=== PATIENT | male | born 1965 | race Caucasian/White ===

== ENCOUNTER → 2023-04-30 | Outpatient (CLI) | payer BC ==
--- NOTE | 2023-04-30 13:59 | US ---
EXAMINATION TYPE: US venous doppler duplex UE RT DATE OF EXAM: 04/30/2023 COMPARISON: NONE CLINICAL INDICATION: Male, 58 years old with history of R22.31 SWELLING, MASS AND LUMP; Redness and s welling right upper extrem SIDE PERFORMED: Right Right Arm: Negative for DVT IMPRESSION: Grayscale, color doppler, spectral doppler imaging performed of the deep veins of the upper extremiti es. There is normal flow, compressibility and vascular waveforms.
== END | disposition home or self-care (01) ==
LOC: RADUSWWP 13:10
PROVIDERS: ATTEND Family Medicine
DX: R22.31 Localized swelling, mass and lump, right upper limb (principal)

== ENCOUNTER 2024-05-26 10:31 | Inpatient (IN) | payer BC, OTHER ==
[2024-05-26] MEDS ORDERED: ALPRAZolam 0.5 MG TAB PO PRN (10:51)
[2024-05-26] MEDS ORDERED: NITROGLYCERIN SL TABS 0.4 MG TAB SUBLINGUAL PRN (10:51)
[2024-05-26] MEDS ORDERED: ALPRAZolam 0.25 MG TAB PO PRN (10:51)
[2024-05-26 11:24] LABS: Basophils % (A) 1 %; Eosinophils # (A) 0.2 k/uL (0-0.7); Eosinophils % (A) 2 %; HCT 47.2 % (39.0-53.0); HGB 16.2 gm/dL (13.0-17.5); Lymphocytes # (A) 1.8 k/uL (1.0-4.8); Lymphocytes % (A) 22 %; MCH 29.5 pg (25.0-35.0); MCHC 34.3 g/dL (31.0-37.0); MCV 86.1 fL (80.0-100.0); Mean Platelet Volume 9.4; Monocytes # (A) 0.5 k/uL (0-1.0); Monocytes % (A) 6 %; Neutrophils # (A) 5.4 k/uL (1.3-7.7); Neutrophils % (A) 69 %; Platelet Count 156 k/uL (150-450); RBC 5.49 m/uL (4.30-5.90); WBC 7.9 k/uL (3.8-10.6)
[2024-05-26] MEDS ORDERED: NALOXONE 0.4 MG/ML 1 ML VIAL IV PRN (11:25)
[2024-05-26 11:31] LABS: African American GFR (CKD) 73 (>60 ml/min/1.73 sqM); Anion Gap 12 mmol/L; Blood Urea Nitrogen 13 mg/dL (9-20); Calcium 9.5 mg/dL (8.4-10.2); Carbon Dioxide 22 mmol/L (22-30); Chloride 108 mmol/L (98-107); Glucose 108 mg/dL (74-99); Non-African American GFR(CKD) 63 (>60 ml/min/1.73 sqM); Potassium 4.3 mmol/L (3.5-5.1); Sodium 142 mmol/L (137-145)
--- NOTE | 2024-05-26 12:08 | ED ---
General Adult HPI - General Chief complaint: Recheck/Abnormal Lab/Rx Stated complaint: abnormal stress test Time Seen by Provider: 05/26/24 10:39 Source: patient, RN notes reviewed, old records reviewed Mode of arrival: ambulatory Limitations: no limitations - History of Present Illness Initial comments: 59 yo male presenting from outpatient stress testing with abnormal stress test. Patient sent in by cardiology with plan for heart catheterization tomorrow. Patient denies current symptoms no chest pain no dyspnea. He states he did have dyspnea approximately 1 month ago which is what prompted his stress test. No nausea. No vomiting. No fever. No cough. - Related Data Allergies Allergy/AdvReac Type Severity Reaction Status Date / Time No Known Allergies Allergy Verified 05/26/24 10:44 Review of Systems ROS Statement: Those systems with pertinent positive or pertinent negative responses have been documented in the HPI. ROS Other: All systems not noted in ROS Statement are negative. Past Medical History Past Medical History: Diabetes Mellitus, Hypertension Additional Past Surgical History / Comment(s): bilateral knee surgery, Past Psychological History: No Psychological Hx Reported Smoking Status: Never smoker Past Alcohol Use History: Occasional Past Drug Use History: None Reported General Exam Limitations: no limitations General appearance: alert, in no apparent distress Head exam: Present: atraumatic, normocephalic Eye exam: Present: normal appearance, PERRL ENT exam: Present: normal exam Neck exam: Present: normal inspection. Absent: tenderness, meningismus Respiratory exam: Present: normal lung sounds bilaterally. Absent: respiratory distress, wheezes Cardiovascular Exam: Present: regular rate, normal rhythm GI/Abdominal exam: Present: soft. Absent: distended, tenderness Extremities exam: Present: normal inspection Course Vital Signs 05/26/24 05/26/24 10:40 11:49 Temperature 98.0 F Pulse Rate 74 62 Respiratory 18 18 Rate Blood Pressure 125/83 135/91 O2 Sat by Pulse 95 96 Oximetry Medical Decision Making - Medical Decision Making Was pt. sent in by a medical professional or institution (, PA, LENS MOUNTER, urgent care, hospital, or shelter...) When possible be specific @ -Sent in by cardiology after abnormal stress test. Did you speak to anyone other than the patient for history (EMS, parent, family, police, friend...)? What history was obtained from this source @ -No Did you review nursing and triage notes (agree or disagree)? Why? @ -I reviewed and agree with nursing and triage notes Were old charts reviewed (outside hosp., previous admission, EMS record, old EKG, old radiological studies, urgent care reports/EKG's, shelter records)? Report findings @ -No old charts were reviewed Differential Chest Pain: Stable Angina, Unstable Angina, STEMI, NSTEMI Aortic Dissection, Pneumothorax, Musculoskeletal, Esophageal Spasm GERD, Cholecystitis, Pancreatitis, Zoster, this is not meant to be an all-inclusive list. EKG interpreted by me (3pts min.). @EKG: Sinus rhythm rate of 65, OH interval 197, QRS duration 102, QTc [address] segment elevation. X-rays interpreted by me (1pt min.). @ -None done CT interpreted by me (1pt min.). @ -None done U/S interpreted by me (1pt. min.). @ -None done What testing was considered but not performed or refused? (CT, X-rays, U/S, labs)? Why? @ -None What meds were considered but not given or refused? Why? @ -None Did you discuss the management of the patient with other professionals (professionals i.e. , PA, LENS MOUNTER, lab, RT, psych nurse, director of social services, client solutions director, teacher, humane officer, protective services case worker)? Give summary @ -No Was smoking cessation discussed for >3mins.? @ -No Was critical care preformed (if so, how long)? @ -No Were there social determinants of health that impacted care today? How? (Homelessness, low income, unemployed, alcoholism, drug addiction, transportation, low edu. Level, literacy, decrease access to med. care, alf, rehab)? @ -No Was there de-escalation of care discussed even if they declined (Discuss DNR or withdrawal of care, Hospice)? DNR status @ -No What co-morbidities impacted this encounter? (DM, HTN, Smoking, COPD, CAD, Cancer, CVA, ARF, Chemo, Hep., AIDS, mental health diagnosis, sleep apnea, morbid obesity)? @ -None Was patient admitted / discharged? Hospital course, mention meds given and route, prescriptions, significant lab abnormalities, going to OR and other pertinent info. @ -59-year-old male presenting for evaluation after abnormal stress test. Patient chest pain-free in the emergency department. Planned to be admitted for heart catheterization tomorrow. Case discussed with the admitting physician Dr. Nice. Undiagnosed new problem with uncertain prognosis? @ -No Drug Therapy requiring intensive monitoring for toxicity (Heparin, Nitro, Insulin, Cardizem)? @ -No Were any procedures done? @ -No Diagnosis/symptom? @Abnormal stress test Acute, or Chronic, or Acute on Chronic? @ -[Acute Uncomplicated (without systemic symptoms) or Complicated (systemic symptoms)? @ -Default Side effects of treatment? @ -No Exacerbation, Progression, or Severe Exacerbation? @ -No Poses a threat to life or bodily function? How? (Chest pain, [place], CO, pneumonia, PE, COPD, DKA, ARF, appy, cholecystitis, CVA, Diverticulitis, Homicidal, Suicidal, threat to staff... and all critical care pts) @ -ACS - Lab Data Result diagrams: 05/26/24 11:09 05/26/24 11:09 Lab Results 05/26/24 05/26/24 Range/Units 11: 11:09 WBC 7.9 (3.8-10.6) k/uL RBC 5.49 (4.30-5.90) m/uL Hgb 16.2 (13.0-17.5) gm/dL Hct 47.2 (39.0-53.0) % MCV 86.1 (80.0-100.0) fL MCH 29.5 (25.0-35.0) pg MCHC 34.3 (31.0-37.0) g/dL RDW 13.0 (11.5-15.5) % Plt Count 156 (150-450) k/uL MPV 9.4 Neutrophils % 69 % Lymphocytes % 22 % Monocytes % 6 % Eosinophils % 2 % Basophils % 1 % Neutrophils # 5.4 (1.3-7.7) k/uL Lymphocytes # 1.8 (1.0-4.8) k/uL Monocytes # 0.5 (0-1.0) k/uL Eosinophils # 0.2 (0-0.7) k/uL Basophils # 0.0 (0-0.2) k/uL Sodium 142 (137-145) mmol/L Potassium 4.3 (3.5-5.1) mmol/L Chloride 108 H (98-107) mmol/L Carbon Dioxide 22 (22-30) mmol/L Anion Gap 12 mmol/L BUN 13 (9-20) mg/dL Creatinine 1.24 (0.66-1.25) mg/dL Est GFR (CKD-EPI)AfAm 73 (>60 ml/min/1.73 sqM) Est GFR (CKD-EPI)NonAf 63 (>60 ml/min/1.73 sqM) Glucose 108 H (74-99) mg/dL Calcium 9.5 (8.4-10.2) mg/dL Disposition Clinical Impression: Abnormal stress test Disposition: ADMITTED IP TO THIS [facility] Condition: Stable Is patient prescribed a controlled substance at d/c from ED?: No Referrals: Bhavesh Plummer DO [Primary Care Provider] - 1-2 days Time of Disposition: 12:08
[2024-05-26 12:11] LABS: Glucose,Whole Blood 96 mg/dL (70-110)
--- NOTE | 2024-05-26 12:47 | P.CRDCN ---
History of Present Illness History of present illness: HISTORY OF PRESENT ILLNESS: This is a 59-year-old male with a past medical history significant for hypertension, hyperlipidemia, and diabetes. Patient does not follow with a news librarian. Patient initially presented to the hospital this morning for an outpatient stress test. Patient states he has been having shortness of breath with exertion for approximately 2 months. Patient exercised for approximately 7 minutes on the treadmill. He was unable to reach his target heart rate due to significant shortness of breath. Patient did appear slightly ashen in color at that time. He denied having any chest pain. He did report having maybe some vague chest tightness. EKG at that time revealed ST elevation in aVR and ST depressions in inferior lateral leads. Patient's EKG changes did resolve with rest. Recommendation was made for hospital admission with cardiac catheterization to be performed tomorrow. The patient is agreeable. He is a non-smoker. He reports a family history of heart disease. He states his dad had issues with his heart valves but does not think he had any problems with heart blockages. DIAGNOSTICS: - EKG reveals this mechanism with no signs of acute ischemia. - Laboratory data: WBC 7.9. Hemoglobin 16.2. Platelet count 156. Sodium 142. Potassium 4.3. BUN 13. Creatinine 1.24. - Current home cardiac medications include metoprolol tartrate 100 mg twice a day and amlodipine 10 mg daily REVIEW OF SYSTEMS: At the time of my exam: CONSTITUTIONAL: Denies fever or chills. HEENT: Denies blurred vision, vision changes, or eye pain. Denies hemoptysis CARDIOVASCULAR: Denies chest pain. Denies orthopnea. Denies PND. Denies palpitations RESPIRATORY: Denies shortness of breath. GASTROINTESTINAL: Denies abdominal pain. Denies nausea or vomiting. HEMATOLOGIC: Denies bleeding disorders. GENITOURINARY: Denies any blood in urine. SKIN: Denies pruitis. Denies rash. PHYSICAL EXAM: VITAL SIGNS: Reviewed. GENERAL: Well-developed in no acute distress. HEENT: Head is normocephalic. Pupils are equal, round. Sclerae anicteric. Mucous membranes of the mouth are moist. Neck supple. No JVD or thyromegaly LUNGS: Respirations even and unlabored. Lungs essentially clear to auscultation bilaterally. HEART: Regular rate and rhythm. S1 and S2 heard. ABDOMEN: Soft. Nondistended. Nontender. EXTREMITIES: Normal range of motion. No clubbing or cyanosis. Peripheral pulses intact. No lower extremity edema NEUROLOGIC: Awake and alert. Oriented x 3. ASSESSMENT: Exertional shortness of breath x 2 months Abnormal stress test with ST elevation in aVR and ST depression in inferior lateral leads, concerning for CAD Hypertension Hyperlipidemia Diabetes Obesity: BMI 34.4 PLAN: Obtain 2D echo to assess cardiac structure and function Resume home cardiac medications Add aspirin 81 mg daily and atorvastatin 80 mg at night Check hemoglobin A1c and lipid panel N.p.o. at midnight Patient to undergo cardiac catheterization tomorrow with Dr. Morel at 0900 Patient DOES NOT require troponins to be drawn. Additionally, No IV heparin indicated at this time. Add subcu heparin. Admit to 6N with telemetry Further recommendations pending patient course Nurse practitioner note has been reviewed by physician. Signing provider agrees with the documented findings, assessment, and plan of care documented by ASSOCIATE SOFTWARE DEVELOPER as a scribe. Past Medical History Past Medical History: Diabetes Mellitus, Hypertension Additional Past Surgical History / Comment(s): bilateral knee surgery, Past Psychological History: No Psychological Hx Reported Smoking Status: Never smoker Past Alcohol Use History: Occasional Past Drug Use History: None Reported Medications and Allergies Home Medications Medication Instructions Recorded Confirmed Type Colchicine 0.6 mg PO BID PRN 05/26/24 05/26/24 History Febuxostat [Uloric] 80 mg PO DAILY 05/26/24 05/26/24 History HYDROcodone/APAP 10-325MG [[place] 1 tab PO TID 05/26/24 05/26/24 History 10-325] Metoprolol Tartrate [Lopressor] 100 mg PO BID 05/26/24 05/26/24 History Probenecid [Benemid] 500 mg PO BID 05/26/24 05/26/24 History Semaglutide [Ozempic] 0.5 mg SQ MO 05/26/24 05/26/24 History amLODIPine [Norvasc] 10 mg PO DAILY 05/26/24 05/26/24 History Allergies Allergy/AdvReac Type Severity Reaction Status Date / Time No Known Allergies Allergy Verified 05/26/24 12:19 Physical Exam Vitals: Vital Signs Temp Pulse Resp BP Pulse Ox 05/26/24 11:49 62 18 135/91 96 05/26/24 10:40 98.0 F 74 18 125/83 95 Intake and Output 05/25/24 05/26/24 05/26/24 22:59 06:59 14:59 Other: Weight 108.862 kg Results 05/26/24 11:09 05/26/24 11:09 CBC 05/26/24 Range/Units 11:09 WBC 7.9 (3.8-10.6) k/uL RBC 5.49 (4.30-5.90) m/uL Hgb 16.2 (13.0-17.5) gm/dL Hct 47.2 (39.0-53.0) % Plt Count 156 (150-450) k/uL Comprehensive Metabolic Panel 05/26/24 Range/Units 11:09 Sodium 142 (137-145) mmol/L Potassium 4.3 (3.5-5.1) mmol/L Chloride 108 H (98-107) mmol/L Carbon Dioxide 22 (22-30) mmol/L BUN 13 (9-20) mg/dL Creatinine 1.24 (0.66-1.25) mg/dL Glucose 108 H (74-99) mg/dL Calcium 9.5 (8.4-10.2) mg/dL Current Medications Generic Name Dose Route Start Last Admin Trade Name Freq PRN Reason Stop Dose Admin Alprazolam 0.25 mg 05/26/24 10:51 Alprazolam 0.25 Mg Tab PO Q6HR PRN Mild Anxiety Alprazolam 0.5 mg 05/26/24 10:51 Alprazolam 0.5 Mg Tab PO Q6HR PRN Moderate Anxiety Amlodipine Besylate 10 mg 05/27/24 09:00 Amlodipine 10 Mg Tab PO DAILY PEDRO Aspirin 81 mg 05/27/24 09:00 Aspirin 81 Mg PO DAILY PEDRO Aspirin 325 mg 05/27/24 05:00 Aspirin 325 Mg Tab PO 05/27/24 05:01 ONCE ONE Atorvastatin Calcium 80 mg 05/26/24 21:00 Atorvastatin 80 Mg Tab PO HS PEDRO Atorvastatin Calcium 80 mg 05/27/24 05:00 Atorvastatin 80 Mg Tab PO 05/27/24 05:01 ONCE ONE Heparin Sodium (Porcine) 10, 1,001 mls @ 999 mls/hr 05/27/24 07:00 000 unit/ Sodium Chloride IRRIGATION 05/27/24 23:00 ONCE PRN INTRA-OP Heparin Sodium (Porcine) 2,500 250.5 mls @ 250 mls/hr 05/27/24 07:00 unit/ Sodium Chloride IRRIGATION 05/27/24 23:00 ONCE PRN INTRA-OP Sodium Chloride 1,000 ml/ IV 1,000 mls @ 108.862 mls/hr 05/27/24 02:00 Solution IV .Q9H12M PEDRO 1 ML/KG/HR Naloxone HCl 0.2 mg 05/26/24 11:25 Naloxone 0.4 Mg/Ml 1 Ml Vial IV 06/25/24 11:24 Q2M PRN Opioid Reversal Nitroglycerin 0.4 mg 05/26/24 10:51 Nitroglycerin Sl Tabs 0.4 Mg Tab SUBLINGUAL Q5M PRN Chest Pain Non-Formulary Medication 100 mg 05/26/24 21:00 Metoprolol Tartrate [Lopressor] PO BID PEDRO Intake and Output 05/25/24 05/26/24 05/26/24 22:59 06:59 14:59 Other: Weight 108.862 kg Patient Weight 05/27/24 06:59 Weight 108.862 kg 05/26/24 11:09 05/26/24 11:09
[2024-05-26] MEDS: NITROGLYCERIN OINT 1 INCH/GM PACKET TOPICAL SCH (14:04)
[2024-05-26 15:06] LABS: Chol/HDL Ratio 6.06 Ratio; LDL Cholesterol,Calculated 147.5 mg/dL (0.0-131.0)
[2024-05-26] MEDS: HEPARIN SODIUM,PORCINE 5,000 UNIT/ML 1 ML VIAL SQ SCH (15:53)
--- NOTE | 2024-05-26 16:35 | XR ---
EXAMINATION TYPE: XR chest 1V DATE OF EXAM: 05/26/2024 COMPARISON: NONE HISTORY: Chest pain TECHNIQUE: Single frontal view of the chest is obtained. FINDINGS: There is no focal air space opacity, pleural effusion, or pneumothorax seen. The cardiac silhouette size is within normal limits. The osseous structures are intact. IMPRESSION: No acute process. [facility], Workstation: [facility], 05/26/2024 4:33 PM
--- NOTE | 2024-05-26 17:44 | P.HPIM ---
History of Present Illness H&P Date: 05/26/24 Patient is a 59-year-old male with history of type 2 diabetes, hyperlipidemia and hypertension came to the ER after he had a abnormal stress test at cardiology office earlier today. Patient says that he has been having mild exertional dyspnea associated with some chest tightness for approximately 2 to 3 months. Patient states that he only experiences these symptoms while he is exerting himself physically and these will resolve at rest. He is not complaining of any active chest pain and or shortness of breath. No recent upper respiratory tract infection. Denies previous episodes of coronary artery disease and or CVA. Denies previous history of arrhythmias. Patient has a recent travel history where he flew from [place] to [place] last week. Denies any lower extremity pain. Denies being on any blood thinner. No recent hospitalization. Patient admits to having orthopnea but denies PND. Patient denies uses of illicit drugs and is a chronic non-smoker. Lab evaluation in the ER shows WBC of 7.9, hemoglobin 16.2, MCV 86.1, platelet count 136, sodium 142, potassium 4.3, chloride 108, bicarb 22, BUN 13, creatinine 1.24, EGFR 73, glucose 108, HbA1c 6.7, calcium 9.5, cholesterol 220, LDL 147, HDL 36.3 Chest x-ray interpreted independently shows no acute cardiopulmonary process. EKG interpreted independently shows sinus rhythm with normal QRS and QTc. Poor R wave progression. Review of systems: Pertinent positives and negatives as discussed in HPI, a complete review of sy stems was performed and all other systems are negative. Family History: Coronary artery disease in father Physical examination: Vital signs reviewed General: non toxic, no distress, appears at stated age, normal weight Derm: no unusual rashes/lesions, warm Head: atraumatic, normocephalic, symmetric Eyes: EOMI, no lid lag, anicteric sclera, pupils equal round reactive to light ENT: Nose and ears atraumatic Neck: No cervical lymphadenopathy, trachea midline, supple Mouth: no lip lesion, mucus membranes moist Cardiovascular: S1S2 reg, no murmur, positive dorsalis pedis pulse bilateral, no edema Lungs: CTA bilateral, no rhonchi, no rales, no accessory muscle use Abdominal: soft, nontender to palpation, no guarding Ext: muscle strength 5 out of 5 in all 4 extremities grossly, no gross muscle atrophy, no contractures, Neuro: CN II-XI grossly intact, no gross focal neuro deficits Psych: Alert, oriented, appropriate affect Assessment/Plan: 59-year-old male with history of type 2 diabetes, hyperlipidemia, and hypertension initially came to the ER with a abnormal stress test done outpati ent cardiology. Patient is admitted for stable angina with cardiac catheterization planned for tomorrow. #Abnormal stress test #Unstable angina Aspirin 81 mg p.o. daily Lipitor 80 mg p.o. at bedtime Heparin drip Cardiology consulted, cardiac cath tomorrow a.m. Nitro sublingual tablets Order lipid panel, TSH, HbA1c Trend troponin every 3 hours Echocardiogram Heart healthy diet and n.p.o. after midnight Continue cardiac monitoring CBC and BMP tomorrow Chest x-ray ordered Chronic condition: Hypertension: Resume Norvasc 10 mg p.o. daily Type 2 diabetes: Hold Ozempic Gout: Hold colchicine, Pepcid statin: Probenecid DVT prophylaxis: Heparin The patient is admitted with an anticipated less than 2 midnight stay for evaluation of abnormal stress test CODE STATUS: Full code Discussed with: Patient Anticipated discharge place: Home I saw and evaluated the patient during the manriquez and critical portions of this encounter, and discussed the case in detail with the resident author of this note, I agree with the Assessment and Plan, and my changes, if any, are highlighted in blue. Past Medical History Past Medical History: Diabetes Mellitus, Hypertension Additional Past Surgical History / Comment(s): bilateral knee surgery, Past Psychological History: No Psychological Hx Reported Smoking Status: Never smoker Past Alcohol Use History: Occasional Past Drug Use History: None Reported Medications and Allergies Home Medications Medication Instructions Recorded Confirmed Type Colchicine 0.6 mg PO BID PRN 05/26/24 05/26/24 History Febuxostat [Uloric] 80 mg PO DAILY 05/26/24 05/26/24 History HYDROcodone/APAP 10-325MG [[place] 1 tab PO TID 05/26/24 05/26/24 History 10-325] Metoprolol Tartrate [Lopressor] 100 mg PO BID 05/26/24 05/26/24 History Probenecid [Benemid] 500 mg PO BID 05/26/24 05/26/24 History Semaglutide [Ozempic] 0.5 mg SQ MO 05/26/24 05/26/24 History amLODIPine [Norvasc] 10 mg PO DAILY 05/26/24 05/26/24 History Allergies Allergy/AdvReac Type Severity Reaction Status Date / Time No Known Allergies Allergy Verified 05/26/24 12:19 Physical Exam Osteopathic Statement: *. No significant issues noted on an osteopathic structural exam other than those noted in the History and Physical/Consult. Vitals: Vital Signs Temp Pulse Resp BP Pulse Ox 05/26/24 15:26 57 L 18 127/73 96 05/26/24 14:17 61 18 131/83 05/26/24 12:41 61 18 124/96 97 05/26/24 11:49 62 18 135/91 96 05/26/24 10:40 98.0 F 74 18 125/83 95 Intake and Output 05/26/24 05/26/24 05/26/24 06:59 14:59 22:59 Other: Weight 108.862 kg Results CBC & Chem 7: 05/26/24 11:09 05/26/24 11:09 Labs: Abnormal Lab Results - Last 24 Hours (Table) 05/26/24 05/26/24 05/26/24 Range/Units 11:09 11:09 11:09 Chloride 108 H (98-107) mmol/L Glucose 108 H (74-99) mg/dL Hemoglobin A1c 6.7 H (<=6.0) % Triglycerides 181.00 H (0.00-149.00) mg/dL Cholesterol 220.00 H (0.00-200.00) mg/dL LDL Cholesterol, Calc 147.5 H (0.0-131.0) mg/dL HDL Cholesterol 36.30 L (40.00-60.00) mg/dL
--- NOTE | 2024-05-26 17:45 | CA ---
Transthoracic Echo Report Name: Nilson Boswell Age: 59 Gender: M : 1965 Exam Date: 05/26/2024 13:57 Exam Location: [facility] Ht (in): 70 Wt (lb): 249 Ordering Physician: Danielle Moreno Attending/Referring Phys: [id number], Josh Medical Van Driver Liliana Dominguez, NILO Procedure CPT: Indications: LV function, abnormal stress test Cardiac Hx: Technical Quality: Fair Contrast 1: Total Dose (mL): Contrast 2: Total Dose (mL): MEASUREMENTS (Male / Female) Normal Values 2D ECHO LV Diastolic Diameter PLAX 3.1 cm 4.2 - 5.9 / 3.9 - 5.3 cm LV Systolic Diameter PLAX 3.0 cm IVS Diastolic Thickness 1.2 cm 0.6 - 1.0 / 0.6 - 0.9 cm LVPW Diastolic Thickness 1.1 cm 0.6 - 1.0 / 0.6 - 0.9 cm LV Relative Wall Thickness 0.7 RV Internal Dim ED PLAX 2.9 cm LVOT Diameter 1.7 cm LA Systolic Diameter LX 3.6 cm 3.0 - 4.0 / 2.7 - 3.8 cm LV Diastolic Volume MOD BP 56.2 cm??? 67 - 155 / 56 - 104 cm??? LV Systolic Volume MOD BP 33.9 cm??? 22 - 58 / 19 - 49 cm??? LV Ejection Fraction MOD BP 39.8 % >= 55 % LV Diastolic Volume MOD 4C 51.5 cm??? LV Systolic Volume MOD 4C 37.0 cm??? LV Ejection Fraction MOD 4C 55.0 % LV Diastolic Length 4C 7.6 cm LV Systolic Length 4C 6.6 cm LV Diastolic Volume MOD 2C 61.1 cm??? LV Systolic Volume MOD 2C 28.8 cm??? LV Ejection Fraction MOD 2C 52.9 % LV Diastolic Length 2C 7.4 cm LV Systolic Length 2C 7.2 cm LA Volume 41.5 cm??? 18 - 58 / 22 - 52 cm??? LA Volume Index 17.3 cm???/m??? 16 - 28 cm???/m??? M-MODE Aortic Root Diameter MM 3.1 cm LA Systolic Diameter MM 3.2 cm LA Ao Ratio MM 1.0 AV Cusp Separation MM 1.1 cm DOPPLER AV Peak Velocity 175.6 cm/s AV Peak Gradient 12.3 mmHg AV Mean Velocity 123.6 cm/s AV Mean Gradient 6.8 mmHg AV Velocity Time Integral 41.8 cm LVOT Peak Velocity 84.5 cm/s LVOT Peak Gradient 2.9 mmHg LVOT Velocity Time Integral 20.1 cm LVOT Stroke Volume 47.5 cm??? LVOT Stroke Volume Index 20.7 ml/m??? AV Area Cont Eq vti 1.1 cm??? AV Area Cont Eq pk 1.1 cm??? MV Area PHT 3.4 cm??? Mitral E Point Velocity 89.1 cm/s Mitral A Point Velocity 79.3 cm/s Mitral E to A Ratio 1.1 MV Deceleration Time 220.9 ms TR Peak Velocity 221.9 cm/s TR Peak Gradient 19.7 mmHg FINDINGS Left Ventricle Left ventricular ejection fraction is estimated at 55-60 %. Mildly increased septal wall thickness. Normal left ventricular systolic function with no obvious regional wall motion abnormalities. Left ventricular cavity size normal. Right Ventricle Normal right ventricular size and function. Right ventricular systolic pressure within normal limits. Right Atrium Normal right atrial size. Left Atrium Normal left atrial size. Mitral Valve Structurally normal mitral valve. Mild mitral regurgitation. No mitral stenosis. Aortic Valve Trileaflet aortic valve. Focal thickening of the aortic valve cusps. Diffuse thickening (sclerosis) of the aortic valve cusps without reduced excursion. No aortic regurgitation. Tricuspid Valve Structurally normal tricuspid valve. Trace tricuspid regurgitation. No tricuspid stenosis. Pulmonic Valve Structurally normal pulmonic valve. Trace pulmonic regurgitation. No pulmonic stenosis. Pericardium No pericardial or pleural effusion. Aorta Normal size aortic root and proximal ascending aorta. CONCLUSIONS Normal LV function Aortic sclerosis without any stenosis Previewed by: Dr. Darnell Morel MD (Electronically Signed) Final Date: 26 May 2024 17:44
[2024-05-26] MEDS: METOPROLOL TARTRATE 50 MG TAB PO SCH (19:56)
[2024-05-26] MEDS: ATORVASTATIN 80 MG TAB PO SCH (19:56)
[2024-05-27] MEDS: SODIUM CHLORIDE 0.9% 1,000 ML in EMPTY BAG 1 BAG IV SCH (00:52)
[2024-05-27] MEDS: ATORVASTATIN 80 MG TAB PO ONE (05:46)
[2024-05-27] MEDS: ASPIRIN 325 MG TAB PO ONE (05:46)
[2024-05-27] MEDS ORDERED: HEPARIN SODIUM,PORCINE (1 ML) 2,500 UNIT in SODIUM CHLORIDE 0.9% 250 ML IRRIGATION PRN (07:00)
[2024-05-27] MEDS ORDERED: HEPARIN SODIUM,PORCINE 10,000 UNIT in SODIUM CHLORIDE 0.9% 1,000 ML IRRIGATION PRN (07:00)
[2024-05-27] MEDS: ASPIRIN 81 MG PO SCH (08:21)
[2024-05-27 08:30] LABS: Basophils # (A) 0.05 X 10*3/uL (0.00-0.10); Basophils % (A) 0.8 %; Eosinophils # (A) 0.16 X 10*3/uL (0.04-0.35); Eosinophils % (A) 2.7 %; HCT 43.3 % (39.6-50.0); HGB 15.1 g/dL (13.0-17.0); Lymphocytes # (A) 2.06 X 10*3/uL (0.90-5.00); Lymphocytes % (A) 34.9 %; MCH 29.3 pg (27.0-32.0); MCHC 34.9 g/dL (32.0-37.0); MCV 84.1 FL (80.0-97.0); Mean Platelet Volume 11.4 FL (9.5-12.2); Monocytes # (A) 0.44 X 10*3/uL (0.20-1.00); Monocytes % (A) 7.5 %; NRBC Per 100 WBC 0 X 10*3/uL (0.00-0.01); Neutrophils # (A) 3.17 X 10*3/uL (1.80-7.70); Neutrophils % (A) 53.8 %; Platelet Count 146 X 10*3/uL (140-440); RBC 5.15 X 10*6/uL (4.40-5.60); RDW 12.5 % (11.5-14.5)
[2024-05-27] MEDS: amLODIPine 10 MG TAB PO SCH (08:32)
[2024-05-27 09:05] LABS: BUN/Creat Ratio 11.91 Ratio (12.00-20.00); Blood Urea Nitrogen 13.1 mg/dL (9.0-27.0); Calcium 8.9 mg/dL (8.7-10.3); Carbon Dioxide 20.8 mmol/L (21.6-31.8); Chloride 108 mmol/L (96-109); Glucose 97 mg/dL (70-110); Sodium 140 mmol/L (135-145)
[2024-05-27] MEDS: MIDAZOLAM 2 MG/2 ML VIAL IVP ONE (10:29)
[2024-05-27] MEDS: fentaNYL (PF) 50 MCG/ML 2 ML AMP IVP ONE (10:29)
[2024-05-27] MEDS: LIDOCAINE 1% INJ 10MG/ML (20 ML MDV) SQ ONE (10:30)
[2024-05-27] MEDS: VERAPAMIL SYRINGE (5 MG/10 ML) INTRAARTER ONE (10:32)
[2024-05-27] MEDS: HEPARIN SODIUM 1,000 UN/ML (10ML VL) IVP ONE (10:35)
[2024-05-27] MEDS: IOPAMIDOL-370 100ML BTL INJ ONE (10:55)
[2024-05-27] MEDS: IV FLUID CONTINUATION 250 ML IV ONE (10:56)
[2024-05-27] MEDS: HEPARIN SODIUM,PORCINE 10,000 UNIT in SODIUM CHLORIDE 0.9% 1,000 ML IRRIGATION ONE (10:56)
[2024-05-27] MEDS: HEPARIN SODIUM,PORCINE (1 ML) 2,500 UNIT in SODIUM CHLORIDE 0.9% 250 ML IRRIGATION ONE (10:56)
[2024-05-27] MEDS ORDERED: HEPARIN SODIUM 1,000 UN/ML (10ML VL) IV PRN (11:09)
--- NOTE | 2024-05-27 11:36 | LTR ---
Dear Bhavesh: I performed cardiac catheterization on Elbert. A detailed catheterization note is enclosed for your records. He came to [facility] for a stress test and because of a markedly abnormal stress test, we admitted him to hospital and performed a cardiac catheterization today that revealed severe 2-vessel coronary artery disease involving the ostial portions of the circ and LAD. The patient will benefit from surgical revascularization and I have consulted Dr. Marie for the same. Thank you for allowing me to participate in this pleasant gentleman. VANNESA / DIANEN: [id number] /
--- NOTE | 2024-05-27 11:36 | CC ---
CARDIAC CATHETERIZATION REPORT INDICATION: Unstable angina. This is a 59-year-old gentleman with history of progressively worsening shortness of breath with activity and chest tightness for the last several weeks, who came into hospital yesterday for an outpatient stress test, walked on the treadmill for 7.5 minutes, had significant ST-segment depression at maximal workload with ST elevation in AVR and was very short of breath. Due to this, I admitted him to perform cardiac catheterization. PROCEDURE NOTE: After obtaining informed consent, left heart catheterization and coronary angiogram were performed via the right radial artery using standard Valerie catheters. The patient tolerated the procedure well without any obvious immediate complications. A TR band was used for hemostasis. The patient received moderate conscious sedation. Total sedation time was 15 minutes. FINDINGS: 1. HEMODYNAMICS: Left ventricular end-diastolic pressure is 8 mm. There is no significant gradient across the aortic valve. 2. LEFT VENTRICULOGRAM: Left ventriculogram was not performed. 3. ANGIOGRAPHIC DATA: a.Right coronary artery: Right coronary artery is a large dominant vessel with mild nonobstructive disease involving mid to distal portion. b.Left main coronary artery appears calcified. The distal left main has a 50% stenosis. The ostial circumflex coronary artery shows a focal 95% stenosis. LAD also has a 90% ostial stenosis via filling defect in the proximal LAD. CONCLUSION: Two-vessel coronary artery disease involving ostial circ and LAD with distal left main stenosis. PLAN: I consulted Dr. Marie and spoke to him. He is going to evaluate the patient today and hopefully the patient will undergo surgery on this admission. I am going to start the patient on heparin later in the day and treat him with aspirin, nitrates, beta blockers, and JENNIFER inhibitors. MMODL / IJN: [id number] /
--- NOTE | 2024-05-27 12:21 | P.GSCN ---
History of Present Illness Consult date: 05/27/24 Reason for Consult: Multivessel coronary artery disease Requesting physician: Darnell Morel History of present illness: This is a 59-year-old gentleman who follows outpatient with Dr. Bhavesh Plummer for internal medicine. He has a previous medical history of hypertension, hyperlipidemia, borderline diabetes, obesity, lifelong non-smoker, and family history of coronary artery disease including premature coronary artery disease in his grandfather. He reports progressive shortness of breath with exertion only for the previous month prompting a stress test completed yesterday. The patient denies any chest pain, nausea, vomiting, dizziness, lightheadedness, or any other symptomatology. Stress test was abnormal with ST elevation in lead aVR and ST depression in the inferolateral leads. He was recommended to report to [facility] emergency room for evaluation and treatment with plans for heart catheterization which was completed today by Dr. Morel. This revealed triple-vessel coronary artery disease. Due to these findings consultation was placed to Dr. Marie from cardiothoracic surgery for surgical revascularization recommendations. Of note patient had a transthoracic echocardiogram completed yesterday revealing preserved left ventricular systolic function with EF 55 to 60%, no wall motion abnormalities, mild mitral and trace tricuspid regurgitation. Review of Systems Review of systems was completed and was negative except as noted - Cardiovascular Reports as per HPI, Reports dyspnea on exertion Past Medical History Past Medical History: Diabetes Mellitus, Hyperlipidemia, Hypertension History of Any Multi-Drug Resistant Organisms: None Reported Past Surgical History: Orthopedic Surgery Additional Past Surgical History / Comment(s): bilateral knee surgery, Past Anesthesia/Blood Transfusion Reactions: No Reported Reaction Past Psychological History: No Psychological Hx Reported Smoking Status: Never smoker Past Alcohol Use History: Occasional Past Drug Use History: None Reported - Past Family History Father Family Medical History: Myocardial Infarction ([place]) Additional Family Medical History / Comment(s): Grandfather diagnosed with early coronary artery disease Mother Family Medical History: Dementia, Myocardial Infarction ([place]) Medications and Allergies Home Medications Medication Instructions Recorded Confirmed Type Colchicine 0.6 mg PO BID PRN 05/26/24 05/26/24 History Febuxostat [Uloric] 80 mg PO DAILY 05/26/24 05/26/24 History HYDROcodone/APAP 10-325MG [[place] 1 tab PO TID 05/26/24 05/26/24 History 10-325] Metoprolol Tartrate [Lopressor] 100 mg PO BID 05/26/24 05/26/24 History Probenecid [Benemid] 500 mg PO BID 05/26/24 05/26/24 History Semaglutide [Ozempic] 0.5 mg SQ MO 05/26/24 05/26/24 History amLODIPine [Norvasc] 10 mg PO DAILY 05/26/24 05/26/24 History Allergies Allergy/AdvReac Type Severity Reaction Status Date / Time No Known Allergies Allergy Verified 05/26/24 12:19 Surgical - Exam Vital Signs Temp Pulse Resp BP Pulse Ox 98.0 F 74 18 125/83 95 05/26/24 10:40 05/26/24 10:40 05/26/24 10:40 05/26/24 10:40 05/26/24 10:40 CONSTITUTIONAL: Awake and alert, appears comfortable, cooperative, well- developed, well-nourished, no pain, no acute distress EYES: Pupils equal, round, reactive to light, normal ocular movement ENT: Moist mucous membranes without oral lesions present NECK: No masses, no bruits, trachea midline RESPIRATORY: Lungs sounds clear to auscultation bilaterally. Respirations even, nonlabored. Currently on room air with oxygen saturation 97%. Strong cough. No chest wall deformities. No clubbing or cyanosis present CARDIOVASCULAR: S1, S2 present. Regular rate and rhythm, sinus rhythm on telemetry. Palpable peripheral pulses bilaterally. No edema present. No calf pain or tenderness noted. No significant lower extremity varicosities noted. Left radial Lorenzo's test less than 8 seconds. GASTROINTESTINAL: Abdomen soft, nontender, nondistended without masses or organomegaly noted. There is no rebound or guarding present. Active bowel sounds present 4 quadrants. GENITOURINARY: Deferred INTEGUMENTARY: Skin is warm and dry with evidence of good perfusion. Right radial heart catheterization site without edema or drainage, T band in place NEUROLOGIC: Cranial nerves II through XII intact, normal coordination, no obvious motor or sensory deficits, speech is normal MUSKULOSKELETAL: Able to move all extremities, strength equal bilaterally, normal posture PSYCHIATRIC: Alert and oriented to person place and time, appropriate affect, intact judgment and insight CLINICAL FRAILTY SCORE 2 Results - Labs 05/27/24 04:43 05/27/24 04:43 Abnormal Lab Results - Last 24 Hours (Table) 05/26/24 05/26/24 05/27/24 Range/Units 11: 11: 04:43 Carbon Dioxide (21.6-31.8) mmol/L BUN/Creatinine Ratio (12.00-20.00) Ratio Hemoglobin A1c 6.7 H 6.6 H (<=6.0) % Triglycerides 181.00 H (0.00-149.00) mg/dL Cholesterol 220.00 H (0.00-200.00) mg/dL LDL Cholesterol, Calc 147.5 H (0.0-131.0) mg/dL HDL Cholesterol 36.30 L (40.00-60.00) mg/dL 05/27/24 Range/Units 04:43 Carbon Dioxide 20.8 L (21.6-31.8) mmol/L BUN/Creatinine Ratio 11.91 L (12.00-20.00) Ratio Hemoglobin A1c (<=6.0) % Triglycerides (0.00-149.00) mg/dL Cholesterol (0.00-200.00) mg/dL LDL Cholesterol, Calc (0.0-131.0) mg/dL HDL Cholesterol (40.00-60.00) mg/dL Diabetes panel 05/26/24 05/26/24 05/27/24 Range/Units 11: 11: 04:43 Sodium (135-145) mmol/L Potassium (3.5-5.5) mmol/L Chloride (96-109) mmol/L Carbon Dioxide (21.6-31.8) mmol/L BUN (9.0-27.0) mg/dL Creatinine (0.6-1.5) mg/dL Glucose (70-110) mg/dL Hemoglobin A1c 6.7 H 6.6 H (<=6.0) % Calcium (8.7-10.3) mg/dL Triglycerides 181.00 H (0.00-149.00) mg/dL HDL Cholesterol 36.30 L (40.00-60.00) mg/dL 05/27/24 Range/Units 04:43 Sodium 140 (135-145) mmol/L Potassium 4.0 (3.5-5.5) mmol/L Chloride 108 (96-109) mmol/L Carbon Dioxide 20.8 L (21.6-31.8) mmol/L BUN 13.1 (9.0-27.0) mg/dL Creatinine 1.1 (0.6-1.5) mg/dL Glucose 97 (70-110) mg/dL Hemoglobin A1c (<=6.0) % Calcium 8.9 (8.7-10.3) mg/dL Triglycerides (0.00-149.00) mg/dL HDL Cholesterol (40.00-60.00) mg/dL Thyroid panel 05/27/24 Range/Units 04:43 TSH 3.320 (0.350-5.500) UIU/ML Calcium panel 05/27/24 Range/Units 04:43 Calcium 8.9 (8.7-10.3) mg/dL Pituitary panel 05/27/24 Range/Units 04:43 Sodium 140 (135-145) mmol/L Potassium 4.0 (3.5-5.5) mmol/L Chloride 108 (96-109) mmol/L Carbon Dioxide 20.8 L (21.6-31.8) mmol/L BUN 13.1 (9.0-27.0) mg/dL Creatinine 1.1 (0.6-1.5) mg/dL Glucose 97 (70-110) mg/dL Calcium 8.9 (8.7-10.3) mg/dL TSH 3.320 (0.350-5.500) UIU/ML Adrenal panel 05/27/24 Range/Units 04:43 Sodium 140 (135-145) mmol/L Potassium 4.0 (3.5-5.5) mmol/L Chloride 108 (96-109) mmol/L Carbon Dioxide 20.8 L (21.6-31.8) mmol/L BUN 13.1 (9.0-27.0) mg/dL Creatinine 1.1 (0.6-1.5) mg/dL Glucose 97 (70-110) mg/dL Calcium 8.9 (8.7-10.3) mg/dL - Imaging Chest x-ray: report reviewed, image reviewed EKG: image reviewed Additional studies: Heart catheterization films reviewed Assessment and Plan Assessment: Two vessel and left main coronary artery disease with exertional SOB as anginal equivalent. History of hypertension Hyperlipidemia, cholesterol 220, LDL 148, triglycerides 181 Borderline diabetes, hemoglobin A1c 6.6% Obesity Lifelong non-smoker Family history of premature coronary artery disease ADDENDUM: Patient seen and examined. Studies reviewed. Case discussed with Dr Morel. He requests CABG this admission. Plan CABG x 2 with [place] LAD and LRA OM this . Plan: The patient was seen and examined laying in bed on the observation unit in no acute distress. Family was present. The patient currently denies any chest pain or shortness of breath. Chart/diagnostics were reviewed. The usual course of open-heart surgery was discussed in detail with the patient and his family, risks and benefits were reviewed, all questions were answered. The case will be discussed with Dr. Marie. Recommend maximizing medical therapy with aspirin, statin, beta-cristina. Will order preoperative testing, once completed we will calculate STS risk score and discuss with the patient. Increase activity as tolerated. More recommendations to follow once surgeon has had the opportunity to review the patient's films. Thank you Dr. Morel for this consult, we will continue to follow along with you and make further recommendations as appropriate. I have personally seen and examined the patient, performed the documentation and the assessment and plan as written. Number of minutes spent on the visit: 30. Melodie Pizarro, KANWAL-C
--- NOTE | 2024-05-27 13:49 | US ---
EXAMINATION TYPE: US carotid duplex BILAT DATE OF EXAM: 05/27/2024 COMPARISON: NONE CLINICAL INDICATION: Male, 59 years old with history of preop cardiac surgery; open heart surgery Additional History: .... TECHNIQUE: Grayscale, color Doppler and spectral Doppler evaluation of the bilateral carotid systems and vertebral arteries.Indirect Doppler criteria was utilized. FINDINGS: EXAM MEASUREMENTS: RIGHT: Peak Systolic Velocity (PSV) cm/sec ----- Right CCA: 58.6 ----- Right ICA: 70.3 ----- Right ECA: 92.5 ICA/CCA ratio: 1.2 RIGHT: End Diastole cm/sec ----- Right CCA: 14.2 ----- Right ICA: 15.5 ----- Right ECA: 9.0 LEFT: Peak Systolic Velocity (PSV) cm/sec ----- Left CCA: 61.5 ----- Left ICA: 98.4 ----- Left ECA: 137.7 ICA/CCA ratio: 1.6 LEFT: End Diastole cm/sec ----- Left CCA: 14.2 ----- Left ICA: 22.5 ----- Left ECA: 13.6 VERTEBRALS (direction of flow): Right Vertebral: Antegrade Left Vertebral: Antegrade Rhythm: Normal DREDGE HAND NOTES: Mild atherosclerotic plaque. No significant stenosis seen IMPRESSION: Right: Less than 50% stenosis of the carotid bifurcation. Normal (no stenosis)=ICA PSV < 125 cm/s: ra pratibha < 2.0: ICA EDV<40 cm/s. Left: Less than 50% stenosis of the carotid bifurcation. Normal (no stenosis)=ICA PSV < 125 cm/s: rat io < 2.0: ICA EDV<40 cm/s. Criteria for Assigning % of Stenosis / Diameter reduction (Estimation based on the indirect measurements of the internal carotid artery velocities (ICA PSV). 1. Normal (no stenosis)=ICA PSV < 125 cm/s: ratio < 2.0: ICA EDV<40 cm/s. 2. Less than 50% stenosis=ICA PSV < 125 cm/s: ratio < 2.0: ICA EDV<40 cm/s. 3. 50 to 69% stenosis=ICA PSV of 125 to 230 cm/s: ration 2.0 ? 4.0: ICA EDV 40-100 cm/s. 4. Greater than 70% stenosis to near occlusion= ICA PSV > 230 cm/s: ratio > 4.0: ICA EDV > 100 cm/s. 5. Near occlusion= ICA PSV velocities may be low or undetectable: variable ratio and ICA EDV. 6. Total occlusion=unable to detect flow. [facility], , 05/27/2024 1:46 PM
--- NOTE | 2024-05-27 13:49 | US ---
EXAMINATION TYPE: Pre-Operative Non-Invasive Evaluation of the hand for Potential Radial Artery William chaney, Measurements only DATE OF EXAM: 05/27/2024 1:30 PM CLINICAL INDICATION: Male, 59 years old with history of measurements only; Open heart, Preop- Cardiac Surgery TECHNIQUE:Grayscale and color Doppler imaging of the radial artery(s) SIDE PERFORMED: Left FINDINGS: Dominant hand: Right Duplex Findings: Radial Artery: Color flow seen Measurements in mm, transverse view: Left Radial Proximal: 4.2 x 2.6 mm Mid: 2.6 x 2.3 mm Distal: 2.0 x 1.8 mm IMPRESSION: 1. No evidence for vascular occlusion. 2. Measurements as described above. [facility], , 05/27/2024 1:47 PM
--- NOTE | 2024-05-27 13:50 | US ---
EXAMINATION TYPE: US vein mapping BILAT DATE OF EXAM: 05/27/2024 1:30 PM COMPARISON: NONE CLINICAL INDICATION: Male, 59 years old with history of preop cardiac surgery; Open heart, Preop- Car diac Surgery TECHNIQUE: Grayscale and color Doppler imaging of the lower extremity venous system. SIDE PERFORMED: FINDINGS: PATIENT HISTORY: Smoker: no Heart Disease: yes Previous DVT: no Vascular Surgery: no Discoloration: no Hypertension: yes Paralysis: no Varicosities: no Edema: no DUPLEX FINDINGS: Greater Saphenous: Color flow seen Lesser Saphenous: Color flow seen Measurements in mm: Right Greater Saphenous: Groin: 8.3 x 4.4 mm High Thigh: 4.1 x 3.4 mm Mid Thigh: 3.3 x 2.6 mm Above Knee: 3.8 x 2.4 mm Knee: 2.9 x 2.3 mm Below Knee: 3.2 x 2.6 mm Mid Calf: 2.6 x 1.7 mm At Ankle: 4.1 x 2.7 mm Left Greater Saphenous: Groin: 8.3 x 7.9 mm High Thigh: 2.6 x 3.2 mm Mid Thigh: 2.3 x 1.6 mm Above Knee: 3.3 x 2.6 mm Knee: 3.4 x 2.8 mm Below Knee: 1.5 x 2.6 mm Mid Calf: 2.7 x 2.6 mm At Ankle: 4.7 x 2.5 mm IMPRESSION: 1. No evidence for occlusion. 2. GSV measurements listed above. 3. Performing surgeon to determine viability as conduit. [facility], , 05/27/2024 1:48 PM
--- NOTE | 2024-05-27 14:58 | CT ---
EXAMINATION TYPE: CT chest wo con DATE OF EXAM: 05/27/2024 2:46 PM COMPARISON none CLINICAL INDICATION: Male, 59 years old with history of eval aorta for calcification; presurgical abisai luation for heart surgery. TECHNIQUE: Multiple axial images were obtained through the chest. Sagittal and coronal reformats were created for review. MIP was performed on a separate workstation. Contrast used: mL of (None if empty) Oral contrast used: (None if empty) CT DLP: 588.2 mGycm, Automated exposure control for dose reduction was used. FINDINGS: LUNGS/ PLEURA: No focal consolidation, pneumothorax or pleural effusion. AIRWAY: Patent and unremarkable. HEART: The heart is mildly enlarged for size. Mild coronary artery atherosclerosis. MEDIASTINUM: No g ross evidence of adenopathy. VASCULATURE: No aortic aneurysm. Scattered calcified medications are seen throughout the aorta worse right after the origins of the great vessels with moderate calcification. There is aortic valve calc ifications also present. MUSCULOSKELETAL: No acute osseous abnormalities SOFT TISSUES/LYMPH NODES: Unremarkable. LOWER NECK: No significant findings. UPPER ABDOMEN: High density within the renal sinuses possibly representing excreted IV contrast from prior exam or calcification formation. IMPRESSION: 1. Moderate amount of calcifications along the aortic arch worse just past the origins of the major vessels. 2. Moderate coronary artery calcifications. 3. Moderate aortic valve consultations. Follow up recommendations for incidental pulmonary nodules, if there are any, are per [employer] or [employer]. https://radiopaedia.org/articles/jebucqnmpu-uvcnbqw-zeuteluds-riwyev-[email or web address]-[email or web address]?lang=us [facility], , 05/27/2024 2:55 PM
[2024-05-27] MEDS: HEPARIN SOD,PORK IN 0.45% NACL 25,000 UNIT in 0.45% NACL 1 250ML.BAG IV SCH (15:17)
--- NOTE | 2024-05-27 16:09 | P.PN ---
Subjective Progress Note Date: 05/27/24 Hospital course: Patient is a 59-year-old male with history of type 2 diabetes, hyperlipidemia and hypertension came to the ER after he had a abnormal stress test at cardiology office earlier today. Patient denies uses of illicit drugs and is a chronic non-smoker. Lab evaluation in the ER shows WBC of 7.9, hemoglobin 16.2, MCV 86.1, platelet count 136, sodium 142, potassium 4.3, chloride 108, bicarb 22, BUN 13, creatinine 1.24, EGFR 73, glucose 108, HbA1c 6.7, calcium 9.5, cholesterol 220, LDL 147, HDL 36.3. Chest x-ray interpreted independently shows no acute cardiopulmonary process. EKG interpreted independently shows sinus rhythm with normal QRS and QTc. Poor R wave progression. Diagnosed with multivessel CAD on coronary angiogram. CABG scheduled for tomorrow Subjective: Patient seen and examined at the bedside. No acute events overnight. Patient is not complaining of any chest pain at this time. All Systems reviewed and pertinent positives and negatives noted in HPI, all other symptoms are negative Objective: Vital signs reviewed. General: non toxic, no distress, appears at stated age, normal weight Derm: no unusual rashes/lesions, warm Head: atraumatic, normocephalic, symmetric Eyes: EOMI, no lid lag, anicteric sclera, pupils equal round reactive to light ENT: Nose and ears atraumatic Neck: No cervical lymphadenopathy, trachea midline, supple Mouth: no lip lesion, mucus membranes moist Cardiovascular: S1S2 reg, no murmur, positive dorsalis pedis pulse bilateral, no edema Lungs: CTA bilateral, no rhonchi, no rales, no accessory muscle use Abdominal: soft, nontender to palpation, no guarding Ext: muscle strength 5 out of 5 in all 4 extremities grossly, no gross muscle atrophy, no contractures, Neuro: CN II-XI grossly intact, no gross focal neuro deficits Psych: Alert, oriented, appropriate affect Data reviewed today: Labs: Troponin less than 0.012, WBC 5.9, hemoglobin 13.1, platelet count 146, sodium 140, potassium 4.0, creatinine 1.1, HbA1c 6.6, TSH 3.32 Images: CT chest shows ossification along the aortic arch coronary calcifications and moderate aortic calcifications Carotid Doppler ultrasound is negative for bilateral carotid stenosis. Assessment and Plan: 59-year-old male with history of type 2 diabetes, hyperlipidemia, and hypertension initially came to the ER with a abnormal stress test done outpatient cardiology. Patient is admitted for unstable angina with cardiac catheterization showing multivessel CAD. Open heart surgery scheduled for tomorrow. #Abnormal stress test #Unstable angina #Multivessel CAD Troponins trend negative Aspirin 81 mg p.o. daily Lipitor 80 mg p.o. at bedtime Heparin drip Cardiology consulted, note reviewed, multivessel CAD on coronary angiogram, CABG scheduled for tomorrow Nitro sublingual tablets Lipids: Triglyceride 181, cholesterol 240, LDL 147, HDL 36, TSH 3.32 Echocardiogram shows LVEF of 55 to 60% with normal LV function Heart healthy diet and n.p.o. after midnight Continue cardiac monitoring CBC and BMP tomorrow Chronic condition: Hypertension: Resume Norvasc 10 mg p.o. daily Type 2 diabetes: Hold Ozempic Gout: Hold colchicine, Pepcid statin: Probenecid DVT prophylaxis: Heparin The patient is admitted with an anticipated less than 2 midnight stay for eval uation of abnormal stress test CODE STATUS: Full code Discussed with: Patient Anticipated discharge place: Home I saw and evaluated the patient during the manriquez and critical portions of this encounter, and discussed the case in detail with the resident author of this note, I agree with the Assessment and Plan, and my changes, if any, are highlighted in blue. Objective - Vital Signs Vital signs: Vital Signs Temp 97.8 F 05/27/24 11:00 Pulse 67 05/27/24 11:45 Resp 17 05/27/24 11:45 BP 134/84 05/27/24 11:45 Pulse Ox 99 05/27/24 11:45 FiO2 Intake & Output 05/26/24 05/27/24 05/27/24 18:59 06:59 18:59 Intake Total 50 Balance 50 Weight 108.862 kg Intake: IV 50 Other: # Voids 2 - Labs CBC & Chem 7: 05/27/24 04:43 05/27/24 04:43 Labs: Abnormal Lab Results - Last 24 Hours (Table) 05/27/24 05/27/24 Range/Units 04:43 04:43 Carbon Dioxide 20.8 L (21.6-31.8) mmol/L BUN/Creatinine Ratio 11.91 L (12.00-20.00) Ratio Hemoglobin A1c 6.6 H (<=6.0) %
--- NOTE | 2024-05-27 17:02 | US ---
EXAMINATION TYPE: US arterial LE single level DATE OF EXAM: 05/27/2024 4:45 PM COMPARISONS: None. CLINICAL INDICATION: Male, 59 years old with history of Ankle Brachial Index (OWEN); OWEN TECHNIQUE: Systolic pressures were taken of the upper and lower extremity arteries with ankle-brachia l indices and toe brachial indices calculated bilaterally. History of: Smoker: No Hypertension: Yes Diabetic: No Hyperlipidemia: Yes TIA/CVA: No Previous Vascular Surgery: No CAD: No TN: No Vascular Ulcers: No Claudication: No Gangrene: No FINDINGS: Brachial Artery systolic pressure: Right: deferred due to heart cath Left: 139 Posterior Tibial artery systolic pressure: Right: 168 Left: 165 Dorsalis Pedis artery systolic pressure: Right: 163 Left: 154 Ankle-Brachial Indices: Right: 1.21 Left: 1.19 (Vessel hardening > 1.4; Normal 0.9 - 1.4, Moderate 0.7 - 0.9, Severe 0.5-0.7) IMPRESSION: Normal ankle-brachial brachial indices bilaterally. [facility], Workstation: [facility], 05/27/2024 4:59 PM
[2024-05-27 17:41] LABS: Glucose,Whole Blood 113 mg/dL (70-110)
[2024-05-27] MEDS: INSULIN ASPART (NovoLOG) 100 UNIT/ML VIAL SQ SCH (18:02)
[2024-05-27 20:06] LABS: Glucose,Whole Blood 99 mg/dL (70-110)
[2024-05-28 05:18] LABS: Partial Thromboplastin Time 48.1 sec (22.0-30.0); Prothrombin Time 11.1 sec (10.0-12.5)
[2024-05-28 05:44] LABS: Glucose,Whole Blood 103 mg/dL (70-110)
[2024-05-28] MEDS: ISOSORBIDE MONONITRATE ER 30 MG TAB.ER.24H PO SCH (08:18)
[2024-05-28 08:45] LABS: ALT 30 U/L (10-49); AST 27 U/L (14-35); Albumin 4.2 g/dL (3.8-4.9); Albumin/Globulin Ratio 1.75 Ratio (1.60-3.17); Alkaline Phosphatase 82 U/L (41-126); BUN/Creat Ratio 8.69 Ratio (12.00-20.00); Blood Urea Nitrogen 11.3 mg/dL (9.0-27.0); Calcium 9.1 mg/dL (8.7-10.3); Chloride 106 mmol/L (96-109); Globulin 2.4 g/dL (1.6-3.3); Glucose 98 mg/dL (70-110); Potassium 3.9 mmol/L (3.5-5.5); Sodium 141 mmol/L (135-145); Total Bilirubin 0.6 mg/dL (0.3-1.2); Total Protein 6.6 g/dL (6.2-8.2)
[2024-05-28 08:48] LABS: Basophils # (A) 0.04 X 10*3/uL (0.00-0.10); Basophils % (A) 0.7 %; Eosinophils # (A) 0.13 X 10*3/uL (0.04-0.35); Eosinophils % (A) 2.2 %; HCT 44.2 % (39.6-50.0); HGB 15.3 g/dL (13.0-17.0); Lymphocytes # (A) 2.02 X 10*3/uL (0.90-5.00); Lymphocytes % (A) 33.5 %; MCH 29.4 pg (27.0-32.0); MCHC 34.6 g/dL (32.0-37.0); MCV 84.8 FL (80.0-97.0); Mean Platelet Volume 11.4 FL (9.5-12.2); Monocytes # (A) 0.45 X 10*3/uL (0.20-1.00); Monocytes % (A) 7.5 %; NRBC Per 100 WBC 0 X 10*3/uL (0.00-0.01); Neutrophils # (A) 3.36 X 10*3/uL (1.80-7.70); Neutrophils % (A) 55.6 %; Platelet Count 136 X 10*3/uL (140-440); RBC 5.21 X 10*6/uL (4.40-5.60); RDW 12.4 % (11.5-14.5); WBC 6.03 X 10*3/uL (4.50-10.00)
[2024-05-28 08:57] LABS: Hepatitis A Antibody IgM Nonreactive (Nonreactive); Hepatitis B Core IgM Nonreactive (Nonreactive); Hepatitis B Surface Antigen Nonreactive (Nonreactive); Hepatitis C IgG Antibody Nonreactive (Nonreactive)
--- NOTE | 2024-05-28 09:29 | P.PN ---
Subjective Progress Note Date: 05/28/24 Principal diagnosis: Two vessel and left main coronary artery disease with exertional SOB as anginal equivalent. History of hypertension, hyperlipidemia, borderline diabetes, obes ity, lifelong non-smoker, family history of premature coronary artery disease The patient was seen and examined sitting up in bed on the observation unit in no acute distress. Denies any chest pain or shortness of breath at this time. Remains in sinus rhythm, hemodynamically stable. The patient was seen yesterday by Dr. Marie, our recommendation for open heart surgery was discussed in detail with the patient and his family, the patient is agreeable. Our plan is for surgical myocardial revascularization tomorrow, May 29, [address] Bloom. The patient will be n.p.o. after midnight. STS risk score was calculated and discussed with the patient, he is considered to be low risk. No other new concerns. Objective - Vital Signs Vital signs: Vital Signs Temp 98.0 F 05/28/24 02:00 Pulse 57 L 05/28/24 02:00 Resp 16 05/28/24 02:00 BP 118/73 05/28/24 02:00 Pulse Ox 97 05/28/24 02:00 FiO2 Intake & Output 05/27/24 05/28/24 05/28/24 18:59 06:59 18:59 Intake Total 70.5 120.167 Balance 70.5 120.167 Intake: IV 50 Intake, IV Titration 20.5 120.167 Amount Heparin Sod,Pork in 0.45% 20.5 120.167 NaCl 25,000 unit In 0.45 % NaCl 1 250ml.bag @ 9. 186 UNITS/KG/HR 10 mls/hr IV .Q24H [facility] Rx#: [id number] Other: # Voids 3 2 # Bowel Movements 1 - Exam CONSTITUTIONAL: Appears comfortable, cooperative, no acute distress RESPIRATORY: Lungs sounds diminished bilaterally. Respirations even, nonlabored. Currently on room air with oxygen saturation 97%. Able to achieve 3000 mL on incentive spirometry. Strong cough. CARDIOVASCULAR: S1, S2 present. Regular rate and rhythm, sinus rhythm on telemetry. Palpable peripheral pulses bilaterally. No edema present. No calf pain or tenderness noted GASTROINTESTINAL: Abdomen soft, nontender, nondistended. Active bowel sounds present 4 quadrants. Tolerating diet. Positive bowel movement 05/28 GENITOURINARY: Continues to void INTEGUMENTARY: Skin is warm and dry NEUROLOGIC: Cranial nerves II through XII intact MUSKULOSKELETAL: Able to move all extremities, strength equal bilaterally, gait normal PSYCHIATRIC: Alert and oriented to person place and time, appropriate affect, intact judgment and insight - Allied health notes Allied health notes reviewed: nursing - Labs CBC & Chem 7: 05/28/24 04:27 05/28/24 04:27 Labs: Abnormal Lab Results - Last 24 Hours (Table) 05/27/24 05/27/24 05/27/24 Range/Units 04:43 04:43 16:33 APTT 56.4 H (22.0-30.0) sec Carbon Dioxide 20.8 L (21.6-31.8) mmol/L BUN/Creatinine Ratio 11.91 L (12.00-20.00) Ratio POC Glucose (mg/dL) (70-110) mg/dL Hemoglobin A1c 6.6 H (<=6.0) % 05/27/24 05/28/24 Range/Units 17:40 04:27 APTT 48.1 H (22.0-30.0) sec Carbon Dioxide (21.6-31.8) mmol/L BUN/Creatinine Ratio (12.00-20.00) Ratio POC Glucose (mg/dL) 113 H (70-110) mg/dL Hemoglobin A1c (<=6.0) % Assessment and Plan Assessment: Two-vessel and left main coronary artery disease with exertional SOB as anginal equivalent. History of hypertension Hyperlipidemia, cholesterol 220, LDL 148, triglycerides 181 Borderline diabetes, hemoglobin A1c 6.6% Obesity Lifelong non-smoker, preoperative FEV1 97% of predicted Family history of premature coronary artery disease Plan: Continue to maximize medical therapy with aspirin, statin, beta-cristina. IV heparin per cardiology, needs to be discontinued at 5 am 05/29/24 Increase activity, ambulate as tolerated Encourage incentive spirometry use Pulmonology consulted for clearance Our plan is for myocardial revascularization with left internal mammary artery and endoscopic harvest of the left radial artery, ligation of the left atrial appendage on May 29, [address] Bloom N.p.o. after midnight 5 meter walk test completed without difficulty, #1 3.82 sec, #2 3.33 sec, #3 3.43 sec Medical management of other comorbidities per internal medicine More recommendations to follow
--- NOTE | 2024-05-28 09:39 | P.PN ---
Subjective HISTORY OF PRESENT ILLNESS: This is a 59-year-old male with a past medical history significant for hypertension, hyperlipidemia, and diabetes. Patient does not follow with a reception manager. Patient initially presented to the hospital this morning for an outpatient stress test. Patient states he has been having shortness of breath with exertion for approximately 2 months. Patient exercised for approximately 7 minutes on the treadmill. He was unable to reach his target heart rate due to significant shortness of breath. Patient did appear slightly ashen in color at that time. He denied having any chest pain. He did report having maybe some vague chest tightness. EKG at that time revealed ST elevation in aVR and ST depressions in inferior lateral leads. Patient's EKG changes did resolve with rest. Recommendation was made for hospital admission with cardiac catheterization to be performed tomorrow. The patient is agreeable. He is a non-smoker. He reports a family history of heart disease. He states his dad had issues with his heart valves but does not think he had any problems with heart blockages. DIAGNOSTICS: - EKG reveals this mechanism with no signs of acute ischemia. - Laboratory data: WBC 7.9. Hemoglobin 16.2. Platelet count 156. Sodium 142. Potassium 4.3. BUN 13. Creatinine 1.24. - Current home cardiac medications include metoprolol tartrate 100 mg twice a day and amlodipine 10 mg daily 05/28/2024 Patient is status post cardiac catheterization revealing two-vessel coronary artery disease involving ostial circumflex and LAD with distal left main stenosis. Patient examined this morning at the bedside. Patient currently denies chest pain or pressure. He denies shortness of breath. He remains on IV heparin. Vital signs are stable. Telemetry reveals sinus mechanism. Plan is for CABG tomorrow with Dr. Bloom. Echocardiogram completed revealing ejection fraction 55 to 60%. PHYSICAL EXAM: VITAL SIGNS: Reviewed. GENERAL: Well-developed in no acute distress. HEENT: Head is normocephalic. Pupils are equal, round. Sclerae anicteric. Mucous membranes of the mouth are moist. Neck supple. No JVD or thyromegaly LUNGS: Respirations even and unlabored. Lungs essentially clear to auscultation bilaterally. HEART: Regular rate and rhythm. S1 and S2 heard. ABDOMEN: Soft. Nondistended. Nontender. EXTREMITIES: Normal range of motion. No clubbing or cyanosis. Peripheral pulses intact. No lower extremity edema NEUROLOGIC: Awake and alert. Oriented x 3. ASSESSMENT: Exertional shortness of breath x 2 months Abnormal stress test with ST elevation in aVR and ST depression in inferior lateral leads, status post cardiac catheterization revealing two-vessel coronary artery disease and left main disease Hypertension Hyperlipidemia Diabetes Obesity: BMI 34.4 PLAN: Continue current cardiac medications Continue IV heparin Add Imdur 30 mg daily Patient is scheduled to undergo CABG tomorrow with Dr. Bloom Further recommendations pending patient course Nurse practitioner note has been reviewed by physician. Signing provider agrees with the documented findings, assessment, and plan of care documented by MARINE PIPEFITTER as a scribe. Objective - Vital Signs Vital signs: Vital Signs Temp 98 F 05/28/24 08:00 Pulse 65 05/28/24 08:00 Resp 15 05/28/24 08:00 BP 143/89 05/28/24 08:00 Pulse Ox 98 05/28/24 08:00 FiO2 Intake & Output 05/27/24 05/28/24 05/28/24 18:59 06:59 18:59 Intake Total 70.5 120.167 118 Balance 70.5 120.167 118 Intake: IV 50 Intake, IV Titration 20.5 120.167 Amount Heparin Sod,Pork in 0.45% 20.5 120.167 NaCl 25,000 unit In 0.45 % NaCl 1 250ml.bag @ 9. 186 UNITS/KG/HR 10 mls/hr IV .Q24H [facility] Rx#: [id number] Oral 118 Other: # Voids 3 2 # Bowel Movements 1 - Labs CBC & Chem 7: 05/28/24 04:27 05/28/24 04:27 Labs: Abnormal Lab Results - Last 24 Hours (Table) 05/27/24 05/27/24 05/28/24 Range/Units 16:33 17:40 04:27 Plt Count 136 L (140-440) X 10*3/uL APTT 56.4 H (22.0-30.0) sec BUN/Creatinine Ratio (12.00-20.00) Ratio POC Glucose (mg/dL) 113 H (70-110) mg/dL 05/28/24 05/28/24 Range/Units 04:27 04:27 Plt Count (140-440) X 10*3/uL APTT 48.1 H (22.0-30.0) sec BUN/Creatinine Ratio 8.69 L (12.00-20.00) Ratio POC Glucose (mg/dL) (70-110) mg/dL
[2024-05-28] MEDS: MUPIROCIN 2% OINT 22 GM TUBE NASAL SCH (11:20)
[2024-05-28 12:18] LABS: Glucose,Whole Blood 120 mg/dL (70-110)
--- NOTE | 2024-05-28 14:50 | P.CNPUL ---
History of Present Illness Consult date: 05/28/24 Chief complaint: CAD History of present illness: This is a 59-year-old male patient, with an abnormal stress test involving the inferolateral leads and the patient underwent a cardiac catheterization the patient was found to have triple-vessel coronary artery disease. LV function is preserved with an ejection fraction of 55 to 60% with mild mitral and trace tricuspid regurgitation. He is known to have hypertension hyperlipidemia and borderline diabetes mellitus. He is a non-smoker and is morbidly obese. His body mass index is 34.4. The patient is scheduled to undergo a coronary artery bypass surgery in a.m. His CAT scan of the chest was completed on 05/27/2024 and the patient has moderate amount of calcification of the aortic arch. Moderate coronary artery calcification. Moderate aortic valve calcification. No evidence of any focal consolidation pneumothorax or pulmonary nodules. The patient's pulse ox currently is 98% on room air oxygen. He is hemodynamically stable. His labs was reviewed and the WBC count is at 6 with a hemoglobin 15.3, platelet count is at 136, BUN is 11 with a creatinine of 1.3 and a sodium level is 141. GFR is currently at 62. Normal LFTs. Denies having any chest pain. Carotid Doppler showed mild atherosclerotic plaques, no hemodynamically significant stenosis. Review of Systems Constitutional: Reports as per HPI Eyes: denies as per HPI, denies blurred vision, denies bulging eye, denies decreased vision, denies diplopia, denies discharge, denies dry eye, denies irritation, denies itching, denies pain, denies photophobia, denies loss of peripheral vision, denies loss of vision, denies tunnel vision/blind spots Ears: deny: decreased hearing, ear discharge, earache, tinnitus Ears, nose, mouth and throat: Reports as per HPI Breasts: absent: as per HPI, gynecomastia Cardiovascular: Reports as per HPI Respiratory: Reports as per HPI Gastrointestinal: Reports as per HPI Genitourinary: Reports as per HPI Musculoskeletal: Reports as per HPI Musculoskeletal: absent: ankle pain, ankle stiffness, ankle swelling, as per HPI, elbow pain, elbow stiffness, elbow swelling, foot pain, foot stiffness, foot swelling, hand pain, hand stiffness, hand swelling, hip pain, hip stiffness, hip swelling, knee pain, knee stiffness, knee swelling, shoulder pain, shoulder stiffness, shoulder swelling, wrist pain, wrist stiffness, wrist swelling Integumentary: Reports as per HPI Neurological: Reports as per HPI Psychiatric: Reports as per HPI Endocrine: Reports as per HPI Hematologic/Lymphatic: Reports as per HPI Allergic/Immunologic: Reports as per HPI Past Medical History Past Medical History: Coronary Artery Disease (CAD), Diabetes Mellitus, Hyperlipidemia, Hypertension History of Any Multi-Drug Resistant Organisms: None Reported Past Surgical History: Orthopedic Surgery Additional Past Surgical History / Comment(s): bilateral knee surgery, Past Anesthesia/Blood Transfusion Reactions: No Reported Reaction Past Psychological History: No Psychological Hx Reported Smoking Status: Never smoker Past Alcohol Use History: Occasional Past Drug Use History: None Reported - Past Family History Father Family Medical History: Myocardial Infarction (PR) Additional Family Medical History / Comment(s): Grandfather diagnosed with early coronary artery disease Mother Family Medical History: Dementia, Myocardial Infarction (PR) Medications and Allergies Home Medications Medication Instructions Recorded Confirmed Type Colchicine 0.6 mg PO BID PRN 05/26/24 05/26/24 History Febuxostat [Uloric] 80 mg PO DAILY 05/26/24 05/26/24 History HYDROcodone/APAP 10-325MG [[place] 1 tab PO TID 05/26/24 05/26/24 History 10-325] Metoprolol Tartrate [Lopressor] 100 mg PO BID 05/26/24 05/26/24 History Probenecid [Benemid] 500 mg PO BID 05/26/24 05/26/24 History Semaglutide [Ozempic] 0.5 mg SQ MO 05/26/24 05/26/24 History amLODIPine [Norvasc] 10 mg PO DAILY 05/26/24 05/26/24 History Allergies Allergy/AdvReac Type Severity Reaction Status Date / Time No Known Allergies Allergy Verified 05/26/24 12:19 Physical Exam Vitals: Vital Signs Temp Pulse Pulse Resp BP BP Pulse Ox 05/28/24 08:00 98 F 65 15 143/89 98 05/28/24 02:00 98.0 F 57 L 16 118/73 97 05/27/24 20:00 98.4 F 69 18 175/98 96 05/27/24 14:45 63 16 138/82 98 05/27/24 13:45 65 16 142/83 97 Intake and Output 05/27/24 05/28/24 05/28/24 22:59 06:59 14:59 Intake Total 20.5 120.167 118 Balance 20.5 120.167 118 Intake: Intake, IV Titration 20.5 120.167 Amount Heparin Sod,Pork in 0.45% 20.5 120.167 NaCl 25,000 unit In 0.45 % NaCl 1 250ml.bag @ 9. 186 UNITS/KG/HR 10 mls/hr IV .Q24H [facility] Rx#: [id number] Oral 118 Other: # Voids 1 2 The patient appeared well nourished and normally developed. Vital signs as documented. Head exam is unremarkable. No scleral icterus or corneal arcus noted. Neck is without jugular venous distension, thyromegaly, or carotid bruits. Carotid upstrokes are brisk bilaterally. Lungs are clear to auscultation and percussion. Cardiac exam reveals the PMI to be normally sized and situated. Rhythm is regul ar. First and second heart sounds normal. No murmurs, rubs or gallops. Abdominal exam reveals normal bowel sounds, no masses, no organomegaly and no aortic enlargement. Extremities are nonedematous and both femoral and pedal pulses are normal. Examination of the skin revealed no evidence of significant rashes, suspicious appearing nevi or other concerning lesions. Neurologically, the patient is awake and alert and the patient does not have any focal neurological deficit. Cranial nerves are essentially intact. Results - Laboratory Findings CBC and BMP: 05/28/24 04:27 05/28/24 04:27 PT/INR, D-dimer PT 11.1 sec (10.0-12.5) 05/28/24 04:27 INR 1.0 (<1.2) 05/28/24 04:27 Abnormal lab findings: Abnormal Labs 05/26/24 05/26/24 05/26/24 11:09 11:09 11:09 Plt Count APTT Chloride 108 H Carbon Dioxide BUN/Creatinine Ratio Glucose 108 H POC Glucose (mg/dL) Hemoglobin A1c 6.7 H Triglycerides 181.00 H Cholesterol 220.00 H LDL Cholesterol, Calc 147.5 H HDL Cholesterol 36.30 L Crossmatch 05/27/24 05/27/24 05/27/24 04:43 04:43 16:33 Plt Count APTT 56.4 H Chloride Carbon Dioxide 20.8 L BUN/Creatinine Ratio 11.91 L Glucose POC Glucose (mg/dL) Hemoglobin A1c 6.6 H Triglycerides Cholesterol LDL Cholesterol, Calc HDL Cholesterol Crossmatch 05/27/24 05/28/24 05/28/24 17:40 04:27 04:27 Plt Count 136 L APTT 48.1 H Chloride Carbon Dioxide BUN/Creatinine Ratio Glucose POC Glucose (mg/dL) 113 H Hemoglobin A1c Triglycerides Cholesterol LDL Cholesterol, Calc HDL Cholesterol Crossmatch 05/28/24 05/28/24 05/28/24 04:27 09:56 12:17 Plt Count APTT Chloride Carbon Dioxide BUN/Creatinine Ratio 8.69 L Glucose POC Glucose (mg/dL) 120 H Hemoglobin A1c Triglycerides Cholesterol LDL Cholesterol, Calc HDL Cholesterol Crossmatch See Detail - Diagnostic Findings CT scan - chest: image reviewed Assessment and Plan Plan: Symptomatic multivessel coronary artery disease. Cardiac catheterization done 05/27/2024 showed two-vessel coronary artery disease including ostial circumflex and LAD with distal left main stenosis. The patient is scheduled to undergo coronary bypass surgery in a.m. Hemodynamically stable. Echocardiogram preoperatively showed a preserved LV function without any valvular abnormalities. CAT scan of the chest shows no acute pulmonary abnormalities. Spirometry was done and is essentially within normal limits. The patient's respiratory status is stable. Hemodynamically stable. Diabetes mellitus type 2 Hypertension Hyperlipidemia Osteoarthritis Obesity with a BMI of 34. Plan Proceed with coronary bypass surgery, scheduled for 05/29/2024. Will manage the ventilator and will attend for any pulmonary issues postop. Continue using incentive spirometer. Medication was reviewed. CAT scan of the chest was reviewed. Case was discussed with CT surgery.
--- NOTE | 2024-05-28 15:47 | P.PN ---
Subjective Progress Note Date: 05/28/24 Hospital course: Patient is a 59-year-old male with history of type 2 diabetes, hyperlipidemia and hypertension came to the ER after he had a abnormal stress test at cardiology office earlier today. Patient denies uses of illicit drugs and is a chronic non-smoker. Lab evaluation in the ER shows WBC of 7.9, hemoglobin 16.2, MCV 86.1, platelet count 136, sodium 142, potassium 4.3, chloride 108, bicarb 22 , BUN 13, creatinine 1.24, EGFR 73, glucose 108, HbA1c 6.7, calcium 9.5, cholesterol 220, LDL 147, HDL 36.3. Chest x-ray interpreted independently shows no acute cardiopulmonary process. EKG interpreted independently shows sinus rhythm with normal QRS and QTc. Poor R wave progression. Diagnosed with multivessel CAD on coronary angiogram. CABG scheduled for tomorrow Subjective: Patient seen and examined at the bedside. No acute events overnight. Patient is not complaining of any chest pain at this time. All Systems reviewed and pertinent positives and negatives noted in HPI, all other symptoms are negative Objective: Vital signs reviewed. General: non toxic, no distress, appears at stated age, normal weight Derm: no unusual rashes/lesions, warm Head: atraumatic, normocephalic, symmetric Eyes: EOMI, no lid lag, anicteric sclera, pupils equal round reactive to light ENT: Nose and ears atraumatic Neck: No cervical lymphadenopathy, trachea midline, supple Mouth: no lip lesion, mucus membranes moist Cardiovascular: S1S2 reg, no murmur, positive dorsalis pedis pulse bilateral, no edema Lungs: CTA bilateral, no rhonchi, no rales, no accessory muscle use Abdominal: soft, nontender to palpation, no guarding Ext: muscle strength 5 out of 5 in all 4 extremities grossly, no gross muscle atrophy, no contractures, Neuro: CN II-XI grossly intact, no gross focal neuro deficits Psych: Alert, oriented, appropriate affect Data reviewed today: Labs: WBC 6.03, hemoglobin 15.3, platelet count 136, sodium 141, potassium 3.9, creatinine 1.3 Images: No new imaging Assessment and Plan: 59-year-old male with history of type 2 diabetes, hyperlipidemia, and hypertension initially came to the ER with a abnormal stress test done outpatient cardiology. Patient is admitted for unstable angina with cardiac catheterization showing multivessel CAD. Open heart surgery scheduled for tomorrow. #Unstable angina #Multivessel CAD Troponins trend negative Aspirin 81 mg p.o. daily Lipitor 80 mg p.o. at bedtime Heparin drip, monitor APTT, monitor for bleeding Metoprolol 100 twice daily, Imdur 30 mg daily Cardiologynote reviewed, multivessel CAD on coronary angiogram Cardiothoracic surgery note reviewed, CABG scheduled for tomorrow Nitro sublingual tablets Lipids: Triglyceride 181, cholesterol 240, LDL 147, HDL 36, TSH 3.32 Echocardiogram shows LVEF of 55 to 60% with normal LV function Heart healthy diet and n.p.o. after midnight Continue cardiac monitoring CBC and BMP tomorrow #Type 2 diabetes HbA1c 6.6 Accu-Cheks and sliding scale insulin outpatient follow-up for type 2 diabetes Chronic condition: Hypertension: Resume Norvasc 10 mg p.o. daily Type 2 diabetes: Hold Ozempic Gout: Hold colchicine, Pepcid statin: Probenecid DVT prophylaxis: Heparin CODE STATUS: Full code Discussed with: Patient Anticipated discharge place: Home I have seen and evaluated the patient today. Discussed with the resident and agree with the residents finding and plan as documented in the resident's note. Changes highlighted in blue font. Objective - Vital Signs Vital signs: Vital Signs Temp 98.1 F 05/28/24 14:00 Pulse 66 05/28/24 14:00 Resp 15 05/28/24 14:00 BP 118/71 05/28/24 14:00 Pulse Ox 96 05/28/24 14:00 FiO2 Intake & Output 05/27/24 05/28/24 05/28/24 18:59 06:59 18:59 Intake Total 70.5 120.167 236 Balance 70.5 120.167 236 Weight 106.396 kg Intake: IV 50 Intake, IV Titration 20.5 120.167 Amount Heparin Sod,Pork in 0.45% 20.5 120.167 NaCl 25,000 unit In 0.45 % NaCl 1 250ml.bag @ 9. 186 UNITS/KG/HR 10 mls/hr IV .Q24H [facility] Rx#: [id number] Oral 236 Other: # Voids 3 2 3 # Bowel Movements 1 - Labs CBC & Chem 7: 05/28/24 04:27 05/28/24 04:27 Labs: Abnormal Lab Results - Last 24 Hours (Table) 05/27/24 05/27/24 05/28/24 Range/Units 16:33 17:40 04:27 Plt Count 136 L (140-440) X 10*3/uL APTT 56.4 H (22.0-30.0) sec BUN/Creatinine Ratio (12.00-20.00) Ratio POC Glucose (mg/dL) 113 H (70-110) mg/dL Crossmatch 05/28/24 05/28/24 05/28/24 Range/Units 04:27 04:27 09:56 Plt Count (140-440) X 10*3/uL APTT 48.1 H (22.0-30.0) sec BUN/Creatinine Ratio 8.69 L (12.00-20.00) Ratio POC Glucose (mg/dL) (70-110) mg/dL Crossmatch See Detail 05/28/24 Range/Units 12:17 Plt Count (140-440) X 10*3/uL APTT (22.0-30.0) sec BUN/Creatinine Ratio (12.00-20.00) Ratio POC Glucose (mg/dL) 120 H (70-110) mg/dL Crossmatch
[2024-05-28 20:33] LABS: Glucose,Whole Blood 136 mg/dL (70-110)
[2024-05-29] MEDS ORDERED: INSULIN REGULAR 100 UNIT in SODIUM CHLORIDE 0.9% 100 ML IV SCH (05:00)
[2024-05-29] MEDS ORDERED: NOREPINEPHRINE 4 MG in SODIUM CHLORIDE 0.9% 250 ML IV SCH (05:00)
[2024-05-29] MEDS: METOPROLOL TARTRATE 12.5 MG TAB PO ONE (05:05)
[2024-05-29] MEDS: ASPIRIN 325 MG TAB PO ONE (05:14)
[2024-05-29] MEDS: ATORVASTATIN 10 MG TAB PO ONE (05:14)
[2024-05-29 05:31] LABS: Glucose,Whole Blood 104 mg/dL (70-110)
[2024-05-29] MEDS ORDERED: LIDOCAINE 1% (10MG/ML) FOR IV START INTRADERMA PRN (05:43)
[2024-05-29 06:34] LABS: Glucose,Whole Blood 100 mg/dL (70-110)
[2024-05-29] MEDS: IV FLUID CONTINUATION 1,000 ML IV ONE (06:47)
[2024-05-29] MEDS ORDERED: fentaNYL (PF) 50 MCG/ML 2 ML AMP IVP PRN (07:00)
[2024-05-29] MEDS ORDERED: MIDAZOLAM 2 MG/2 ML VIAL IV PRN (07:00)
[2024-05-29] MEDS ORDERED: WATER FOR INJECTION, STERILE 10 ML VIAL IV ONE (07:34)
[2024-05-29] MEDS ORDERED: CALCIUM CHLORIDE 100 MG/ML 10 ML SYRINGE ONE (07:34)
[2024-05-29] MEDS ORDERED: HEPARIN SODIUM,PORCINE 10,000 UNIT/ML 1 ML VIAL ONE (07:34)
[2024-05-29] MEDS ORDERED: TRANEXAMIC 1,000 MG/100ML-NACL PREMIX BAG ONE (07:34)
[2024-05-29] MEDS ORDERED: PHENYLEPHRINE 10 MG/ML VIAL ONE (07:34)
[2024-05-29] MEDS ORDERED: LIDOCAINE 2% SYG (PF) 100 MG/5 ML ONE (07:34)
[2024-05-29] MEDS ORDERED: fentaNYL (PF) 50 MCG/ML 50 ML VIAL ONE (07:34)
[2024-05-29] MEDS ORDERED: NITROGLYCERIN-D5W PMX 50 MG/250 ML BOTTLE IV ONE (07:34)
[2024-05-29] MEDS ORDERED: HEPARIN SODIUM,PORCINE 5,000 UNIT/ML 1 ML VIAL ONE (07:34)
[2024-05-29] MEDS ORDERED: ePHEDrine 50 MG/ML 1 ML VIAL ONE (07:34)
[2024-05-29] MEDS ORDERED: PROTAMINE SULFATE 10 MG/ML 25 ML VIAL IV ONE (07:34)
[2024-05-29] MEDS ORDERED: MIDAZOLAM HCL 10 MG/10 ML VIAL ONE (07:34)
[2024-05-29] MEDS ORDERED: VECURONIUM 10 MG VIAL IV ONE (07:34)
[2024-05-29] MEDS ORDERED: PROPOFOL 10 MG/ML 20 ML VIAL IV ONE (07:34)
[2024-05-29] MEDS: SODIUM CHLORIDE 0.9% 50 ML with ceFAZolin 2,000 MG IV ONE (08:45)
[2024-05-29 09:03] LABS: ABG Base Excess -1.7 mmol/L; ABG Glucose Whole Blood 93 mg/dL (75-99); ABG HCO3 23 mmol/L (21-25); ABG Hematocrit 40 % (34.0-46.0); ABG Ionized Calcium 4.7 mg/dL (4.5-5.3); ABG Lactic Acid Whole Blood 0.9 mmol/L (0.5-1.6); ABG Oxygen Saturation 99.2 % (94-97); ABG PCO2 40 mmHg (35-45); ABG PH 7.37 (7.35-7.45); ABG PO2 291 mmHg (83-108); ABG Potassium Whole Blood 3.9 mmol/L (3.4-4.5); ABG Sodium Whole Blood 141 mmol/L (135-146); ABG TCO2 21 mmol/L (19-24)
[2024-05-29] MEDS: SODIUM CHLORIDE 0.9% 500 ML 500 ML with HEPARIN SODIUM,PORCINE (1 ML) 5,000 UNIT IV ONE (11:16)
[2024-05-29 11:17] LABS: ABG Base Excess -1.3 mmol/L; ABG Glucose Whole Blood 110 mg/dL (75-99); ABG HCO3 23 mmol/L (21-25); ABG Hematocrit 40 % (34.0-46.0); ABG Ionized Calcium 4.6 mg/dL (4.5-5.3); ABG Lactic Acid Whole Blood 0.7 mmol/L (0.5-1.6); ABG Oxygen Saturation 98.4 % (94-97); ABG PCO2 38 mmHg (35-45); ABG PH 7.39 (7.35-7.45); ABG PO2 127 mmHg (83-108); ABG Potassium Whole Blood 4.2 mmol/L (3.4-4.5); ABG Sodium Whole Blood 139 mmol/L (135-146); ABG TCO2 21 mmol/L (19-24); Allen Test Performed? Yes
[2024-05-29] MEDS: PAPAVERINE 360 MG in SODIUM CHLORIDE 0.9% 90 ML IV ONE (11:17)
[2024-05-29] MEDS: ceFAZolin 1,000 MG in SODIUM CHLORIDE 0.9% 1,000 ML IRRIGATION ONE (11:17)
[2024-05-29 12:19] LABS: ABG Base Excess -3.5 mmol/L; ABG Glucose Whole Blood 110 mg/dL (75-99); ABG HCO3 21 mmol/L (21-25); ABG Hematocrit 30 % (34.0-46.0); ABG Lactic Acid Whole Blood 0.8 mmol/L (0.5-1.6); ABG Oxygen Saturation 99.3 % (94-97); ABG PCO2 37 mmHg (35-45); ABG PH 7.37 (7.35-7.45); ABG PO2 378 mmHg (83-108); ABG Potassium Whole Blood 4.5 mmol/L (3.4-4.5); ABG Sodium Whole Blood 136 mmol/L (135-146); ABG TCO2 20 mmol/L (19-24); Allen Test Performed? Yes
[2024-05-29 12:50] LABS: ABG Base Excess -1.1 mmol/L; ABG Glucose Whole Blood 115 mg/dL (75-99); ABG HCO3 25 mmol/L (21-25); ABG Hematocrit 29 % (34.0-46.0); ABG Ionized Calcium 4.2 mg/dL (4.5-5.3); ABG Oxygen Saturation 98.6 % (94-97); ABG PCO2 46 mmHg (35-45); ABG PH 7.34 (7.35-7.45); ABG PO2 156 mmHg (83-108); ABG Potassium Whole Blood 4.8 mmol/L (3.4-4.5); ABG Sodium Whole Blood 139 mmol/L (135-146); ABG TCO2 24 mmol/L (19-24); Allen Test Performed? Yes
--- NOTE | 2024-05-29 13:03 | P.ANPRN ---
Procedure Note - Anesthesia - Invasive Line Right [place] Shlomo Time Out Performed: Yes Date of Procedure: 05/29/24 Location of Patient: PreOp Preparation: Sterile Prep, Sterile Dressing Central Line Location: Internal Jugular Ultrasound Used: No Purpose - Visualization and Identification of Vasculature: No Image Stored and Saved: No Narrative: Invasive line placement per sterile protocol utilized.
--- NOTE | 2024-05-29 13:03 | P.ANPRN ---
Procedure Note - Anesthesia - Invasive Line Right Central Line Time Out Performed: Yes Date of Procedure: 05/29/24 Time of Procedure: 07:29 Location of Patient: PreOp Preparation: Sterile Prep, Sterile Dressing Central Line Location: Internal Jugular Ultrasound Used: No Purpose - Visualization and Identification of Vasculature: No Image Stored and Saved: No Narrative: Invasive line placement per sterile protocol utilized.
[2024-05-29 13:27] LABS: ABG Base Excess -1.3 mmol/L; ABG Glucose Whole Blood 141 mg/dL (75-99); ABG HCO3 25 mmol/L (21-25); ABG Hematocrit 29 % (34.0-46.0); ABG Ionized Calcium 4.2 mg/dL (4.5-5.3); ABG Oxygen Saturation 99.2 % (94-97); ABG PCO2 45 mmHg (35-45); ABG PH 7.34 (7.35-7.45); ABG PO2 288 mmHg (83-108); ABG Potassium Whole Blood 4.9 mmol/L (3.4-4.5); ABG Sodium Whole Blood 139 mmol/L (135-146); ABG TCO2 23 mmol/L (19-24); Allen Test Performed? Yes
[2024-05-29 14:09] LABS: ABG Base Excess -2.7 mmol/L; ABG Glucose Whole Blood 125 mg/dL (75-99); ABG HCO3 24 mmol/L (21-25); ABG Hematocrit 29 % (34.0-46.0); ABG Ionized Calcium 4.2 mg/dL (4.5-5.3); ABG Lactic Acid Whole Blood 1.2 mmol/L (0.5-1.6); ABG Oxygen Saturation 99.1 % (94-97); ABG PCO2 51 mmHg (35-45); ABG PH 7.29 (7.35-7.45); ABG PO2 296 mmHg (83-108); ABG Potassium Whole Blood 4.5 mmol/L (3.4-4.5); ABG Sodium Whole Blood 140 mmol/L (135-146); ABG TCO2 23 mmol/L (19-24)
[2024-05-29 14:59] LABS: ABG Base Excess -2.2 mmol/L; ABG Glucose Whole Blood 111 mg/dL (75-99); ABG HCO3 24 mmol/L (21-25); ABG Hematocrit 31 % (34.0-46.0); ABG Oxygen Saturation 97.3 % (94-97); ABG PCO2 46 mmHg (35-45); ABG PH 7.33 (7.35-7.45); ABG PO2 89 mmHg (83-108); ABG Potassium Whole Blood 3.9 mmol/L (3.4-4.5); ABG Sodium Whole Blood 141 mmol/L (135-146); ABG TCO2 23 mmol/L (19-24)
[2024-05-29 15:13] LABS: ABG Ionized Calcium 4.5 mg/dL (4.5-5.3); ABG Lactic Acid Whole Blood 1.5 mmol/L (0.5-1.6)
[2024-05-29] MEDS ORDERED: AMIODARONE 360 MG in DEXTROSE 5% IN WATER 200 ML IV PRN (15:34)
[2024-05-29] MEDS ORDERED: Potassium Replacement Protocol 1 EACH MISC MISCELLANE PRN (15:34)
[2024-05-29] MEDS ORDERED: Magnesium Replacement Protocol 1 EACH MISC MISCELLANE PRN (15:34)
[2024-05-29] MEDS ORDERED: DEXMEDETOMIDINE/0.9% NACL(PMX) 400 MCG in EMPTY BAG 1 BAG IV SCH (15:34)
[2024-05-29] MEDS ORDERED: ONDANSETRON 4 MG/2 ML VIAL IVP PRN (15:34)
[2024-05-29] MEDS ORDERED: AMIODARONE 450 MG in DEXTROSE 5% IN WATER 250 ML IV PRN (15:34)
[2024-05-29] MEDS ORDERED: DEXTROSE 50% SYRINGE 50 ML IVP PRN ×2 (15:34)
[2024-05-29] MEDS ORDERED: IPRATROPIUM-ALBUTEROL 3 ML NEB INHALATION PRN (15:34)
[2024-05-29] MEDS ORDERED: METOCLOPRAMIDE 5 MG/ML 2 ML VIAL IVP PRN (15:34)
[2024-05-29] MEDS ORDERED: DEXTROSE 5% IN WATER 100 ML with AMIODARONE 150 MG IV PRN (15:34)
[2024-05-29 15:38] LABS: Glucose,Whole Blood 95 mg/dL (70-110)
[2024-05-29 16:06] LABS: ABG Base Excess -1.3 mmol/L; ABG HCO3 26 mmol/L (21-25); ABG Oxygen Saturation 99.8 % (94-97); ABG PCO2 51 mmHg (35-45); ABG PH 7.31 (7.35-7.45); ABG PO2 209 mmHg (83-108); ABG TCO2 27 mmol/L (19-24)
--- NOTE | 2024-05-29 16:10 | XR ---
EXAMINATION TYPE: XR chest 1V portable DATE OF EXAM: 05/29/2024 4:02 PM COMPARISON: 05/26/2024 CLINICAL INDICATION: Male, 59 years old with history of Post Operative Cardiac Surgery, TECHNIQUE: XR chest 1V portable view(s) obtained. FINDINGS: The heart size is normal. The pulmonary vasculature is normal. The lungs are clear. Left-sided chest tube is present. Mediastinal tubes are present. [place]-Shlomo catheter tip is in the reg ion of the main pulmonary artery. Nasogastric tube transverses the thorax with tip in left upper quadrant of the abdomen. Endotracheal tube tip is 3.3 cm above the adrian. IMPRESSION: 1. No acute pulmonary process. 2. Lines and catheters discussed above [facility], , 05/29/2024 4:07 PM
--- NOTE | 2024-05-29 16:13 | P.PN ---
Subjective Progress Note Date: 05/29/24 This is a 59-year-old male patient, with an abnormal stress test involving the inferolateral leads and the patient underwent a cardiac catheterization the patient was found to have triple-vessel coronary artery disease. LV function is preserved with an ejection fraction of 55 to 60% with mild mitral and trace tricuspid regurgitation. He is known to have hypertension hyperlipidemia and borderline diabetes mellitus. He is a non-smoker and is morbidly obese. His body mass index is 34.4. The patient is scheduled to undergo a coronary artery bypass surgery in a.m. His CAT scan of the chest was completed on 05/27/2024 and the patient has moderate amount of calcification of the aortic arch. Moderate coronary artery calcification. Moderate aortic valve calcification. No evidence of any focal consolidation pneumothorax or pulmonary nodules. The patient's pulse ox currently is 98% on room air oxygen. He is hemodynamically stable. His labs was reviewed and the WBC count is at 6 with a hemoglobin 15.3, platelet count is at 136, BUN is 11 with a creatinine of 1.3 and a sodium level is 141. GFR is currently at 62. Normal LFTs. Denies having any chest pain. Carotid Doppler showed mild atherosclerotic plaques, no hemodynamically significant stenosis. 05/29/2024, the patient is arriving to the intensive care unit, intubated and mechanically ventilated. The patient underwent coronary bypass surgery with DE LA VEGA to LAD, radial to OM and SVG to PDA PDA. Currently, intermittently tachyca rdic, propofol running at 30 mcg/kg/min. Hemodynamically stable. While on the mechanical ventilator, assist-control mode with rate of 12, tidal volume of 500, FiO2 of 100% with a PEEP of 10. Blood gas showed a pH of 7.3 with a pCO2 of 51 and pO2 of 209. Chest x-ray shows adequate expansion of both lungs. No evidence of any pneumothorax. The patient has tubes x 2 in the mediastinum and 1 in the left pleural. Performed the tubes are minimal in the order of less than 200 cc from the left and less than 100 from the right. No evidence of any air leak. No evidence of any pneumothorax. Hemodynamically stable, currently on nitroglycerin drip running at 10 mcg/min. He is producing adequate amount of urine output. Cardiac output is at 4.6 with an index of 2.1. PA pressures of 40/28. The right radial artery is malfunctioning. The blood work is still pending for now. No other significant events otherwise reported. Objective - Vital Signs Vital signs: Vital Signs Temp 98.1 F 05/29/24 06:07 Pulse 60 05/29/24 06:07 Resp 18 05/29/24 06:07 BP 154/80 05/29/24 06:07 Pulse Ox 95 05/29/24 06:07 FiO2 100 05/29/24 15:46 Intake & Output 05/28/24 05/29/24 05/29/24 18:59 06:59 18:59 Intake Total 341.833 130.667 52 Output Total 1550 Balance 341.833 130.667 -1498 Weight 106.396 kg Intake: IV 52 Intake, IV Titration 105.833 130.667 Amount Heparin Sod,Pork in 0.45% 105.833 130.667 NaCl 25,000 unit In 0.45 % NaCl 1 250ml.bag @ 9. 186 UNITS/KG/HR 10 mls/hr IV .Q24H [facility] Rx#: [id number] Oral 236 Output: Urine 950 Estimated Blood Loss 600 Other: # Voids 3 - Exam The patient appeared well nourished and normally developed. Vital signs as doc umented. The patient is currently sedated on propofol. Calm and comfortable. Orotracheal and orogastric both in place. The patient has a right IJ [place]-Shlomo catheter in place. Head exam is unremarkable. No scleral icterus or corneal arcus noted. Neck is without jugular venous distension, thyromegaly, or carotid bruits. Carotid upstrokes are brisk bilaterally. Lungs are clear to auscultation and percussion. The patient has a mediastinal and left pleural chest tube. Cardiac exam reveals the PMI to be normally sized and situated. Rhythm is regular. First and second heart sounds normal. No murmurs, rubs or gallops. The patient has an intrinsic normal sinus rhythm. Abdominal exam reveals normal bowel sounds, no masses, no organomegaly and no aortic enlargement. Extremities are nonedematous and both femoral and pedal pulses are normal. Clean and the patient has a LANIE drain in the surgical bed. Lower extremities show adequate pulses and the patient also has a LANIE drain in his right lower extremity wounds. Examination of the skin revealed no evidence of significant rashes, suspicious appearing nevi or other concern the surgical wound site over the left upper extremity is ing lesions. Neurologically, the patient is sedated, calm and comfortable. - Labs CBC & Chem 7: 05/28/24 04:27 05/28/24 04:27 Labs: Abnormal Lab Results - Last 24 Hours (Table) 05/28/24 05/28/24 05/29/24 Range/Units 09:56 20:21 09:03 ABG pH (7.35-7.45) ABG pCO2 (35-45) mmHg ABG pO2 291 H (83-108) mmHg ABG O2 Saturation 99.2 H (94-97) % ABG Hematocrit (34.0-46.0) % ABG Potassium (3.4-4.5) mmol/L ABG Ionized Calcium (4.5-5.3) mg/dL ABG Glucose (75-99) mg/dL Hemoglobin (13.0-17.5) gm/dL POC Glucose (mg/dL) 136 H (70-110) mg/dL Arterial Blood Potassium (3.4-4.5) mmol/L Arterial Blood Glucose (75-99) mg/dL Crossmatch See Detail 05/29/24 05/29/24 05/29/24 Range/Units 11:16 12:18 12:49 ABG pH 7.34 L (7.35-7.45) ABG pCO2 46 H (35-45) mmHg ABG pO2 127 H 378 H 156 H (83-108) mmHg ABG O2 Saturation 98.4 H 99.3 H 98.6 H (94-97) % ABG Hematocrit 30 L 29 L (34.0-46.0) % ABG Potassium 4.8 H (3.4-4.5) mmol/L ABG Ionized Calcium 4.0 L 4.2 L (4.5-5.3) mg/dL ABG Glucose 110 H 110 H 115 H (75-99) mg/dL Hemoglobin 9.6 L 9.5 L (13.0-17.5) gm/dL POC Glucose (mg/dL) (70-110) mg/dL Arterial Blood Potassium 4.8 H (3.4-4.5) mmol/L Arterial Blood Glucose 110 H 110 H 115 H (75-99) mg/dL Crossmatch 05/29/24 05/29/24 05/29/24 Range/Units 13:27 14:08 14:59 ABG pH 7.34 L 7.29 L 7.33 L (7.35-7.45) ABG pCO2 51 H 46 H (35-45) mmHg ABG pO2 288 H 296 H (83-108) mmHg ABG O2 Saturation 99.2 H 99.1 H 97.3 H (94-97) % ABG Hematocrit 29 L 29 L 31 L (34.0-46.0) % ABG Potassium 4.9 H (3.4-4.5) mmol/L ABG Ionized Calcium 4.2 L 4.2 L (4.5-5.3) mg/dL ABG Glucose 141 H 125 H 111 H (75-99) mg/dL Hemoglobin 9.3 L 9.6 L 10.2 L (13.0-17.5) gm/dL POC Glucose (mg/dL) (70-110) mg/dL Arterial Blood Potassium 4.9 H (3.4-4.5) mmol/L Arterial Blood Glucose 141 H 125 H 111 H (75-99) mg/dL Crossmatch Microbiology - Last 24 Hours (Table) 05/28/24 05:55 Nasal Screen MRSA/MSSA - Final Nasal Swab Assessment and Plan Plan: Symptomatic multivessel coronary artery disease. Cardiac catheterization done 05/27/2024 showed two-vessel coronary artery disease including ostial circumflex and LAD with distal left main stenosis. The patient underwent a three-vessel bypass surgery with DE LA VEGA to LAD, radial to OM and SVG to PDA. Currently postop day #0. Hemodynamically stable, on nitroglycerin drip for blood pressure control running at 10 mcg/min. Postthoracotomy, chest x-ray shows no complications. Adequate suppression of both lungs. No pneumothorax. Output from the chest tubes are minimal. Blood gas was noted and there is a component of mild respiratory acidosis. Diabetes mellitus type 2, currently on sliding scale insulin coverage. Insulin drip if needed. Hypertension Hyperlipidemia Osteoarthritis Obesity with a BMI of 34. Plan Continue ventilator support and increase the respirate up to 18. Dropped FiO2 down to 80% and gradually wean it down to maintain saturation above 90% Monitor hemodynamics Monitor cardiac output and index Continue nitroglycerin drip Cardiac rhythm is sinus Insulin drip if needed Gradual wean of propofol Anticipate extubation within the next 2 to 6 hours. Will continue to follow. Critical care management, >30 min
[2024-05-29] MEDS: CLEVIDIPINE BUTYRATE 25 MG in EMPTY BAG 1 BAG IV SCH (16:39)
[2024-05-29] MEDS: NITROGLYCERIN-D5W PMX 50 MG in DEXTROSE/WATER 1 250ML.BAG IV SCH (16:39)
[2024-05-29] MEDS: SODIUM CHLORIDE 0.9% 1,000 ML IV SCH (16:40)
[2024-05-29] MEDS: IPRATROPIUM-ALBUTEROL 3 ML NEB INHALATION SCH (16:46)
[2024-05-29 16:59] LABS: Ionized Calcium 4.6 mg/dL (4.5-5.3)
[2024-05-29 17:00] LABS: MCH 31.5 pg (25.0-35.0); MCHC 36.5 g/dL (31.0-37.0); MCV 86.2 fL (80.0-100.0); Mean Platelet Volume 9.3; RBC 3.82 m/uL (4.30-5.90); RDW 13.2 % (11.5-15.5); WBC 7.9 k/uL (3.8-10.6)
[2024-05-29 17:00] LABS: Glucose,Whole Blood 122 mg/dL (70-110)
[2024-05-29] MEDS: INSULIN REGULAR 100 UNIT in SODIUM CHLORIDE 0.9% 100 ML IV SCH (17:02)
[2024-05-29 17:03] LABS: INR 1.1 (<1.2); Prothrombin Time 11.8 sec (10.0-12.5)
[2024-05-29 17:04] LABS: Platelet Count 84 k/uL (150-450)
[2024-05-29 17:09] LABS: ALT 26 U/L (4-49); AST 55 U/L (17-59); African American GFR (CKD) 81 (>60 ml/min/1.73 sqM); Albumin 2.9 g/dL (3.5-5.0); Alkaline Phosphatase 52 U/L (38-126); Anion Gap 3 mmol/L; Blood Urea Nitrogen 11 mg/dL (9-20); Calcium 8.1 mg/dL (8.4-10.2); Carbon Dioxide 25 mmol/L (22-30); Chloride 111 mmol/L (98-107); Glucose 100 mg/dL (74-99); Non-African American GFR(CKD) 70 (>60 ml/min/1.73 sqM); Potassium 4.2 mmol/L (3.5-5.1); Sodium 139 mmol/L (137-145); Total Bilirubin 0.9 mg/dL (0.2-1.3); Total Protein 4.9 g/dL (6.3-8.2)
[2024-05-29] MEDS: ACETAMINOPHEN IV (For NPO) 1,000 MG in EMPTY BAG 1 BAG IVPB SCH (17:32)
[2024-05-29] MEDS: HEPARIN SODIUM,PORCINE 5,000 UNIT/ML 1 ML VIAL SQ SCH (17:51)
--- NOTE | 2024-05-29 17:53 | P.PN ---
Subjective Progress Note Date: 05/29/24 Subjective: Patient seen and examined at the bedside. No intraoperative complications. Patient is currently sedated, intubated and mechanically ventilated. All Systems reviewed and pertinent positives and negatives noted in HPI, all other symptoms are negative Objective: Vital signs reviewed. General: Intubated and sedated Derm: no unusual rashes/lesions, warm Head: atraumatic, normocephalic, symmetric Eyes: anicteric sclera, pupils equal round reactive to light ENT: Nose and ears atraumatic Mouth: no lip lesion, mucus membranes moist Cardiovascular: S1S2 reg, no murmur, positive dorsalis pedis pulse bilateral, no edema Lungs: CTA bilateral, no rhonchi, no rales, no accessory muscle use, mechanically ventilated Abdominal: soft, nondistended, no guarding Ext: no gross muscle atrophy, no contractures, Neuro: Sedated Psych: Unable to assess Data reviewed today: Labs: WBC 7.9, hemoglobin 12.0, platelet count 84, sodium 139, potassium 4.2, chloride 111, creatinine 1.13, glucose 122, calcium 8.1, Images: No new imaging Assessment and Plan: 59-year-old male with history of type 2 diabetes, hyperlipidemia, and hypertension initially came to the ER with a abnormal stress test done outpatient cardiology. Patient is admitted for unstable angina with cardiac catheterization showing multivessel CAD. CABG on 05/29/2024, postop day 0. #CAD status post CABG on 05/29/2024 #Postoperative anemia, anticipated #Hypertension Cardiothoracic surgery on board, on Cleviprex drip, nitroglycerin drip Cardiology on board, recs appreciated Aspirin 325 mg p.o. daily Lipitor 80 mg p.o. at bedtime Metoprolol 12.5 mg p.o. twice daily Echocardiogram shows LVEF of 55 to 60% with normal LV function Continue cardiac monitoring Monitor CBC and BMP Sedation weaning and extubation per inspector machine cut glass #Type 2 diabetes HbA1c 6.6 Continue insulin drip, fingersticks every hour -Transition to subcu insulin once patient able to tolerate oral intake Chronic condition: Gout: Hold colchicine, Probenecid Thank you for allowing us to participate in the care of this pleasant patient. Do not hesitate to contact us with questions. Someone can be reached from the [facility]Note 3] hospitalist group all hours of the day at [phone] or via perfect serve. I have seen and evaluated the patient today. Discussed with the resident and agree with the residents finding and plan as documented in the resident's note. Changes highlighted in blue font. Objective - Vital Signs Vital signs: Vital Signs Temp 98.1 F 05/29/24 06:07 Pulse 80 05/29/24 16:53 Resp 18 05/29/24 06:07 BP 154/80 05/29/24 06:07 Pulse Ox 95 05/29/24 06:07 FiO2 80 05/29/24 16:09 Intake & Output 05/28/24 05/29/24 05/29/24 18:59 06:59 18:59 Intake Total 341.833 130.667 52.533 Output Total 1550 Balance 341.833 130.667 -1497.467 Weight 106.396 kg Intake: IV 52 Intake, IV Titration 105.833 130.667 0.533 Amount Clevidipine Butyrate 25 0.533 mg In Empty Bag 1 bag @ 1 MG/HR 2 mls/hr IV .Q24H [facility] Rx#:[id number] Heparin Sod,Pork in 0.45% 105.833 130.667 NaCl 25,000 unit In 0.45 % NaCl 1 250ml.bag @ 9. 186 UNITS/KG/HR 10 mls/hr IV .Q24H [facility] Rx#: [id number] Oral 236 Output: Urine 950 Estimated Blood Loss 600 Other: # Voids 3 - Labs CBC & Chem 7: 05/29/24 16:37 05/29/24 16:37 Labs: Abnormal Lab Results - Last 24 Hours (Table) 05/28/24 05/28/24 05/29/24 Range/Units 09:56 20:21 09:03 RBC (4.30-5.90) m/uL Hgb (13.0-17.5) gm/dL Hct (39.0-53.0) % Plt Count (150-450) k/uL APTT (22.0-30.0) sec ABG pH (7.35-7.45) ABG pCO2 (35-45) mmHg ABG pO2 291 H (83-108) mmHg ABG HCO3 (21-25) mmol/L ABG Total CO2 (19-24) mmol/L ABG O2 Saturation 99.2 H (94-97) % ABG Hematocrit (34.0-46.0) % ABG Potassium (3.4-4.5) mmol/L ABG Ionized Calcium (4.5-5.3) mg/dL ABG Glucose (75-99) mg/dL Hemoglobin (13.0-17.5) gm/dL Chloride (98-107) mmol/L Glucose (74-99) mg/dL POC Glucose (mg/dL) 136 H (70-110) mg/dL Calcium (8.4-10.2) mg/dL Total Protein (6.3-8.2) g/dL Albumin (3.5-5.0) g/dL Arterial Blood Potassium (3.4-4.5) mmol/L Arterial Blood Glucose (75-99) mg/dL Crossmatch See Detail 05/29/24 05/29/24 05/29/24 Range/Units 11:16 12:18 12:49 RBC (4.30-5.90) m/uL Hgb (13.0-17.5) gm/dL Hct (39.0-53.0) % Plt Count (150-450) k/uL APTT (22.0-30.0) sec ABG pH 7.34 L (7.35-7.45) ABG pCO2 46 H (35-45) mmHg ABG pO2 127 H 378 H 156 H (83-108) mmHg ABG HCO3 (21-25) mmol/L ABG Total CO2 (19-24) mmol/L ABG O2 Saturation 98.4 H 99.3 H 98.6 H (94-97) % ABG Hematocrit 30 L 29 L (34.0-46.0) % ABG Potassium 4.8 H (3.4-4.5) mmol/L ABG Ionized Calcium 4.0 L 4.2 L (4.5-5.3) mg/dL ABG Glucose 110 H 110 H 115 H (75-99) mg/dL Hemoglobin 9.6 L 9.5 L (13.0-17.5) gm/dL Chloride (98-107) mmol/L Glucose (74-99) mg/dL POC Glucose (mg/dL) (70-110) mg/dL Calcium (8.4-10.2) mg/dL Total Protein (6.3-8.2) g/dL Albumin (3.5-5.0) g/dL Arterial Blood Potassium 4.8 H (3.4-4.5) mmol/L Arterial Blood Glucose 110 H 110 H 115 H (75-99) mg/dL Crossmatch 05/29/24 05/29/24 05/29/24 Range/Units 13:27 14:08 14:59 RBC (4.30-5.90) m/uL Hgb (13.0-17.5) gm/dL Hct (39.0-53.0) % Plt Count (150-450) k/uL APTT (22.0-30.0) sec ABG pH 7.34 L 7.29 L 7.33 L (7.35-7.45) ABG pCO2 51 H 46 H (35-45) mmHg ABG pO2 288 H 296 H (83-108) mmHg ABG HCO3 (21-25) mmol/L ABG Total CO2 (19-24) mmol/L ABG O2 Saturation 99.2 H 99.1 H 97.3 H (94-97) % ABG Hematocrit 29 L 29 L 31 L (34.0-46.0) % ABG Potassium 4.9 H (3.4-4.5) mmol/L ABG Ionized Calcium 4.2 L 4.2 L (4.5-5.3) mg/dL ABG Glucose 141 H 125 H 111 H (75-99) mg/dL Hemoglobin 9.3 L 9.6 L 10.2 L (13.0-17.5) gm/dL Chloride (98-107) mmol/L Glucose (74-99) mg/dL POC Glucose (mg/dL) (70-110) mg/dL Calcium (8.4-10.2) mg/dL Total Protein (6.3-8.2) g/dL Albumin (3.5-5.0) g/dL Arterial Blood Potassium 4.9 H (3.4-4.5) mmol/L Arterial Blood Glucose 141 H 125 H 111 H (75-99) mg/dL Crossmatch 05/29/24 05/29/24 05/29/24 Range/Units 16:04 16:37 16:37 RBC 3.82 L (4.30-5.90) m/uL Hgb 12.0 L D (13.0-17.5) gm/dL Hct 33.0 L (39.0-53.0) % Plt Count 84 L (150-450) k/uL APTT 36.0 H (22.0-30.0) sec ABG pH 7.31 L (7.35-7.45) ABG pCO2 51 H (35-45) mmHg ABG pO2 209 H (83-108) mmHg ABG HCO3 26 H (21-25) mmol/L ABG Total CO2 27 H (19-24) mmol/L ABG O2 Saturation 99.8 H (94-97) % ABG Hematocrit (34.0-46.0) % ABG Potassium (3.4-4.5) mmol/L ABG Ionized Calcium (4.5-5.3) mg/dL ABG Glucose (75-99) mg/dL Hemoglobin 11.8 L (13.0-17.5) gm/dL Chloride (98-107) mmol/L Glucose (74-99) mg/dL POC Glucose (mg/dL) (70-110) mg/dL Calcium (8.4-10.2) mg/dL Total Protein (6.3-8.2) g/dL Albumin (3.5-5.0) g/dL Arterial Blood Potassium (3.4-4.5) mmol/L Arterial Blood Glucose (75-99) mg/dL Crossmatch 05/29/24 05/29/24 Range/Units 16:37 16:58 RBC (4.30-5.90) m/uL Hgb (13.0-17.5) gm/dL Hct (39.0-53.0) % Plt Count (150-450) k/uL APTT (22.0-30.0) sec ABG pH (7.35-7.45) ABG pCO2 (35-45) mmHg ABG pO2 (83-108) mmHg ABG HCO3 (21-25) mmol/L ABG Total CO2 (19-24) mmol/L ABG O2 Saturation (94-97) % ABG Hematocrit (34.0-46.0) % ABG Potassium (3.4-4.5) mmol/L ABG Ionized Calcium (4.5-5.3) mg/dL ABG Glucose (75-99) mg/dL Hemoglobin (13.0-17.5) gm/dL Chloride 111 H (98-107) mmol/L Glucose 100 H (74-99) mg/dL POC Glucose (mg/dL) 122 H (70-110) mg/dL Calcium 8.1 L (8.4-10.2) mg/dL Total Protein 4.9 L (6.3-8.2) g/dL Albumin 2.9 L (3.5-5.0) g/dL Arterial Blood Potassium (3.4-4.5) mmol/L Arterial Blood Glucose (75-99) mg/dL Crossmatch Microbiology - Last 24 Hours (Table) 05/28/24 05:55 Nasal Screen MRSA/MSSA - Final Nasal Swab
[2024-05-29 17:56] LABS: Glucose,Whole Blood 157 mg/dL (70-110)
[2024-05-29] MEDS: MORPHINE SULFATE 2 MG/ML SYRINGE IVP PRN (18:30)
[2024-05-29 18:57] LABS: ABG Base Excess -4.2 mmol/L; ABG HCO3 21 mmol/L (21-25); ABG PCO2 38 mmHg (35-45); ABG PH 7.35 (7.35-7.45); ABG PO2 64 mmHg (83-108); ABG TCO2 22 mmol/L (19-24)
[2024-05-29 18:59] LABS: Allen Test Performed? no
[2024-05-29 19:04] LABS: Glucose,Whole Blood 157 mg/dL (70-110)
[2024-05-29 19:07] LABS: Basophils % (A) 0 %; Eosinophils % (A) 0 %; HCT 36.9 % (39.0-53.0); HGB 12.7 gm/dL (13.0-17.5); Lymphocytes # (A) 1.4 k/uL (1.0-4.8); Lymphocytes % (A) 11 %; MCH 30.5 pg (25.0-35.0); MCHC 34.5 g/dL (31.0-37.0); MCV 88.4 fL (80.0-100.0); Mean Platelet Volume 8.7; Monocytes # (A) 0.8 k/uL (0-1.0); Monocytes % (A) 6 %; Neutrophils # (A) 10.3 k/uL (1.3-7.7); Neutrophils % (A) 82 %; Platelet Count 123 k/uL (150-450); RBC 4.18 m/uL (4.30-5.90); RDW 12.9 % (11.5-15.5); WBC 12.5 k/uL (3.8-10.6)
[2024-05-29 20:00] LABS: Glucose,Whole Blood 168 mg/dL (70-110)
[2024-05-29 21:01] LABS: Glucose,Whole Blood 160 mg/dL (70-110)
[2024-05-29] MEDS: SENNOSIDES-DOCUSATE SODIUM 1 EACH TAB PO SCH (21:21)
[2024-05-29 22:04] LABS: Glucose,Whole Blood 167 mg/dL (70-110)
[2024-05-29 22:28] LABS: Basophils % (A) 0 %; Eosinophils % (A) 0 %; HGB 12.7 gm/dL (13.0-17.5); Lymphocytes % (A) 8 %; MCH 30.2 pg (25.0-35.0); MCHC 34.2 g/dL (31.0-37.0); MCV 88.2 fL (80.0-100.0); Monocytes # (A) 0.8 k/uL (0-1.0); Monocytes % (A) 6 %; Neutrophils # (A) 11.4 k/uL (1.3-7.7); Neutrophils % (A) 86 %; Platelet Count 118 k/uL (150-450); RBC 4.19 m/uL (4.30-5.90); RDW 12.9 % (11.5-15.5); WBC 13.3 k/uL (3.8-10.6)
[2024-05-29 23:02] LABS: Glucose,Whole Blood 145 mg/dL (70-110)
[2024-05-30 00:05] LABS: Glucose,Whole Blood 139 mg/dL (70-110)
[2024-05-30 01:10] LABS: Glucose,Whole Blood 126 mg/dL (70-110)
[2024-05-30 02:03] LABS: Glucose,Whole Blood 132 mg/dL (70-110)
[2024-05-30] MEDS: ALBUMIN HUMAN 5% 250 ML in EMPTY BAG 1 BAG IVPB PRN (02:43)
[2024-05-30 02:57] LABS: Glucose,Whole Blood 118 mg/dL (70-110)
[2024-05-30 04:04] LABS: Glucose,Whole Blood 111 mg/dL (70-110)
[2024-05-30 04:13] LABS: Ionized Calcium 4.7 mg/dL (4.5-5.3)
[2024-05-30 04:21] LABS: ALT 31 U/L (4-49); AST 101 U/L (17-59); African American GFR (CKD) 85 (>60 ml/min/1.73 sqM); Albumin 3.2 g/dL (3.5-5.0); Alkaline Phosphatase 46 U/L (38-126); Anion Gap 5 mmol/L; Blood Urea Nitrogen 12 mg/dL (9-20); Calcium 8.3 mg/dL (8.4-10.2); Carbon Dioxide 23 mmol/L (22-30); Chloride 110 mmol/L (98-107); Glucose 104 mg/dL (74-99); Magnesium 1.9 mg/dL (1.6-2.3); Non-African American GFR(CKD) 74 (>60 ml/min/1.73 sqM); Potassium 4.1 mmol/L (3.5-5.1); Sodium 138 mmol/L (137-145); Total Bilirubin 0.6 mg/dL (0.2-1.3); Total Protein 5.3 g/dL (6.3-8.2)
[2024-05-30 04:37] LABS: Basophils % (A) 0 %; Eosinophils % (A) 0 %; HCT 32.8 % (39.0-53.0); HGB 11.3 gm/dL (13.0-17.5); Lymphocytes # (A) 0.8 k/uL (1.0-4.8); Lymphocytes % (A) 8 %; MCHC 34.3 g/dL (31.0-37.0); MCV 87.3 fL (80.0-100.0); Mean Platelet Volume 9.7; Monocytes # (A) 0.5 k/uL (0-1.0); Monocytes % (A) 5 %; Neutrophils # (A) 8.1 k/uL (1.3-7.7); Neutrophils % (A) 86 %; RBC 3.76 m/uL (4.30-5.90); WBC 9.4 k/uL (3.8-10.6)
[2024-05-30] MEDS: MAGNESIUM SULFATE-D5W PMX 1 GM in DEXTROSE/WATER 1 100ML.BAG IVPB ONE (04:43)
[2024-05-30 04:53] LABS: Platelet Count 97 k/uL (150-450)
[2024-05-30 05:00] LABS: Glucose,Whole Blood 134 mg/dL (70-110)
[2024-05-30 05:55] LABS: Glucose,Whole Blood 153 mg/dL (70-110)
[2024-05-30 06:54] LABS: Glucose,Whole Blood 139 mg/dL (70-110)
[2024-05-30] MEDS: fentaNYL (PF) 50 MCG/ML 2 ML AMP IVP ONE (06:59)
--- NOTE | 2024-05-30 07:09 | OP ---
OPERATIVE REPORT DATE OF SERVICE : 05/29/2024 ASSISTANTS: PREOPERATIVE DIAGNOSES: Triple-vessel coronary artery disease, hypertension, hyperlipidemia, diabetes, obesity. POSTOPERATIVE DIAGNOSES: Triple-vessel coronary artery disease, hypertension, hyperlipidemia, diabetes, obesity. PROCEDURES: 1. Triple-vessel coronary artery bypass grafting using the in-situ left internal mammary artery to the left anterior descending artery, the left radial artery from the aorta to the 1st obtuse marginal artery, reverse saphenous vein graft from the aorta to the posterior descending artery. 2. Exclusion of the left atrial appendage using a 35 mm AtriClip. 3. Endoscopic harvesting of the left radial artery. 4. Endoscopic harvesting of the right greater saphenous vein. 5. Intraoperative graft flow measurements using the Sol[employer]-PivotDesk system. 6. Intraoperative transesophageal echocardiogram and epiaortic scanning. INDICATION FOR SURGERY: The patient is a 59-year-old gentleman admitted to the hospital with transient ST elevation and his trop were negative x3. Cardiac catheterization showed severe left main disease involving the ostium of the left anterior descending artery and the circumflex artery. There was evidence of a moderate stenosis of the mid to distal main right coronary artery. His left ventricular function is preserved. The patient has been taken for urgent coronary artery bypass surgery. The STS risk score was calculated, discussed with him. They understood and agreed to proceed. DESCRIPTION OF PROCEDURE: The patient had a right internal jugular Mill[place]-Shlomo catheter and a right radial arterial line placed in the preoperative holding area. His PA pressure was 40/20. Cardiac index was 2.3. Subsequently, he was brought to the operating room, where general endotracheal anesthesia was induced uneventfully. He received 2 g of cefazolin intravenously. The chest, abdomen, both lower extremity and the left upper extremity were prepped and draped using ChloraPrep. Ioban was used to cover the skin. Transesophageal echocardiogram confirmed the preoperative finding of preserved left ventricular function and no significant valvular abnormalities. Midline sternotomy was performed and no bone wax was used. The left hemisternum was elevated and the left internal mammary artery was harvested in a somewhat skeletonized fashion. The left pleura was intentionally opened in this process and was drained with a 19-Kinyarwanda Agustín drain. The patient was given 5000 units of heparin. The mammary artery was double clipped distally and transected, had maximum pulsatile from it and was around 2 mm in diameter. In the same setting, the left radial artery was exposed at the wrist and a clamping trial revealed preserved signal in the left index O2 saturation probe. Subsequently, the left radial artery was harvested endoscopically without using a tourniquet. Forearm incisions were closed over a drain. The radial artery was prepared by incising the fascia all along its volar aspect and clipping all its branches. It was of excellent quality around 3 mm in diameter. Also in the same setting, the right greater saphenous vein was harvested endoscopically from groin to the below knee level. The leg incisions were closed over a drain. The vein was prepared by ligating all its branches. It was of good quality around 3.5 mm in diameter and uniform. Ankeney retractor was used. Thick mediastinal fat was transected between 2 ties and epiaortic scanning ruled out any protruding atheroma in the ascending aorta. Pericardium was opened in an inverted T-fashion. Pericardial cradle was created. Findings included normal soft aorta and a normal-sized heart with evidence of diffuse coronary artery disease. After systemic heparinization after placement of respective pledgeted pursestring, aortic cannulation with a 21-Kinyarwanda soft flow cannula in the proximal arch, venous cannulation via the right atrial appendage with a 2 stage 29/37-Kinyarwanda cannula was performed. Antegrade as well as retrograde cardioplegia catheters were placed. Cardiopulmonary bypass was initiated and the patient's temperature was allowed to drift down to 34 degrees Celsius. With the heart empty and beating, we looked at the target. It appeared that the distal left anterior descending artery, the 1st obtuse marginal artery, and the proximal to mid posterior descending artery would be the site for bypass. The diagonal artery was small and diffusely diseased, non bypassable. The aorta was clamped and during aortic clamping myocardial protection was achieved with initial dose of 1 L of antegrade cold blood cardioplegia with adequate arrest at 200 mL followed by 400 mL of retrograde cold blood cardioplegia. All subsequent doses were given retrograde at 15 minutes interval with the left dose being warm blood via the retrograde. We started by excluding the left atrial appendage by deploying a 35 mm AtriClip at its base. The first distal anastomosis was between a segment of vein of reasonable quality and size and the mid posterior descending artery which was around 1.75 mm in diameter, mildly thickened using Prolene 7-0 in continuous fashion. The 2nd distal anastomosis was between the left radial artery and the 1st obtuse marginal artery, which was opened in its superior branching, was around 1.5 mm in diameter using Prolene 7-0 in a continuous fashion. The third and last distal anastomosis was between the in- situ left internal mammary artery that passed into a window in the lateral pericardium and anastomosed to the distal left anterior descending artery, where it was 1.5 mm diameter thin-walled using Prolene 7-0 in continuous fashion. Satisfied with the distal anastomosis, rewarming was started as we punched out 2 buttons of the ascending aorta and performed the 2 proximal anastomosis of the vein graft and the radial artery graft to the aorta separately using running Prolene. The patient has received 1 L of warm blood retrograde as well constructing the proximal anastomosis. He was given lidocaine and magnesium, placed in Trendelenburg position and subsequently the aorta was unclamped. The patient regained spontaneous sinus rhythm and his EKG normalized very quickly. Two monopolar atrial pacing wires were affixed to the respective perfusing of the right atrium. Two 19-Kinyarwanda Agustín drain was left substernally. After around 60 minutes of reperfusion, we were able to wean off cardiopulmonary bypass on nitroglycerin. DAVI showed good left ventricular function. At this point, we proceeded the graft flow measurements using the [employer] system and the flow into the vein to the posterior descending artery was 58 mL/minute, pulsatility index of 2, diastolic filling of 60%. The flow into the radial artery to the 1st obtuse marginal artery was around 24 mL/minute, pulsatility index of 3, diastolic filling of 62%. The flow into the left internal mammary artery to the left anterior descending artery was 45 mL/minute, pulsatility index of 1.7, diastolic filling of 70%, all showing excellent functioning graft. With that test dose and full-dose protamine. Decannulation followed. The venous cannulation site required reinforcement with a running Prolene. Pericardial fat was approximated over the aorta and the right ventricle. After ensuring adequate hemostasis, hemodynamic and after correct sponge, instrument, and needle count, the sternum was closed using 5 [id number] pineal cable after interposing fibular between the sternal edges. Thorough irrigation of cefazolin followed. Distal closure proceeded in layers. Skin glue was applied. The patient did not receive any blood products, but received around 400 mL of Cell Saver blood. He was transferred to the ICU in stable condition on low-dose nitroglycerin with good hemodynamics and normal EKG. VANNESA / DIANEN: [id number] / MTDD
--- NOTE | 2024-05-30 07:43 | XR ---
EXAMINATION TYPE: XR chest 1V portable DATE OF EXAM: 05/30/2024 COMPARISON: 05/29/2024 CLINICAL INDICATION: Male, 59 years old with history of Post Operative Cardiac Surgery; , TECHNIQUE: XR chest 1V portable views of the chest. FINDINGS: Dewey-Shlomo catheter, mediastinal drain and right-sided chest tube stable. ET tube has been removed. He art is enlarged. Question epicardial lead. Bilateral subsegmental consolidation. No sizable pneumotho rax. Osseous structures stable. IMPRESSION: 1. ET tube removal with persistent basilar atelectasis versus infiltrate. No overt failure. [facility], , 05/30/2024 7:41 AM
[2024-05-30 08:03] LABS: Glucose,Whole Blood 120 mg/dL (70-110)
[2024-05-30] MEDS: ATORVASTATIN 40 MG TAB PO SCH (08:14)
[2024-05-30] MEDS: ASPIRIN 325 MG TAB PO SCH (08:14)
[2024-05-30] MEDS: CLOPIDOGREL 75 MG TAB PO SCH (08:15)
[2024-05-30] MEDS: PANTOPRAZOLE 40 MG/10 ML VIAL IVP SCH (08:15)
[2024-05-30] MEDS: METOPROLOL TARTRATE 12.5 MG TAB PO SCH (08:15)
[2024-05-30] MEDS: FUROSEMIDE 10 MG/ML 2 ML VIAL IV STA (08:36)
[2024-05-30] MEDS: KETOROLAC 15 MG/ML 1 ML VIAL IVP STA (08:36)
[2024-05-30] MEDS ORDERED: bisacodyL 10 MG SUPP RECTAL PRN (09:00)
[2024-05-30] MEDS: IPRATROPIUM-ALBUTEROL 3 ML NEB INHALATION SCH (09:25)
[2024-05-30 09:56] VITALS: BMI 34.7
--- NOTE | 2024-05-30 09:57 | P.PN ---
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 Past medical history significant for hypertension, hyperlipidemia, borderline diabetes, obesity with a BMI of 34.7 kg/m, lifelong non-smoker, family history of premature coronary artery disease. POD #1 triple-vessel coronary artery bypass grafting using the in situ left internal mammary artery to the left anterior descending coronary artery, the left radial from the aorta to the first obtuse marginal coronary artery, a reverse saphenous vein graft from the aorta to the posterior descending coronary artery, exclusion of the left atrial appendage using a 35mm Atriclip, endoscopic harvesting of the left radial artery, endoscopic harvesting of the right greater saphenous vein, intraoperative graft flow measurements using the [email or web address] system, intraoperative transesophageal echocardiogram and epiaortic scanning. Postoperative acute blood loss anemia, expected given hemodilution and cardiopulmonary bypass. The patient was seen and examined in follow-up today May 30, 2024 at his bedside in the intensive care unit. He was successfully extubated at 7:15 PM last evening, is currently sitting up to the bedside chair, is awake, alert, oriented x 3 and is in no acute apparent distress. Oxygen saturations are 94% on 2 L and he is achieving 1250 mL on his incentive spirometry with encouragement. Denies any shortness of breath at this time, although is complaining of some surgical type pain to his chest tube insertion sites. Bedside telemetry is showing normal sinus rhythm heart rate 77 bpm. Right IJ cordis and Brighton-Shlomo catheter remain in place, current hemodynamics are showing a cardiac output of 5.2, cardiac index 2.3, SVR 983, PA pressures 23/9, and CVP 5 mmHg. Mediastinal and left pleural chest tubes remain in place to low continuous wall suction -20 cm H2O. No air leak is present. Draining thin serosanguineous drainage. Mediastinal chest tube drained 90 mL output in the last 8 hours and 250 mL output since surgery. Left pleural chest tube drained 110 mL output in the last 8 hours and 350 mL output since surgery. Chest x-ray and laboratory results were reviewed. Objective - Vital Signs Vital signs: Vital Signs Temp 98.6 F 05/30/24 08:00 Pulse 75 05/30/24 09:37 Resp 17 05/30/24 08:30 BP 103/61 05/30/24 06:30 Pulse Ox 95 05/30/24 09:27 FiO2 60 05/29/24 18:08 Intake & Output 05/29/24 05/30/24 05/30/24 18:59 06:59 18:59 Intake Total 666.007 8337.723 393.319 Output Total 2258 1035 90 Balance -1835.626 477.723 303.319 Weight 109.6 kg Intake: IV 381 1462 388 0.9 150 600 100 ACETAMINOPHEN IV (For NPO 200 ) 1,000 mg In Empty Bag 1 bag @ 400 mls/hr IVPB Q6HR [facility] Rx#:[id number] Albumin Human 5% 500 ml 250 250 In Empty Bag 1 bag @ 250 mls/hr IVPB ONCE ONE Rx#: [id number] CO/CI 170 260 20 Pressure Bag 9 102 18 ceFAZolin 2 gm In Sodium 50 Chloride 0.9% 50 ml @ 100 mls/hr IVPB ONCE ONE Rx# :[id number] Intake, IV Titration 41.374 50.723 5.319 Amount Clevidipine Butyrate 25 12.200 3.767 mg In Empty Bag 1 bag @ 1 MG/HR 2 mls/hr IV .Q24H [facility] Rx#:[id number] Insulin Regular 100 unit 0.446 46.956 5.319 In Sodium Chloride 0.9% 100 ml @ Per Protocol IV .Q0M [facility] Rx#:[id number] propofoL 1,000 mg In 28.728 Empty Bag 1 bag @ Titrate IV .Q0M [facility] Rx#: [id number] Output: Chest Tube Drainage 295 335 0 Left Pleural Chest Tube 190 170 0 Mediastinal Chest Tubes 105 165 0 Drainage 58 20 Left Wrist 18 10 Right Calf 40 10 Urine 1305 680 90 Estimated Blood Loss 600 Other: Voiding Method Indwelling Catheter Indwelling Catheter ABP, PAP, CO, CI - Last Documented Arterial Blood Pressure 111/55 Pulmonary Artery Pressure 24/14 Cardiac Output 5.2 Cardiac Index 2.3 - Exam CONSTITUTIONAL: Sitting up to the bedside chair in the intensive care unit, appears comfortable, cooperative, no apparent acute distress. HEENT: Neck is supple, no JVD, no lymphadenopathy. Right IJ Cordis and Brighton- Shlomo catheter in place and functioning. RESPIRATORY: Lungs sounds essentially clear throughout, diminished to his bilateral bases. Respirations are symmetrical and nonlabored. Currently on 2 L nasal cannula with oxygen saturations 94%. Able to achieve 1250 mL on his incentive spirometry. Strong cough. CARDIOVASCULAR: Regular rhythm and rate. S1 and S2 present, negative for S3, gallop or murmur. Bedside telemetry is showing normal sinus rhythm heart rate 77 bpm. Sternum is stable. Palpable peripheral pulses bilaterally. No calf pain or tenderness noted. Heart hugger in place with patient demonstrating appropriate use. Knee-high ANASTASIYA hose and sequential compression devices in place to his bilateral lower extremities. GASTROINTESTINAL: Abdomen soft, nontender, nondistended. Hypoactive bowel sounds present 4 quadrants. Tolerating diet. Passing flatus. No guarding or rigidity. GENITOURINARY: Melendez present draining clear, yellow urine. Urine output 425 mL in the last 8 hours. INTEGUMENTARY: Skin is warm and dry with no evidence of clubbing or cyanosis. Midline sternal incision clean dry and well approximated, covered with dry intact dressing. Right lower extremity EVH sites well approximated without redness or drainage. Left arm radial artery harvest sites clean, dry and approximated. No drainage or redness is present. NEUROLOGIC: Cranial nerves II through XII intact. No focal deficits. MUSKULOSKELETAL: Able to move all extremities, strength equal bilaterally, generalized weakness. PSYCHIATRIC: Alert and oriented to person place and time, appropriate affect, intact judgment and insight. INVASIVE LINES AND TUBES: Mediastinal/left pleural chest tubes present and connected to low continuous wall suction, no air leaks present. Mediastinal tube with 90 mL of thin serosanguineous drainage overnight, 250 mL output in the last 24 hours. Left pleural chest tube with 110 mL of thin serosanguineous drainage overnight, 350 mL output in the last 24 hours. Atrial epicardial pacemaker wires present, connected to generator, AAI backup rate 50 bpm. Right internal jugular Brighton/Cordis, right radial arterial line present. Last CO 5.2, CI 2.3, SVR 983 PA 23/9 and CVP 5 mmHg. Left arm LANIE drain in place with scant thin serosanguineous drainage, 10 mL output in the last 8 hours. Left lower extremity LANIE drain in place with scant thin serosanguineous drainage with 10 mL output in the last 8 hours. - Labs CBC & Chem 7: 05/30/24 04:02 05/30/24 04:02 Labs: Abnormal Lab Results - Last 24 Hours (Table) 05/28/24 05/29/24 05/29/24 Range/Units 09:56 11:16 12:18 WBC (3.8-10.6) k/uL RBC (4.30-5.90) m/uL Hgb (13.0-17.5) gm/dL Hct (39.0-53.0) % Plt Count (150-450) k/uL Neutrophils # (1.3-7.7) k/uL Lymphocytes # (1.0-4.8) k/uL APTT (22.0-30.0) sec ABG pH (7.35-7.45) ABG pCO2 (35-45) mmHg ABG pO2 127 H 378 H (83-108) mmHg ABG HCO3 (21-25) mmol/L ABG Total CO2 (19-24) mmol/L ABG O2 Saturation 98.4 H 99.3 H (94-97) % ABG Hematocrit 30 L (34.0-46.0) % ABG Potassium (3.4-4.5) mmol/L ABG Ionized Calcium 4.0 L (4.5-5.3) mg/dL ABG Glucose 110 H 110 H (75-99) mg/dL Hemoglobin 9.6 L (13.0-17.5) gm/dL Chloride (98-107) mmol/L Glucose (74-99) mg/dL POC Glucose (mg/dL) (70-110) mg/dL Calcium (8.4-10.2) mg/dL AST (17-59) U/L Total Protein (6.3-8.2) g/dL Albumin (3.5-5.0) g/dL Arterial Blood Potassium (3.4-4.5) mmol/L Arterial Blood Glucose 110 H 110 H (75-99) mg/dL Crossmatch See Detail 05/29/24 05/29/24 05/29/24 Range/Units 12:49 13:27 14:08 WBC (3.8-10.6) k/uL RBC (4.30-5.90) m/uL Hgb (13.0-17.5) gm/dL Hct (39.0-53.0) % Plt Count (150-450) k/uL Neutrophils # (1.3-7.7) k/uL Lymphocytes # (1.0-4.8) k/uL APTT (22.0-30.0) sec ABG pH 7.34 L 7.34 L 7.29 L (7.35-7.45) ABG pCO2 46 H 51 H (35-45) mmHg ABG pO2 156 H 288 H 296 H (83-108) mmHg ABG HCO3 (21-25) mmol/L ABG Total CO2 (19-24) mmol/L ABG O2 Saturation 98.6 H 99.2 H 99.1 H (94-97) % ABG Hematocrit 29 L 29 L 29 L (34.0-46.0) % ABG Potassium 4.8 H 4.9 H (3.4-4.5) mmol/L ABG Ionized Calcium 4.2 L 4.2 L 4.2 L (4.5-5.3) mg/dL ABG Glucose 115 H 141 H 125 H (75-99) mg/dL Hemoglobin 9.5 L 9.3 L 9.6 L (13.0-17.5) gm/dL Chloride (98-107) mmol/L Glucose (74-99) mg/dL POC Glucose (mg/dL) (70-110) mg/dL Calcium (8.4-10.2) mg/dL AST (17-59) U/L Total Protein (6.3-8.2) g/dL Albumin (3.5-5.0) g/dL Arterial Blood Potassium 4.8 H 4.9 H (3.4-4.5) mmol/L Arterial Blood Glucose 115 H 141 H 125 H (75-99) mg/dL Crossmatch 05/29/24 05/29/24 05/29/24 Range/Units 14:59 16:04 16:37 WBC (3.8-10.6) k/uL RBC 3.82 L (4.30-5.90) m/uL Hgb 12.0 L D (13.0-17.5) gm/dL Hct 33.0 L (39.0-53.0) % Plt Count 84 L (150-450) k/uL Neutrophils # (1.3-7.7) k/uL Lymphocytes # (1.0-4.8) k/uL APTT (22.0-30.0) sec ABG pH 7.33 L 7.31 L (7.35-7.45) ABG pCO2 46 H 51 H (35-45) mmHg ABG pO2 209 H (83-108) mmHg ABG HCO3 26 H (21-25) mmol/L ABG Total CO2 27 H (19-24) mmol/L ABG O2 Saturation 97.3 H 99.8 H (94-97) % ABG Hematocrit 31 L (34.0-46.0) % ABG Potassium (3.4-4.5) mmol/L ABG Ionized Calcium (4.5-5.3) mg/dL ABG Glucose 111 H (75-99) mg/dL Hemoglobin 10.2 L 11.8 L (13.0-17.5) gm/dL Chloride (98-107) mmol/L Glucose (74-99) mg/dL POC Glucose (mg/dL) (70-110) mg/dL Calcium (8.4-10.2) mg/dL AST (17-59) U/L Total Protein (6.3-8.2) g/dL Albumin (3.5-5.0) g/dL Arterial Blood Potassium (3.4-4.5) mmol/L Arterial Blood Glucose 111 H (75-99) mg/dL Crossmatch 05/29/24 05/29/24 05/29/24 Range/Units 16:37 16:37 16:58 WBC (3.8-10.6) k/uL RBC (4.30-5.90) m/uL Hgb (13.0-17.5) gm/dL Hct (39.0-53.0) % Plt Count (150-450) k/uL Neutrophils # (1.3-7.7) k/uL Lymphocytes # (1.0-4.8) k/uL APTT 36.0 H (22.0-30.0) sec ABG pH (7.35-7.45) ABG pCO2 (35-45) mmHg ABG pO2 (83-108) mmHg ABG HCO3 (21-25) mmol/L ABG Total CO2 (19-24) mmol/L ABG O2 Saturation (94-97) % ABG Hematocrit (34.0-46.0) % ABG Potassium (3.4-4.5) mmol/L ABG Ionized Calcium (4.5-5.3) mg/dL ABG Glucose (75-99) mg/dL Hemoglobin (13.0-17.5) gm/dL Chloride 111 H (98-107) mmol/L Glucose 100 H (74-99) mg/dL POC Glucose (mg/dL) 122 H (70-110) mg/dL Calcium 8.1 L (8.4-10.2) mg/dL AST (17-59) U/L Total Protein 4.9 L (6.3-8.2) g/dL Albumin 2.9 L (3.5-5.0) g/dL Arterial Blood Potassium (3.4-4.5) mmol/L Arterial Blood Glucose (75-99) mg/dL Crossmatch 05/29/24 05/29/24 05/29/24 Range/Units 17:55 18:55 18:55 WBC 12.5 H (3.8-10.6) k/uL RBC 4.18 L (4.30-5.90) m/uL Hgb 12.7 L (13.0-17.5) gm/dL Hct 36.9 L (39.0-53.0) % Plt Count 123 L (150-450) k/uL Neutrophils # 10.3 H (1.3-7.7) k/uL Lymphocytes # (1.0-4.8) k/uL APTT (22.0-30.0) sec ABG pH (7.35-7.45) ABG pCO2 (35-45) mmHg ABG pO2 64 L (83-108) mmHg ABG HCO3 (21-25) mmol/L ABG Total CO2 (19-24) mmol/L ABG O2 Saturation 92.0 L (94-97) % ABG Hematocrit (34.0-46.0) % ABG Potassium (3.4-4.5) mmol/L ABG Ionized Calcium (4.5-5.3) mg/dL ABG Glucose (75-99) mg/dL Hemoglobin 12.7 L (13.0-17.5) gm/dL Chloride (98-107) mmol/L Glucose (74-99) mg/dL POC Glucose (mg/dL) 157 H (70-110) mg/dL Calcium (8.4-10.2) mg/dL AST (17-59) U/L Total Protein (6.3-8.2) g/dL Albumin (3.5-5.0) g/dL Arterial Blood Potassium (3.4-4.5) mmol/L Arterial Blood Glucose (75-99) mg/dL Crossmatch 05/29/24 05/29/24 05/29/24 Range/Units 19:02 19:59 20:56 WBC (3.8-10.6) k/uL RBC (4.30-5.90) m/uL Hgb (13.0-17.5) gm/dL Hct (39.0-53.0) % Plt Count (150-450) k/uL Neutrophils # (1.3-7.7) k/uL Lymphocytes # (1.0-4.8) k/uL APTT (22.0-30.0) sec ABG pH (7.35-7.45) ABG pCO2 (35-45) mmHg ABG pO2 (83-108) mmHg ABG HCO3 (21-25) mmol/L ABG Total CO2 (19-24) mmol/L ABG O2 Saturation (94-97) % ABG Hematocrit (34.0-46.0) % ABG Potassium (3.4-4.5) mmol/L ABG Ionized Calcium (4.5-5.3) mg/dL ABG Glucose (75-99) mg/dL Hemoglobin (13.0-17.5) gm/dL Chloride (98-107) mmol/L Glucose (74-99) mg/dL POC Glucose (mg/dL) 157 H 168 H 160 H (70-110) mg/dL Calcium (8.4-10.2) mg/dL AST (17-59) U/L Total Protein (6.3-8.2) g/dL Albumin (3.5-5.0) g/dL Arterial Blood Potassium (3.4-4.5) mmol/L Arterial Blood Glucose (75-99) mg/dL Crossmatch 05/29/24 05/29/24 05/29/24 Range/Units 21:25 22:02 23:01 WBC 13.3 H (3.8-10.6) k/uL RBC 4.19 L (4.30-5.90) m/uL Hgb 12.7 L (13.0-17.5) gm/dL Hct 37.0 L (39.0-53.0) % Plt Count 118 L (150-450) k/uL Neutrophils # 11.4 H (1.3-7.7) k/uL Lymphocytes # (1.0-4.8) k/uL APTT (22.0-30.0) sec ABG pH (7.35-7.45) ABG pCO2 (35-45) mmHg ABG pO2 (83-108) mmHg ABG HCO3 (21-25) mmol/L ABG Total CO2 (19-24) mmol/L ABG O2 Saturation (94-97) % ABG Hematocrit (34.0-46.0) % ABG Potassium (3.4-4.5) mmol/L ABG Ionized Calcium (4.5-5.3) mg/dL ABG Glucose (75-99) mg/dL Hemoglobin (13.0-17.5) gm/dL Chloride (98-107) mmol/L Glucose (74-99) mg/dL POC Glucose (mg/dL) 167 H 145 H (70-110) mg/dL Calcium (8.4-10.2) mg/dL AST (17-59) U/L Total Protein (6.3-8.2) g/dL Albumin (3.5-5.0) g/dL Arterial Blood Potassium (3.4-4.5) mmol/L Arterial Blood Glucose (75-99) mg/dL Crossmatch 05/30/24 05/30/24 05/30/24 Range/Units 00:04 00:59 02:00 WBC (3.8-10.6) k/uL RBC (4.30-5.90) m/uL Hgb (13.0-17.5) gm/dL Hct (39.0-53.0) % Plt Count (150-450) k/uL Neutrophils # (1.3-7.7) k/uL Lymphocytes # (1.0-4.8) k/uL APTT (22.0-30.0) sec ABG pH (7.35-7.45) ABG pCO2 (35-45) mmHg ABG pO2 (83-108) mmHg ABG HCO3 (21-25) mmol/L ABG Total CO2 (19-24) mmol/L ABG O2 Saturation (94-97) % ABG Hematocrit (34.0-46.0) % ABG Potassium (3.4-4.5) mmol/L ABG Ionized Calcium (4.5-5.3) mg/dL ABG Glucose (75-99) mg/dL Hemoglobin (13.0-17.5) gm/dL Chloride (98-107) mmol/L Glucose (74-99) mg/dL POC Glucose (mg/dL) 139 H 126 H 132 H (70-110) mg/dL Calcium (8.4-10.2) mg/dL AST (17-59) U/L Total Protein (6.3-8.2) g/dL Albumin (3.5-5.0) g/dL Arterial Blood Potassium (3.4-4.5) mmol/L Arterial Blood Glucose (75-99) mg/dL Crossmatch 05/30/24 05/30/24 05/30/24 Range/Units 02:56 04:02 04:02 WBC (3.8-10.6) k/uL RBC 3.76 L (4.30-5.90) m/uL Hgb 11.3 L (13.0-17.5) gm/dL Hct 32.8 L (39.0-53.0) % Plt Count 97 L (150-450) k/uL Neutrophils # 8.1 H (1.3-7.7) k/uL Lymphocytes # 0.8 L (1.0-4.8) k/uL APTT (22.0-30.0) sec ABG pH (7.35-7.45) ABG pCO2 (35-45) mmHg ABG pO2 (83-108) mmHg ABG HCO3 (21-25) mmol/L ABG Total CO2 (19-24) mmol/L ABG O2 Saturation (94-97) % ABG Hematocrit (34.0-46.0) % ABG Potassium (3.4-4.5) mmol/L ABG Ionized Calcium (4.5-5.3) mg/dL ABG Glucose (75-99) mg/dL Hemoglobin (13.0-17.5) gm/dL Chloride 110 H (98-107) mmol/L Glucose 104 H (74-99) mg/dL POC Glucose (mg/dL) 118 H (70-110) mg/dL Calcium 8.3 L (8.4-10.2) mg/dL AST 101 H (17-59) U/L Total Protein 5.3 L (6.3-8.2) g/dL Albumin 3.2 L (3.5-5.0) g/dL Arterial Blood Potassium (3.4-4.5) mmol/L Arterial Blood Glucose (75-99) mg/dL Crossmatch 05/30/24 05/30/24 05/30/24 Range/Units 04:02 04:57 05:53 WBC (3.8-10.6) k/uL RBC (4.30-5.90) m/uL Hgb (13.0-17.5) gm/dL Hct (39.0-53.0) % Plt Count (150-450) k/uL Neutrophils # (1.3-7.7) k/uL Lymphocytes # (1.0-4.8) k/uL APTT (22.0-30.0) sec ABG pH (7.35-7.45) ABG pCO2 (35-45) mmHg ABG pO2 (83-108) mmHg ABG HCO3 (21-25) mmol/L ABG Total CO2 (19-24) mmol/L ABG O2 Saturation (94-97) % ABG Hematocrit (34.0-46.0) % ABG Potassium (3.4-4.5) mmol/L ABG Ionized Calcium (4.5-5.3) mg/dL ABG Glucose (75-99) mg/dL Hemoglobin (13.0-17.5) gm/dL Chloride (98-107) mmol/L Glucose (74-99) mg/dL POC Glucose (mg/dL) 111 H 134 H 153 H (70-110) mg/dL Calcium (8.4-10.2) mg/dL AST (17-59) U/L Total Protein (6.3-8.2) g/dL Albumin (3.5-5.0) g/dL Arterial Blood Potassium (3.4-4.5) mmol/L Arterial Blood Glucose (75-99) mg/dL Crossmatch 05/30/24 05/30/24 Range/Units 06:53 08:02 WBC (3.8-10.6) k/uL RBC (4.30-5.90) m/uL Hgb (13.0-17.5) gm/dL Hct (39.0-53.0) % Plt Count (150-450) k/uL Neutrophils # (1.3-7.7) k/uL Lymphocytes # (1.0-4.8) k/uL APTT (22.0-30.0) sec ABG pH (7.35-7.45) ABG pCO2 (35-45) mmHg ABG pO2 (83-108) mmHg ABG HCO3 (21-25) mmol/L ABG Total CO2 (19-24) mmol/L ABG O2 Saturation (94-97) % ABG Hematocrit (34.0-46.0) % ABG Potassium (3.4-4.5) mmol/L ABG Ionized Calcium (4.5-5.3) mg/dL ABG Glucose (75-99) mg/dL Hemoglobin (13.0-17.5) gm/dL Chloride (98-107) mmol/L Glucose (74-99) mg/dL POC Glucose (mg/dL) 139 H 120 H (70-110) mg/dL Calcium (8.4-10.2) mg/dL AST (17-59) U/L Total Protein (6.3-8.2) g/dL Albumin (3.5-5.0) g/dL Arterial Blood Potassium (3.4-4.5) mmol/L Arterial Blood Glucose (75-99) mg/dL Crossmatch Microbiology - Last 24 Hours (Table) 05/28/24 05:55 Nasal Screen MRSA/MSSA - Final Nasal Swab Assessment and Plan Assessment: Two-vessel and left main coronary artery disease with exertional SOB as anginal equivalent, status post three-vessel coronary artery bypass grafting surgery History of hypertension Hyperlipidemia, cholesterol 220, LDL 148, triglycerides 181 Diabetes mellitus, hemoglobin A1c 6.6% Obesity with a BMI of 34.7 kg/m Lifelong non-smoker, preoperative FEV1 97% of predicted Family history of premature coronary artery disease Postoperative acute blood loss anemia, expected given hemodilution and cardiopulmonary bypass Plan: Continue to maximize medical therapy with aspirin, statin, Plavix and beta- cristina. Will increase metoprolol to tartrate as tolerated, currently on 12.5 mg p.o. twice daily with hold parameters. Discontinue IV nitroglycerin drip. Will start Norvasc 2.5 mg p.o. daily at noon for radial artery spasm prophylaxis with hold parameters. Wean oxygen as tolerated. Encourage incentive spirometry use 10 times every hour while awake. Bronchodilators per pulmonology. Increase activity, ambulate as tolerated. PT/OT/cardiac rehab consulted. Will monitor daily labs and chest x-rays. Electrolyte replacement per protocol. GI/DVT prophylaxis. Remove Brighton-Shlomo catheter, continue right IJ cordis to continuous CVP mo nitoring. Insulin management per internal medicine. Patient preoperative hemoglobin A1c 6.6%. Should remain on continuous IV insulin for 48 hours then may transition to subcutaneous per protocol. Pain control per current medication regimen. Will add Toradol 15 mg IV every 6 hours for additional pain control. Continue chest tubes for another 24 hours, monitor output. Continue Melendez catheter for another 24 hours, continue to monitor and record strict accurate intake and output. Lasix 20 mg IV x 1 now. Daily weights. Keep atrial epicardial pacemaker wires in place and connected to backup bedside pacemaker generator on an AAI of 50 bpm. More recommendations to follow based on patient's clinical course. Time with Patient: Greater than 30
[2024-05-30 10:03] LABS: Glucose,Whole Blood 109 mg/dL (70-110)
[2024-05-30 10:58] LABS: Glucose,Whole Blood 115 mg/dL (70-110)
[2024-05-30] MEDS: amLODIPine 2.5 MG TAB PO SCH (11:58)
[2024-05-30 12:03] LABS: Glucose,Whole Blood 106 mg/dL (70-110)
--- NOTE | 2024-05-30 12:36 | P.PN ---
Subjective Progress Note Date: 05/30/24 HISTORY OF PRESENT ILLNESS: This is a 59-year-old male with a past medical history significant for hyper tension, hyperlipidemia, and diabetes. 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 Patient initially presented to the hospital this morning for an outpatient stress test. Patient states he has been having shortness of breath with exertion for approximately 2 months. Patient exercised for approximately 7 minutes on the treadmill. He was unable to reach his target heart rate due to significant shortness of breath. Patient did appear slightly ashen in color at that time. He denied having any chest pain. He did report having maybe some vague chest tightness. EKG at that time revealed ST elevation in aVR and ST depressions in inferior lateral leads. Patient's EKG changes did resolve with r est. Recommendation was made for hospital admission with cardiac catheterization to be performed tomorrow. The patient is agreeable. He is a non-smoker. He reports a family history of heart disease. He states his dad had issues with his heart valves but does not think he had any problems with h eart blockages. DIAGNOSTICS: - EKG reveals this mechanism with no signs of acute ischemia. - Laboratory data: WBC 7.9. Hemoglobin 16.2. Platelet count 156. Sodium 142. Potassium 4.3. BUN 13. Creatinine 1.24. - home cardiac medications include metoprolol tartrate 100 mg twice a day and amlodipine 10 mg daily 05/28/2024 Patient is status post cardiac catheterization revealing two-vessel coronary artery disease involving ostial circumflex and LAD with distal left main stenosis. Patient examined this morning at the bedside. Patient currently denies chest pain or pressure. He denies shortness of breath. He remains on IV heparin. Vital signs are stable. Telemetry reveals sinus mechanism. Plan is for CABG tomorrow with Dr. Bloom. Echocardiogram completed revealing ejection fraction 55 to 60%. May 30, 2024 S/p triple-vessel CABG with [place] to LAD, left radial to first OM, SVG to PDA, left atrial appendage occlusion with atrial clip, Currently has a right IJ [place]-Shlomo catheter in place, cardiac output 3.2, cardiac index 2.3, PA pressure 23 over 10 mmHg, CVP 5 mmHg Mediastinal chest tube in place, to 50 cc output since surgery Left pleural chest tube in place 350 output since surgery LANIE drain in place of left radial and SVG harvest. On 2 L of oxygen saturating 94%, 1250 mL on incentive spirometer. PHYSICAL EXAM: LUNGS: Mild crackles audible, diminished breath sounds due to poor inspiratory effort. No significant wheezing or rhonchi. HEART: Regular rate and rhythm. No significant murmurs appreciated ABDOMEN: Soft. Nondistended. Nontender. EXTREMITIES: No significant lower extremity edema noticed. NEUROLOGIC: Awake and alert. Oriented x 3. Detailed neuroexam was not performed ASSESSMENT: Triple-vessel disease status post three-vessel CABG, [place] to LAD, SVG to PDA, left radial to OM Status post left atrial appendage occlusion with atrial clip. Hypertension Hyperlipidemia Diabetes Obesity: BMI 34.4 PLAN: Aspirin 325 mg, Lipitor Metoprolol, amlodipine 2.5 mg Encourage incentive spirometer use Continue to monitor in ICU with supportive care Surgical team following, appreciate recommendations Objective - Vital Signs Vital signs: Vital Signs Temp 98.6 F 05/30/24 08:00 Pulse 76 05/30/24 11:00 Resp 16 05/30/24 11:00 BP 98/62 05/30/24 11:00 Pulse Ox 95 05/30/24 11:00 FiO2 60 05/29/24 18:08 Intake & Output 05/29/24 05/30/24 05/30/24 18:59 06:59 18:59 Intake Total 190.664 6771.723 557.319 Output Total 2258 1035 690 Balance -1835.626 477.723 -132.681 Weight 109.6 kg 109.6 kg Intake: IV 381 1462 552 0.9 150 600 240 ACETAMINOPHEN IV (For NPO 200 ) 1,000 mg In Empty Bag 1 bag @ 400 mls/hr IVPB Q6HR PEDRO Rx#:[id number] Albumin Human 5% 500 ml 250 250 In Empty Bag 1 bag @ 250 mls/hr IVPB ONCE ONE Rx#: [id number] CO/CI 170 260 20 Pressure Bag 9 102 42 ceFAZolin 2 gm In Sodium 50 Chloride 0.9% 50 ml @ 100 mls/hr IVPB ONCE ONE Rx# :[id number] Intake, IV Titration 41.374 50.723 5.319 Amount Clevidipine Butyrate 25 12.200 3.767 mg In Empty Bag 1 bag @ 1 MG/HR 2 mls/hr IV .Q24H PEDRO Rx#:[id number] Insulin Regular 100 unit 0.446 46.956 5.319 In Sodium Chloride 0.9% 100 ml @ Per Protocol IV .Q0M PEDRO Rx#:[id number] propofoL 1,000 mg In 28.728 Empty Bag 1 bag @ Titrate IV .Q0M PEDRO Rx#: [id number] Output: Chest Tube Drainage 295 335 60 Left Pleural Chest Tube 190 170 30 Mediastinal Chest Tubes 105 165 30 Drainage 58 20 Left Wrist 18 10 Right Calf 40 10 Urine 1305 680 630 Estimated Blood Loss 600 Other: Voiding Method Indwelling Catheter Indwelling Catheter Indwelling Catheter ABP, PAP, CO, CI - Last Documented Arterial Blood Pressure 107/98 Pulmonary Artery Pressure 23/9 Cardiac Output 5.2 Cardiac Index 2.3 - Labs CBC & Chem 7: 05/30/24 04:02 05/30/24 04:02 Labs: Abnormal Lab Results - Last 24 Hours (Table) 05/28/24 05/29/24 05/29/24 Range/Units 09:56 11:16 12:18 WBC (3.8-10.6) k/uL RBC (4.30-5.90) m/uL Hgb (13.0-17.5) gm/dL Hct (39.0-53.0) % Plt Count (150-450) k/uL Neutrophils # (1.3-7.7) k/uL Lymphocytes # (1.0-4.8) k/uL APTT (22.0-30.0) sec ABG pH (7.35-7.45) ABG pCO2 (35-45) mmHg ABG pO2 127 H 378 H (83-108) mmHg ABG HCO3 (21-25) mmol/L ABG Total CO2 (19-24) mmol/L ABG O2 Saturation 98.4 H 99.3 H (94-97) % ABG Hematocrit 30 L (34.0-46.0) % ABG Potassium (3.4-4.5) mmol/L ABG Ionized Calcium 4.0 L (4.5-5.3) mg/dL ABG Glucose 110 H 110 H (75-99) mg/dL Hemoglobin 9.6 L (13.0-17.5) gm/dL Chloride (98-107) mmol/L Glucose (74-99) mg/dL POC Glucose (mg/dL) (70-110) mg/dL Calcium (8.4-10.2) mg/dL AST (17-59) U/L Total Protein (6.3-8.2) g/dL Albumin (3.5-5.0) g/dL Arterial Blood Potassium (3.4-4.5) mmol/L Arterial Blood Glucose 110 H 110 H (75-99) mg/dL Crossmatch See Detail 05/29/24 05/29/24 05/29/24 Range/Units 12:49 13:27 14:08 WBC (3.8-10.6) k/uL RBC (4.30-5.90) m/uL Hgb (13.0-17.5) gm/dL Hct (39.0-53.0) % Plt Count (150-450) k/uL Neutrophils # (1.3-7.7) k/uL Lymphocytes # (1.0-4.8) k/uL APTT (22.0-30.0) sec ABG pH 7.34 L 7.34 L 7.29 L (7.35-7.45) ABG pCO2 46 H 51 H (35-45) mmHg ABG pO2 156 H 288 H 296 H (83-108) mmHg ABG HCO3 (21-25) mmol/L ABG Total CO2 (19-24) mmol/L ABG O2 Saturation 98.6 H 99.2 H 99.1 H (94-97) % ABG Hematocrit 29 L 29 L 29 L (34.0-46.0) % ABG Potassium 4.8 H 4.9 H (3.4-4.5) mmol/L ABG Ionized Calcium 4.2 L 4.2 L 4.2 L (4.5-5.3) mg/dL ABG Glucose 115 H 141 H 125 H (75-99) mg/dL Hemoglobin 9.5 L 9.3 L 9.6 L (13.0-17.5) gm/dL Chloride (98-107) mmol/L Glucose (74-99) mg/dL POC Glucose (mg/dL) (70-110) mg/dL Calcium (8.4-10.2) mg/dL AST (17-59) U/L Total Protein (6.3-8.2) g/dL Albumin (3.5-5.0) g/dL Arterial Blood Potassium 4.8 H 4.9 H (3.4-4.5) mmol/L Arterial Blood Glucose 115 H 141 H 125 H (75-99) mg/dL Crossmatch 05/29/24 05/29/24 05/29/24 Range/Units 14:59 16:04 16:37 WBC (3.8-10.6) k/uL RBC 3.82 L (4.30-5.90) m/uL Hgb 12.0 L D (13.0-17.5) gm/dL Hct 33.0 L (39.0-53.0) % Plt Count 84 L (150-450) k/uL Neutrophils # (1.3-7.7) k/uL Lymphocytes # (1.0-4.8) k/uL APTT (22.0-30.0) sec ABG pH 7.33 L 7.31 L (7.35-7.45) ABG pCO2 46 H 51 H (35-45) mmHg ABG pO2 209 H (83-108) mmHg ABG HCO3 26 H (21-25) mmol/L ABG Total CO2 27 H (19-24) mmol/L ABG O2 Saturation 97.3 H 99.8 H (94-97) % ABG Hematocrit 31 L (34.0-46.0) % ABG Potassium (3.4-4.5) mmol/L ABG Ionized Calcium (4.5-5.3) mg/dL ABG Glucose 111 H (75-99) mg/dL Hemoglobin 10.2 L 11.8 L (13.0-17.5) gm/dL Chloride (98-107) mmol/L Glucose (74-99) mg/dL POC Glucose (mg/dL) (70-110) mg/dL Calcium (8.4-10.2) mg/dL AST (17-59) U/L Total Protein (6.3-8.2) g/dL Albumin (3.5-5.0) g/dL Arterial Blood Potassium (3.4-4.5) mmol/L Arterial Blood Glucose 111 H (75-99) mg/dL Crossmatch 05/29/24 05/29/2405/29/24 Range/Units 16:37 16:37 16:58 WBC (3.8-10.6) k/uL RBC (4.30-5.90) m/uL Hgb (13.0-17.5) gm/dL Hct (39.0-53.0) % Plt Count (150-450) k/uL Neutrophils # (1.3-7.7) k/uL Lymphocytes # (1.0-4.8) k/uL APTT 36.0 H (22.0-30.0) sec ABG pH (7.35-7.45) ABG pCO2 (35-45) mmHg ABG pO2 (83-108) mmHg ABG HCO3 (21-25) mmol/L ABG Total CO2 (19-24) mmol/L ABG O2 Saturation (94-97) % ABG Hematocrit (34.0-46.0) % ABG Potassium (3.4-4.5) mmol/L ABG Ionized Calcium (4.5-5.3) mg/dL ABG Glucose (75-99) mg/dL Hemoglobin (13.0-17.5) gm/dL Chloride 111 H (98-107) mmol/L Glucose 100 H (74-99) mg/dL POC Glucose (mg/dL) 122 H (70-110) mg/dL Calcium 8.1 L (8.4-10.2) mg/dL AST (17-59) U/L Total Protein 4.9 L (6.3-8.2) g/dL Albumin 2.9 L (3.5-5.0) g/dL Arterial Blood Potassium (3.4-4.5) mmol/L Arterial Blood Glucose (75-99) mg/dL Crossmatch 05/29/24 05/29/24 05/29/24 Range/Units 17:55 18:55 18:55 WBC 12.5 H (3.8-10.6) k/uL RBC 4.18 L (4.30-5.90) m/uL Hgb 12.7 L (13.0-17.5) gm/dL Hct 36.9 L (39.0-53.0) % Plt Count 123 L (150-450) k/uL Neutrophils # 10.3 H (1.3-7.7) k/uL Lymphocytes # (1.0-4.8) k/uL APTT (22.0-30.0) sec ABG pH (7.35-7.45) ABG pCO2 (35-45) mmHg ABG pO2 64 L (83-108) mmHg ABG HCO3 (21-25) mmol/L ABG Total CO2 (19-24) mmol/L ABG O2 Saturation 92.0 L (94-97) % ABG Hematocrit (34.0-46.0) % ABG Potassium (3.4-4.5) mmol/L ABG Ionized Calcium (4.5-5.3) mg/dL ABG Glucose (75-99) mg/dL Hemoglobin 12.7 L (13.0-17.5) gm/dL Chloride (98-107) mmol/L Glucose (74-99) mg/dL POC Glucose (mg/dL) 157 H (70-110) mg/dL Calcium (8.4-10.2) mg/dL AST (17-59) U/L Total Protein (6.3-8.2) g/dL Albumin (3.5-5.0) g/dL Arterial Blood Potassium (3.4-4.5) mmol/L Arterial Blood Glucose (75-99) mg/dL Crossmatch 05/29/24 05/29/24 05/29/24 Range/Units 19:02 19:59 20:56 WBC (3.8-10.6) k/uL RBC (4.30-5.90) m/uL Hgb (13.0-17.5) gm/dL Hct (39.0-53.0) % Plt Count (150-450) k/uL Neutrophils # (1.3-7.7) k/uL Lymphocytes # (1.0-4.8) k/uL APTT (22.0-30.0) sec ABG pH (7.35-7.45) ABG pCO2 (35-45) mmHg ABG pO2 (83-108) mmHg ABG HCO3 (21-25) mmol/L ABG Total CO2 (19-24) mmol/L ABG O2 Saturation (94-97) % ABG Hematocrit (34.0-46.0) % ABG Potassium (3.4-4.5) mmol/L ABG Ionized Calcium (4.5-5.3) mg/dL ABG Glucose (75-99) mg/dL Hemoglobin (13.0-17.5) gm/dL Chloride (98-107) mmol/L Glucose (74-99) mg/dL POC Glucose (mg/dL) 157 H 168 H 160 H (70-110) mg/dL Calcium (8.4-10.2) mg/dL AST (17-59) U/L Total Protein (6.3-8.2) g/dL Albumin (3.5-5.0) g/dL Arterial Blood Potassium (3.4-4.5) mmol/L Arterial Blood Glucose (75-99) mg/dL Crossmatch 05/29/24 05/29/24 05/29/24 Range/Units 21:25 22:02 23:01 WBC 13.3 H (3.8-10.6) k/uL RBC 4.19 L (4.30-5.90) m/uL Hgb 12.7 L (13.0-17.5) gm/dL Hct 37.0 L (39.0-53.0) % Plt Count 118 L (150-450) k/uL Neutrophils # 11.4 H (1.3-7.7) k/uL Lymphocytes # (1.0-4.8) k/uL APTT (22.0-30.0) sec ABG pH (7.35-7.45) ABG pCO2 (35-45) mmHg ABG pO2 (83-108) mmHg ABG HCO3 (21-25) mmol/L ABG Total CO2 (19-24) mmol/L ABG O2 Saturation (94-97) % ABG Hematocrit (34.0-46.0) % ABG Potassium (3.4-4.5) mmol/L ABG Ionized Calcium (4.5-5.3) mg/dL ABG Glucose (75-99) mg/dL Hemoglobin (13.0-17.5) gm/dL Chloride (98-107) mmol/L Glucose (74-99) mg/dL POC Glucose (mg/dL) 167 H 145 H (70-110) mg/dL Calcium (8.4-10.2) mg/dL AST (17-59) U/L Total Protein (6.3-8.2) g/dL Albumin (3.5-5.0) g/dL Arterial Blood Potassium (3.4-4.5) mmol/L Arterial Blood Glucose (75-99) mg/dL Crossmatch 05/30/24 05/30/24 05/30/24 Range/Units 00:04 00:59 02:00 WBC (3.8-10.6) k/uL RBC (4.30-5.90) m/uL Hgb (13.0-17.5) gm/dL Hct (39.0-53.0) % Plt Count (150-450) k/uL Neutrophils # (1.3-7.7) k/uL Lymphocytes # (1.0-4.8) k/uL APTT (22.0-30.0) sec ABG pH (7.35-7.45) ABG pCO2 (35-45) mmHg ABG pO2 (83-108) mmHg ABG HCO3 (21-25) mmol/L ABG Total CO2 (19-24) mmol/L ABG O2 Saturation (94-97) % ABG Hematocrit (34.0-46.0) % ABG Potassium (3.4-4.5) mmol/L ABG Ionized Calcium (4.5-5.3) mg/dL ABG Glucose (75-99) mg/dL Hemoglobin (13.0-17.5) gm/dL Chloride (98-107) mmol/L Glucose (74-99) mg/dL POC Glucose (mg/dL) 139 H 126 H 132 H (70-110) mg/dL Calcium (8.4-10.2) mg/dL AST (17-59) U/L Total Protein (6.3-8.2) g/dL Albumin (3.5-5.0) g/dL Arterial Blood Potassium (3.4-4.5) mmol/L Arterial Blood Glucose (75-99) mg/dL Crossmatch 05/30/24 05/30/24 05/30/24 Range/Units 02:56 04:02 04:02 WBC (3.8-10.6) k/uL RBC 3.76 L (4.30-5.90) m/uL Hgb 11.3 L (13.0-17.5) gm/dL Hct 32.8 L (39.0-53.0) % Plt Count 97 L (150-450) k/uL Neutrophils # 8.1 H (1.3-7.7) k/uL Lymphocytes # 0.8 L (1.0-4.8) k/uL APTT (22.0-30.0) sec ABG pH (7.35-7.45) ABG pCO2 (35-45) mmHg ABG pO2 (83-108) mmHg ABG HCO3 (21-25) mmol/L ABG Total CO2 (19-24) mmol/L ABG O2 Saturation (94-97) % ABG Hematocrit (34.0-46.0) % ABG Potassium (3.4-4.5) mmol/L ABG Ionized Calcium (4.5-5.3) mg/dL ABG Glucose (75-99) mg/dL Hemoglobin (13.0-17.5) gm/dL Chloride 110 H (98-107) mmol/L Glucose 104 H (74-99) mg/dL POC Glucose (mg/dL) 118 H (70-110) mg/dL Calcium 8.3 L (8.4-10.2) mg/dL AST 101 H (17-59) U/L Total Protein 5.3 L (6.3-8.2) g/dL Albumin 3.2 L (3.5-5.0) g/dL Arterial Blood Potassium (3.4-4.5) mmol/L Arterial Blood Glucose (75-99) mg/dL Crossmatch 05/30/24 05/30/24 05/30/24 Range/Units 04:02 04:57 05:53 WBC (3.8-10.6) k/uL RBC (4.30-5.90) m/uL Hgb (13.0-17.5) gm/dL Hct (39.0-53.0) % Plt Count (150-450) k/uL Neutrophils # (1.3-7.7) k/uL Lymphocytes # (1.0-4.8) k/uL APTT (22.0-30.0) sec ABG pH (7.35-7.45) ABG pCO2 (35-45) mmHg ABG pO2 (83-108) mmHg ABG HCO3 (21-25) mmol/L ABG Total CO2 (19-24) mmol/L ABG O2 Saturation (94-97) % ABG Hematocrit (34.0-46.0) % ABG Potassium (3.4-4.5) mmol/L ABG Ionized Calcium (4.5-5.3) mg/dL ABG Glucose (75-99) mg/dL Hemoglobin (13.0-17.5) gm/dL Chloride (98-107) mmol/L Glucose (74-99) mg/dL POC Glucose (mg/dL) 111 H 134 H 153 H (70-110) mg/dL Calcium (8.4-10.2) mg/dL AST (17-59) U/L Total Protein (6.3-8.2) g/dL Albumin (3.5-5.0) g/dL Arterial Blood Potassium (3.4-4.5) mmol/L Arterial Blood Glucose (75-99) mg/dL Crossmatch 05/30/24 05/30/24 05/30/24 Range/Units 06:53 08:02 10:57 WBC (3.8-10.6) k/uL RBC (4.30-5.90) m/uL Hgb (13.0-17.5) gm/dL Hct (39.0-53.0) % Plt Count (150-450) k/uL Neutrophils # (1.3-7.7) k/uL Lymphocytes # (1.0-4.8) k/uL APTT (22.0-30.0) sec ABG pH (7.35-7.45) ABG pCO2 (35-45) mmHg ABG pO2 (83-108) mmHg ABG HCO3 (21-25) mmol/L ABG Total CO2 (19-24) mmol/L ABG O2 Saturation (94-97) % ABG Hematocrit (34.0-46.0) % ABG Potassium (3.4-4.5) mmol/L ABG Ionized Calcium (4.5-5.3) mg/dL ABG Glucose (75-99) mg/dL Hemoglobin (13.0-17.5) gm/dL Chloride (98-107) mmol/L Glucose (74-99) mg/dL POC Glucose (mg/dL) 139 H 120 H 115 H (70-110) mg/dL Calcium (8.4-10.2) mg/dL AST (17-59) U/L Total Protein (6.3-8.2) g/dL Albumin (3.5-5.0) g/dL Arterial Blood Potassium (3.4-4.5) mmol/L Arterial Blood Glucose (75-99) mg/dL Crossmatch Microbiology - Last 24 Hours (Table) 05/28/24 05:55 Nasal Screen MRSA/MSSA - Final Nasal Swab
[2024-05-30 14:02] LABS: Glucose,Whole Blood 112 mg/dL (70-110)
[2024-05-30] MEDS: ACETAMINOPHEN TAB 325 MG TAB PO PRN (14:11)
[2024-05-30] MEDS: methocarbamoL 500 MG TAB PO SCH (14:16)
--- NOTE | 2024-05-30 14:41 | P.PN ---
Subjective Progress Note Date: 05/30/24 This is a 59-year-old male patient, with an abnormal stress test involving the inferolateral leads and the patient underwent a cardiac catheterization the patient was found to have triple-vessel coronary artery disease. LV function is preserved with an ejection fraction of 55 to 60% with mild mitral and trace tricuspid regurgitation. He is known to have hypertension hyperlipidemia and borderline diabetes mellitus. He is a non-smoker and is morbidly obese. His body mass index is 34.4. The patient is scheduled to undergo a coronary artery bypass surgery in a.m. His CAT scan of the chest was completed on 05/27/2024 and the patient has moderate amount of calcification of the aortic arch. Moderate coronary artery calcification. Moderate aortic valve calcification. No evidence of any focal consolidation pneumothorax or pulmonary nodules. The patient's pulse ox currently is 98% on room air oxygen. He is hemodynamically stable. His labs was reviewed and the WBC count is at 6 with a hemoglobin 15.3, platelet count is at 136, BUN is 11 with a creatinine of 1.3 and a sodium level is 141. GFR is currently at 62. Normal LFTs. Denies having any chest pain. Carotid Doppler showed mild atherosclerotic plaques, no hemodynamically significant stenosis. 05/29/2024, the patient is arriving to the intensive care unit, intubated and mechanically ventilated. The patient underwent coronary bypass surgery with DE LA VEGA to LAD, radial to OM and SVG to PDA PDA. Currently, intermittently tachyca rdic, propofol running at 30 mcg/kg/min. Hemodynamically stable. While on the mechanical ventilator, assist-control mode with rate of 12, tidal volume of 500, FiO2 of 100% with a PEEP of 10. Blood gas showed a pH of 7.3 with a pCO2 of 51 and pO2 of 209. Chest x-ray shows adequate expansion of both lungs. No evidence of any pneumothorax. The patient has tubes x 2 in the mediastinum and 1 in the left pleural. Performed the tubes are minimal in the order of less than 200 cc from the left and less than 100 from the right. No evidence of any air leak. No evidence of any pneumothorax. Hemodynamically stable, currently on nitroglycerin drip running at 10 mcg/min. He is producing adequate amount of urine output. Cardiac output is at 4.6 with an index of 2.1. PA pressures of 40/28. The right radial artery is malfunctioning. The blood work is still pending for now. No other significant events otherwise reported. On 05/30/2024, the patient is being seen for a follow-up. The patient was weaned off the mechanical ventilator and the patient was extubated yesterday without any major difficulties and the patient is currently postop day #1 following three-vessel bypass surgery. He is currently on 2 L of oxygen by nasal cannula. Cardiac rhythm is sinus. Cardiac output is 5.2 with an index of 2.3. PA pressures are 23/9 with a CBV of 4. Nitroglycerin is running at 5 mcg/min and the patient remains on insulin drip at 3 units an hour. Mediastinal chest tube has produced 90 cc over the past 8 hours, to 50 cc over the past 24 hours, left lower chest tube has produced 130s over the past 8 hours and 350 cc over the past 24 hours. The patient is currently on no pressors. Able to sit up on the chair and you will be ambulating soon. Hemoglobin is 11.3, the white cell count is at 9.4, the sodium levels at 138, BUN is 12 with a creatinine of 1.08 and a serum bicarb is at 23. LFTs are normal. Awake and alert and communicating. Pain is under adequate control and is using incentive barometer. Objective - Vital Signs Vital signs: Vital Signs Temp 98.6 F 05/30/24 08:00 Pulse 80 05/30/24 08:30 Resp 17 05/30/24 08:30 BP 103/61 05/30/24 06:30 Pulse Ox 94 L 05/30/24 08:30 FiO2 60 05/29/24 18:08 Intake & Output 05/29/24 05/30/24 05/30/24 18:59 06:59 18:59 Intake Total 782.612 3666.723 393.319 Output Total 2258 1035 90 Balance -1835.626 477.723 303.319 Weight 109.6 kg Intake: IV 381 1462 388 0.9 150 600 100 ACETAMINOPHEN IV (For NPO 200 ) 1,000 mg In Empty Bag 1 bag @ 400 mls/hr IVPB Q6HR [facility] Rx#:[id number] Albumin Human 5% 500 ml 250 250 In Empty Bag 1 bag @ 250 mls/hr IVPB ONCE ONE Rx#: [id number] CO/CI 170 260 20 Pressure Bag 9 102 18 ceFAZolin 2 gm In Sodium 50 Chloride 0.9% 50 ml @ 100 mls/hr IVPB ONCE ONE Rx# :[id number] Intake, IV Titration 41.374 50.723 5.319 Amount Clevidipine Butyrate 25 12.200 3.767 mg In Empty Bag 1 bag @ 1 MG/HR 2 mls/hr IV .Q24H [facility] Rx#:[id number] Insulin Regular 100 unit 0.446 46.956 5.319 In Sodium Chloride 0.9% 100 ml @ Per Protocol IV .Q0M [facility] Rx#:[id number] propofoL 1,000 mg In 28.728 Empty Bag 1 bag @ Titrate IV .Q0M [facility] Rx#: [id number] Output: Chest Tube Drainage 295 335 0 Left Pleural Chest Tube 190 170 0 Mediastinal Chest Tubes 105 165 0 Drainage 58 20 Left Wrist 18 10 Right Calf 40 10 Urine 1305 680 90 Estimated Blood Loss 600 Other: Voiding Method Indwelling Catheter Indwelling Catheter ABP, PAP, CO, CI - Last Documented Arterial Blood Pressure 111/55 Pulmonary Artery Pressure 24/14 Cardiac Output 5.2 Cardiac Index 2.3 - Exam The patient appeared well nourished and normally developed. Vital signs as documented. The patient awake and alert on 2 L of oxygen by nasal cannula. Orotracheal and orogastric both in place. The patient has a right IJ Tennille-Shlomo catheter in place. Head exam is unremarkable. No scleral icterus or corneal arcus noted. Neck is without jugular venous distension, thyromegaly, or carotid bruits. Carotid upstrokes are brisk bilaterally. Lungs are clear to auscultation and percussion. The patient has a mediastinal and left pleural chest tube. Cardiac exam reveals the PMI to be normally sized and situated. Rhythm is regular. First and second heart sounds normal. No murmurs, rubs or gallops. The patient has an intrinsic normal sinus rhythm. Abdominal exam reveals normal bowel sounds, no masses, no organomegaly and no ao rtic enlargement. Extremities are nonedematous and both femoral and pedal pulses are normal. Clean and the patient has a LANIE drain in the surgical bed. Lower extremities show adequate pulses and the patient also has a LANIE drain in his right lower extremity wounds. Examination of the skin revealed no evidence of significant rashes, suspicious appearing nevi or other concern the surgical wound site over the left upper extremity is ing lesions. Neurologically, the patient is awake and alert and the patient does not have any focal neurological deficit. Cranial nerves are essentially intact. - Labs CBC & Chem 7: 05/30/24 04:02 05/30/24 04:02 Labs: Abnormal Lab Results - Last 24 Hours (Table) 05/28/24 05/29/24 05/29/24 Range/Units 09:56 09:03 11:16 WBC (3.8-10.6) k/uL RBC (4.30-5.90) m/uL Hgb (13.0-17.5) gm/dL Hct (39.0-53.0) % Plt Count (150-450) k/uL Neutrophils # (1.3-7.7) k/uL Lymphocytes # (1.0-4.8) k/uL APTT (22.0-30.0) sec ABG pH (7.35-7.45) ABG pCO2 (35-45) mmHg ABG pO2 291 H 127 H (83-108) mmHg ABG HCO3 (21-25) mmol/L ABG Total CO2 (19-24) mmol/L ABG O2 Saturation 99.2 H 98.4 H (94-97) % ABG Hematocrit (34.0-46.0) % ABG Potassium (3.4-4.5) mmol/L ABG Ionized Calcium (4.5-5.3) mg/dL ABG Glucose 110 H (75-99) mg/dL Hemoglobin (13.0-17.5) gm/dL Chloride (98-107) mmol/L Glucose (74-99) mg/dL POC Glucose (mg/dL) (70-110) mg/dL Calcium (8.4-10.2) mg/dL AST (17-59) U/L Total Protein (6.3-8.2) g/dL Albumin (3.5-5.0) g/dL Arterial Blood Potassium (3.4-4.5) mmol/L Arterial Blood Glucose 110 H (75-99) mg/dL Crossmatch See Detail 05/29/24 05/29/24 05/29/24 Range/Units 12:18 12:49 13:27 WBC (3.8-10.6) k/uL RBC (4.30-5.90) m/uL Hgb (13.0-17.5) gm/dL Hct (39.0-53.0) % Plt Count (150-450) k/uL Neutrophils # (1.3-7.7) k/uL Lymphocytes # (1.0-4.8) k/uL APTT (22.0-30.0) sec ABG pH 7.34 L 7.34 L (7.35-7.45) ABG pCO2 46 H (35-45) mmHg ABG pO2 378 H 156 H 288 H (83-108) mmHg ABG HCO3 (21-25) mmol/L ABG Total CO2 (19-24) mmol/L ABG O2 Saturation 99.3 H 98.6 H 99.2 H (94-97) % ABG Hematocrit 30 L 29 L 29 L (34.0-46.0) % ABG Potassium 4.8 H 4.9 H (3.4-4.5) mmol/L ABG Ionized Calcium 4.0 L 4.2 L 4.2 L (4.5-5.3) mg/dL ABG Glucose 110 H 115 H 141 H (75-99) mg/dL Hemoglobin 9.6 L 9.5 L 9.3 L (13.0-17.5) gm/dL Chloride (98-107) mmol/L Glucose (74-99) mg/dL POC Glucose (mg/dL) (70-110) mg/dL Calcium (8.4-10.2) mg/dL AST (17-59) U/L Total Protein (6.3-8.2) g/dL Albumin (3.5-5.0) g/dL Arterial Blood Potassium 4.8 H 4.9 H (3.4-4.5) mmol/L Arterial Blood Glucose 110 H 115 H 141 H (75-99) mg/dL Crossmatch 05/29/24 05/29/24 05/29/24 Range/Units 14:08 14:59 16:04 WBC (3.8-10.6) k/uL RBC (4.30-5.90) m/uL Hgb (13.0-17.5) gm/dL Hct (39.0-53.0) % Plt Count (150-450) k/uL Neutrophils # (1.3-7.7) k/uL Lymphocytes # (1.0-4.8) k/uL APTT (22.0-30.0) sec ABG pH 7.29 L 7.33 L 7.31 L (7.35-7.45) ABG pCO2 51 H 46 H 51 H (35-45) mmHg ABG pO2 296 H 209 H (83-108) mmHg ABG HCO3 26 H (21-25) mmol/L ABG Total CO2 27 H (19-24) mmol/L ABG O2 Saturation 99.1 H 97.3 H 99.8 H (94-97) % ABG Hematocrit 29 L 31 L (34.0-46.0) % ABG Potassium (3.4-4.5) mmol/L ABG Ionized Calcium 4.2 L (4.5-5.3) mg/dL ABG Glucose 125 H 111 H (75-99) mg/dL Hemoglobin 9.6 L 10.2 L 11.8 L (13.0-17.5) gm/dL Chloride (98-107) mmol/L Glucose (74-99) mg/dL POC Glucose (mg/dL) (70-110) mg/dL Calcium (8.4-10.2) mg/dL AST (17-59) U/L Total Protein (6.3-8.2) g/dL Albumin (3.5-5.0) g/dL Arterial Blood Potassium (3.4-4.5) mmol/L Arterial Blood Glucose 125 H 111 H (75-99) mg/dL Crossmatch 05/29/24 05/29/24 05/29/24 Range/Units 16:37 16:37 16:37 WBC (3.8-10.6) k/uL RBC 3.82 L (4.30-5.90) m/uL Hgb 12.0 L D (13.0-17.5) gm/dL Hct 33.0 L (39.0-53.0) % Plt Count 84 L (150-450) k/uL Neutrophils # (1.3-7.7) k/uL Lymphocytes # (1.0-4.8) k/uL APTT 36.0 H (22.0-30.0) sec ABG pH (7.35-7.45) ABG pCO2 (35-45) mmHg ABG pO2 (83-108) mmHg ABG HCO3 (21-25) mmol/L ABG Total CO2 (19-24) mmol/L ABG O2 Saturation (94-97) % ABG Hematocrit (34.0-46.0) % ABG Potassium (3.4-4.5) mmol/L ABG Ionized Calcium (4.5-5.3) mg/dL ABG Glucose (75-99) mg/dL Hemoglobin (13.0-17.5) gm/dL Chloride 111 H (98-107) mmol/L Glucose 100 H (74-99) mg/dL POC Glucose (mg/dL) (70-110) mg/dL Calcium 8.1 L (8.4-10.2) mg/dL AST (17-59) U/L Total Protein 4.9 L (6.3-8.2) g/dL Albumin 2.9 L (3.5-5.0) g/dL Arterial Blood Potassium (3.4-4.5) mmol/L Arterial Blood Glucose (75-99) mg/dL Crossmatch 05/29/24 05/29/24 05/29/24 Range/Units 16:58 17:55 18:55 WBC (3.8-10.6) k/uL RBC (4.30-5.90) m/uL Hgb (13.0-17.5) gm/dL Hct (39.0-53.0) % Plt Count (150-450) k/uL Neutrophils # (1.3-7.7) k/uL Lymphocytes # (1.0-4.8) k/uL APTT (22.0-30.0) sec ABG pH (7.35-7.45) ABG pCO2 (35-45) mmHg ABG pO2 64 L (83-108) mmHg ABG HCO3 (21-25) mmol/L ABG Total CO2 (19-24) mmol/L ABG O2 Saturation 92.0 L (94-97) % ABG Hematocrit (34.0-46.0) % ABG Potassium (3.4-4.5) mmol/L ABG Ionized Calcium (4.5-5.3) mg/dL ABG Glucose (75-99) mg/dL Hemoglobin 12.7 L (13.0-17.5) gm/dL Chloride (98-107) mmol/L Glucose (74-99) mg/dL POC Glucose (mg/dL) 122 H 157 H (70-110) mg/dL Calcium (8.4-10.2) mg/dL AST (17-59) U/L Total Protein (6.3-8.2) g/dL Albumin (3.5-5.0) g/dL Arterial Blood Potassium (3.4-4.5) mmol/L Arterial Blood Glucose (75-99) mg/dL Crossmatch 05/29/24 05/29/24 05/29/24 Range/Units 18:55 19:02 19:59 WBC 12.5 H (3.8-10.6) k/uL RBC 4.18 L (4.30-5.90) m/uL Hgb 12.7 L (13.0-17.5) gm/dL Hct 36.9 L (39.0-53.0) % Plt Count 123 L (150-450) k/uL Neutrophils # 10.3 H (1.3-7.7) k/uL Lymphocytes # (1.0-4.8) k/uL APTT (22.0-30.0) sec ABG pH (7.35-7.45) ABG pCO2 (35-45) mmHg ABG pO2 (83-108) mmHg ABG HCO3 (21-25) mmol/L ABG Total CO2 (19-24) mmol/L ABG O2 Saturation (94-97) % ABG Hematocrit (34.0-46.0) % ABG Potassium (3.4-4.5) mmol/L ABG Ionized Calcium (4.5-5.3) mg/dL ABG Glucose (75-99) mg/dL Hemoglobin (13.0-17.5) gm/dL Chloride (98-107) mmol/L Glucose (74-99) mg/dL POC Glucose (mg/dL) 157 H 168 H (70-110) mg/dL Calcium (8.4-10.2) mg/dL AST (17-59) U/L Total Protein (6.3-8.2) g/dL Albumin (3.5-5.0) g/dL Arterial Blood Potassium (3.4-4.5) mmol/L Arterial Blood Glucose (75-99) mg/dL Crossmatch 05/29/24 05/29/24 05/29/24 Range/Units 20:56 21:25 22:02 WBC 13.3 H (3.8-10.6) k/uL RBC 4.19 L (4.30-5.90) m/uL Hgb 12.7 L (13.0-17.5) gm/dL Hct 37.0 L (39.0-53.0) % Plt Count 118 L (150-450) k/uL Neutrophils # 11.4 H (1.3-7.7) k/uL Lymphocytes # (1.0-4.8) k/uL APTT (22.0-30.0) sec ABG pH (7.35-7.45) ABG pCO2 (35-45) mmHg ABG pO2 (83-108) mmHg ABG HCO3 (21-25) mmol/L ABG Total CO2 (19-24) mmol/L ABG O2 Saturation (94-97) % ABG Hematocrit (34.0-46.0) % ABG Potassium (3.4-4.5) mmol/L ABG Ionized Calcium (4.5-5.3) mg/dL ABG Glucose (75-99) mg/dL Hemoglobin (13.0-17.5) gm/dL Chloride (98-107) mmol/L Glucose (74-99) mg/dL POC Glucose (mg/dL) 160 H 167 H (70-110) mg/dL Calcium (8.4-10.2) mg/dL AST (17-59) U/L Total Protein (6.3-8.2) g/dL Albumin (3.5-5.0) g/dL Arterial Blood Potassium (3.4-4.5) mmol/L Arterial Blood Glucose (75-99) mg/dL Crossmatch 05/29/24 05/30/24 05/30/24 Range/Units 23:01 00:04 00:59 WBC (3.8-10.6) k/uL RBC (4.30-5.90) m/uL Hgb (13.0-17.5) gm/dL Hct (39.0-53.0) % Plt Count (150-450) k/uL Neutrophils # (1.3-7.7) k/uL Lymphocytes # (1.0-4.8) k/uL APTT (22.0-30.0) sec ABG pH (7.35-7.45) ABG pCO2 (35-45) mmHg ABG pO2 (83-108) mmHg ABG HCO3 (21-25) mmol/L ABG Total CO2 (19-24) mmol/L ABG O2 Saturation (94-97) % ABG Hematocrit (34.0-46.0) % ABG Potassium (3.4-4.5) mmol/L ABG Ionized Calcium (4.5-5.3) mg/dL ABG Glucose (75-99) mg/dL Hemoglobin (13.0-17.5) gm/dL Chloride (98-107) mmol/L Glucose (74-99) mg/dL POC Glucose (mg/dL) 145 H 139 H 126 H (70-110) mg/dL Calcium (8.4-10.2) mg/dL AST (17-59) U/L Total Protein (6.3-8.2) g/dL Albumin (3.5-5.0) g/dL Arterial Blood Potassium (3.4-4.5) mmol/L Arterial Blood Glucose (75-99) mg/dL Crossmatch 05/30/24 05/30/24 05/30/24 Range/Units 02:00 02:56 04:02 WBC (3.8-10.6) k/uL RBC 3.76 L (4.30-5.90) m/uL Hgb 11.3 L (13.0-17.5) gm/dL Hct 32.8 L (39.0-53.0) % Plt Count 97 L (150-450) k/uL Neutrophils # 8.1 H (1.3-7.7) k/uL Lymphocytes # 0.8 L (1.0-4.8) k/uL APTT (22.0-30.0) sec ABG pH (7.35-7.45) ABG pCO2 (35-45) mmHg ABG pO2 (83-108) mmHg ABG HCO3 (21-25) mmol/L ABG Total CO2 (19-24) mmol/L ABG O2 Saturation (94-97) % ABG Hematocrit (34.0-46.0) % ABG Potassium (3.4-4.5) mmol/L ABG Ionized Calcium (4.5-5.3) mg/dL ABG Glucose (75-99) mg/dL Hemoglobin (13.0-17.5) gm/dL Chloride (98-107) mmol/L Glucose (74-99) mg/dL POC Glucose (mg/dL) 132 H 118 H (70-110) mg/dL Calcium (8.4-10.2) mg/dL AST (17-59) U/L Total Protein (6.3-8.2) g/dL Albumin (3.5-5.0) g/dL Arterial Blood Potassium (3.4-4.5) mmol/L Arterial Blood Glucose (75-99) mg/dL Crossmatch 05/30/24 05/30/24 05/30/24 Range/Units 04:02 04:02 04:57 WBC (3.8-10.6) k/uL RBC (4.30-5.90) m/uL Hgb (13.0-17.5) gm/dL Hct (39.0-53.0) % Plt Count (150-450) k/uL Neutrophils # (1.3-7.7) k/uL Lymphocytes # (1.0-4.8) k/uL APTT (22.0-30.0) sec ABG pH (7.35-7.45) ABG pCO2 (35-45) mmHg ABG pO2 (83-108) mmHg ABG HCO3 (21-25) mmol/L ABG Total CO2 (19-24) mmol/L ABG O2 Saturation (94-97) % ABG Hematocrit (34.0-46.0) % ABG Potassium (3.4-4.5) mmol/L ABG Ionized Calcium (4.5-5.3) mg/dL ABG Glucose (75-99) mg/dL Hemoglobin (13.0-17.5) gm/dL Chloride 110 H (98-107) mmol/L Glucose 104 H (74-99) mg/dL POC Glucose (mg/dL) 111 H 134 H (70-110) mg/dL Calcium 8.3 L (8.4-10.2) mg/dL AST 101 H (17-59) U/L Total Protein 5.3 L (6.3-8.2) g/dL Albumin 3.2 L (3.5-5.0) g/dL Arterial Blood Potassium (3.4-4.5) mmol/L Arterial Blood Glucose (75-99) mg/dL Crossmatch 05/30/24 05/30/24 05/30/24 Range/Units 05:53 06:53 08:02 WBC (3.8-10.6) k/uL RBC (4.30-5.90) m/uL Hgb (13.0-17.5) gm/dL Hct (39.0-53.0) % Plt Count (150-450) k/uL Neutrophils # (1.3-7.7) k/uL Lymphocytes # (1.0-4.8) k/uL APTT (22.0-30.0) sec ABG pH (7.35-7.45) ABG pCO2 (35-45) mmHg ABG pO2 (83-108) mmHg ABG HCO3 (21-25) mmol/L ABG Total CO2 (19-24) mmol/L ABG O2 Saturation (94-97) % ABG Hematocrit (34.0-46.0) % ABG Potassium (3.4-4.5) mmol/L ABG Ionized Calcium (4.5-5.3) mg/dL ABG Glucose (75-99) mg/dL Hemoglobin (13.0-17.5) gm/dL Chloride (98-107) mmol/L Glucose (74-99) mg/dL POC Glucose (mg/dL) 153 H 139 H 120 H (70-110) mg/dL Calcium (8.4-10.2) mg/dL AST (17-59) U/L Total Protein (6.3-8.2) g/dL Albumin (3.5-5.0) g/dL Arterial Blood Potassium (3.4-4.5) mmol/L Arterial Blood Glucose (75-99) mg/dL Crossmatch Microbiology - Last 24 Hours (Table) 05/28/24 05:55 Nasal Screen MRSA/MSSA - Final Nasal Swab Assessment and Plan Plan: Symptomatic multivessel coronary artery disease. Cardiac catheterization done 05/27/2024 showed two-vessel coronary artery disease including ostial circumflex and LAD with distal left main stenosis. The patient underwent a three-vessel bypass surgery with DE LA VEGA to LAD, radial to OM and SVG to PDA. Currently postop day #1. Hemodynamically stable, on nitroglycerin drip for blood pressure control running at 5 mcg/min. Postthoracotomy, chest x-ray shows no complications. The patient was extubated without any major difficulties and the patient is currently on 2 L of oxygen by nasal cannula. Output from the chest tube was noted and the patient will have the chest tube in place for another 24 hours. Diabetes mellitus type 2, currently on sliding scale insulin coverage. Insulin drip at 3 units an hour Hypertension Hyperlipidemia Osteoarthritis Obesity with a BMI of 34. Plan Incentive spirometer Currently on 2 L of oxygen nasal cannula Monitor hemodynamics Monitor cardiac output and index Discontinue nitroglycerin drip Cardiac rhythm is sinus, backup pacemaker at rate of 50 Insulin drip Aspirin and Plavix Metoprolol to be started at a dose of 12.5 mg twice a day and amlodipine 2.5 mg p.o. daily. Ambulate the patient Will continue to follow
--- NOTE | 2024-05-30 15:56 | P.PN ---
Subjective Progress Note Date: 05/30/24 Subjective: Patient seen and examined at the bedside. No acute events overnight. Patient is extubated and sitting upright. Post op day 1 All Systems reviewed and pertinent positives and negatives noted in HPI, all other symptoms are negative Objective: Vital signs reviewed. General: extubated, sitting upright, not in acute distress Derm: no unusual rashes/lesions, warm, surgical sites clean and intact Head: atraumatic, normocephalic, symmetric Eyes: anicteric sclera, pupils equal round reactive to light ENT: Nose and ears atraumatic Mouth: no lip lesion, mucus membranes moist Cardiovascular: S1S2 reg, no murmur, positive dorsalis pedis pulse bilateral, no edema Lungs: CTA bilateral, no rhonchi, no rales, no accessory muscle use, on room air Abdominal: soft, nondistended, no guarding Ext: no gross muscle atrophy, no contractures, Neuro: CN 1-12 are grossly intact Psych: A&O x 3, calm Data reviewed today: Labs: WBC 9.4, hemoglobin 11.3, platelet count 97, sodium 138, potassium 4.1, chloride 110, bicarb 23, BUN 12, creatinine 1.08, glucose 104, calcium 8.3 Images: Chest x-ray independently interpreted, postoperative changes Assessment and Plan: 59-year-old male with history of type 2 diabetes, hyperlipidemia, and hypertension initially came to the ER with a abnormal stress test done outpatient cardiology. Patient is admitted for unstable angina with cardiac catheterization showing multivessel CAD. CABG on 05/29/2024, postop day 1. #CAD status post CABG on 05/29/2024 #Postoperative anemia, anticipated #Hypertension Cardiothoracic surgery note reviewed,, nitroglycerin drip discontinued, started on amlodipine 2.5 daily, Lasix 20 IV once Cardiology on board, recs appreciated Aspirin 325 mg p.o. daily and Plavix 75 mg p.o. daily Lipitor 80 mg p.o. at bedtime Metoprolol 12.5 mg p.o. twice daily Echocardiogram shows LVEF of 55 to 60% with normal LV function Continue cardiac monitoring Monitor CBC and BMP Encourage incentive spirometry Cardiology and pulmonology note reviewed, continue current therapy #Type 2 diabetes HbA1c 6.6 Continue with insulin drip, fingersticks every hour -Transition to subcu insulin once patient able to tolerate oral intake Chronic condition: Gout: Hold colchicine, Probenecid Thank you for allowing us to participate in the care of this pleasant patient. Do not hesitate to contact us with questions. Someone can be reached from the [facility] hospitalist group all hours of the day at [phone] or via perfect serve. Objective - Vital Signs Vital signs: Vital Signs Temp 98.6 F 05/30/24 08:00 Pulse 83 05/30/24 12:54 Resp 16 05/30/24 11:00 BP 98/62 05/30/24 11:00 Pulse Ox 95 05/30/24 11:00 FiO2 60 05/29/24 18:08 Intake & Output 05/29/24 05/30/24 05/30/24 18:59 06:59 18:59 Intake Total 567.742 3096.723 785.869 Output Total 2258 1035 1010 Balance -1835.626 477.723 -224.131 Weight 109.6 kg 109.6 kg Intake: IV 381 1462 727 0.9 150 600 400 ACETAMINOPHEN IV (For NPO 200 ) 1,000 mg In Empty Bag 1 bag @ 400 mls/hr IVPB Q6HR [facility] Rx#:[id number] Albumin Human 5% 500 ml 250 250 In Empty Bag 1 bag @ 250 mls/hr IVPB ONCE ONE Rx#: [id number] CO/CI 170 260 20 Pressure Bag 9 102 57 ceFAZolin 2 gm In Sodium 50 Chloride 0.9% 50 ml @ 100 mls/hr IVPB ONCE ONE Rx# :[id number] Intake, IV Titration 41.374 50.723 58.869 Amount Clevidipine Butyrate 25 12.200 3.767 mg In Empty Bag 1 bag @ 1 MG/HR 2 mls/hr IV .Q24H [facility] Rx#:[id number] Insulin Regular 100 unit 0.446 46.956 5.319 In Sodium Chloride 0.9% 100 ml @ Per Protocol IV .Q0M [facility] Rx#:[id number] Nitroglycerin-D5w Pmx 50 53.55 mg In Dextrose/Water 1 250ml.bag @ 5 MCG/MIN 1.5 mls/hr IV .Q24H [facility] Rx#: [id number] propofoL 1,000 mg In 28.728 Empty Bag 1 bag @ Titrate IV .Q0M [facility] Rx#: [id number] Output: Chest Tube Drainage 295 335 110 Left Pleural Chest Tube 190 170 50 Mediastinal Chest Tubes 105 165 60 Drainage 58 20 Left Wrist 18 10 Right Calf 40 10 Urine 1305 680 900 Estimated Blood Loss 600 Other: Voiding Method Indwelling Catheter Indwelling Catheter Indwelling Catheter ABP, PAP, CO, CI - Last Documented Arterial Blood Pressure 107/98 Pulmonary Artery Pressure 23/9 Cardiac Output 5.2 Cardiac Index 2.3 - Labs CBC & Chem 7: 05/30/24 04:02 05/30/24 04:02 Labs: Abnormal Lab Results - Last 24 Hours (Table) 05/28/24 05/29/24 05/29/24 Range/Units 09:56 16:04 16:37 WBC (3.8-10.6) k/uL RBC 3.82 L (4.30-5.90) m/uL Hgb 12.0 L D (13.0-17.5) gm/dL Hct 33.0 L (39.0-53.0) % Plt Count 84 L (150-450) k/uL Neutrophils # (1.3-7.7) k/uL Lymphocytes # (1.0-4.8) k/uL APTT (22.0-30.0) sec ABG pH 7.31 L (7.35-7.45) ABG pCO2 51 H (35-45) mmHg ABG pO2 209 H (83-108) mmHg ABG HCO3 26 H (21-25) mmol/L ABG Total CO2 27 H (19-24) mmol/L ABG O2 Saturation 99.8 H (94-97) % Hemoglobin 11.8 L (13.0-17.5) gm/dL Chloride (98-107) mmol/L Glucose (74-99) mg/dL POC Glucose (mg/dL) (70-110) mg/dL Calcium (8.4-10.2) mg/dL AST (17-59) U/L Total Protein (6.3-8.2) g/dL Albumin (3.5-5.0) g/dL Crossmatch See Detail 05/29/24 05/29/24 05/29/24 Range/Units 16:37 16:37 16:58 WBC (3.8-10.6) k/uL RBC (4.30-5.90) m/uL Hgb (13.0-17.5) gm/dL Hct (39.0-53.0) % Plt Count (150-450) k/uL Neutrophils # (1.3-7.7) k/uL Lymphocytes # (1.0-4.8) k/uL APTT 36.0 H (22.0-30.0) sec ABG pH (7.35-7.45) ABG pCO2 (35-45) mmHg ABG pO2 (83-108) mmHg ABG HCO3 (21-25) mmol/L ABG Total CO2 (19-24) mmol/L ABG O2 Saturation (94-97) % Hemoglobin (13.0-17.5) gm/dL Chloride 111 H (98-107) mmol/L Glucose 100 H (74-99) mg/dL POC Glucose (mg/dL) 122 H (70-110) mg/dL Calcium 8.1 L (8.4-10.2) mg/dL AST (17-59) U/L Total Protein 4.9 L (6.3-8.2) g/dL Albumin 2.9 L (3.5-5.0) g/dL Crossmatch 05/29/24 05/29/24 05/29/24 Range/Units 17:55 18:55 18:55 WBC 12.5 H (3.8-10.6) k/uL RBC 4.18 L (4.30-5.90) m/uL Hgb 12.7 L (13.0-17.5) gm/dL Hct 36.9 L (39.0-53.0) % Plt Count 123 L (150-450) k/uL Neutrophils # 10.3 H (1.3-7.7) k/uL Lymphocytes # (1.0-4.8) k/uL APTT (22.0-30.0) sec ABG pH (7.35-7.45) ABG pCO2 (35-45) mmHg ABG pO2 64 L (83-108) mmHg ABG HCO3 (21-25) mmol/L ABG Total CO2 (19-24) mmol/L ABG O2 Saturation 92.0 L (94-97) % Hemoglobin 12.7 L (13.0-17.5) gm/dL Chloride (98-107) mmol/L Glucose (74-99) mg/dL POC Glucose (mg/dL) 157 H (70-110) mg/dL Calcium (8.4-10.2) mg/dL AST (17-59) U/L Total Protein (6.3-8.2) g/dL Albumin (3.5-5.0) g/dL Crossmatch 05/29/24 05/29/24 05/29/24 Range/Units 19:02 19:59 20:56 WBC (3.8-10.6) k/uL RBC (4.30-5.90) m/uL Hgb (13.0-17.5) gm/dL Hct (39.0-53.0) % Plt Count (150-450) k/uL Neutrophils # (1.3-7.7) k/uL Lymphocytes # (1.0-4.8) k/uL APTT (22.0-30.0) sec ABG pH (7.35-7.45) ABG pCO2 (35-45) mmHg ABG pO2 (83-108) mmHg ABG HCO3 (21-25) mmol/L ABG Total CO2 (19-24) mmol/L ABG O2 Saturation (94-97) % Hemoglobin (13.0-17.5) gm/dL Chloride (98-107) mmol/L Glucose (74-99) mg/dL POC Glucose (mg/dL) 157 H 168 H 160 H (70-110) mg/dL Calcium (8.4-10.2) mg/dL AST (17-59) U/L Total Protein (6.3-8.2) g/dL Albumin (3.5-5.0) g/dL Crossmatch 05/29/24 05/29/24 05/29/24 Range/Units 21:25 22:02 23:01 WBC 13.3 H (3.8-10.6) k/uL RBC 4.19 L (4.30-5.90) m/uL Hgb 12.7 L (13.0-17.5) gm/dL Hct 37.0 L (39.0-53.0) % Plt Count 118 L (150-450) k/uL Neutrophils # 11.4 H (1.3-7.7) k/uL Lymphocytes # (1.0-4.8) k/uL APTT (22.0-30.0) sec ABG pH (7.35-7.45) ABG pCO2 (35-45) mmHg ABG pO2 (83-108) mmHg ABG HCO3 (21-25) mmol/L ABG Total CO2 (19-24) mmol/L ABG O2 Saturation (94-97) % Hemoglobin (13.0-17.5) gm/dL Chloride (98-107) mmol/L Glucose (74-99) mg/dL POC Glucose (mg/dL) 167 H 145 H (70-110) mg/dL Calcium (8.4-10.2) mg/dL AST (17-59) U/L Total Protein (6.3-8.2) g/dL Albumin (3.5-5.0) g/dL Crossmatch 05/30/24 05/30/24 05/30/24 Range/Units 00:04 00:59 02:00 WBC (3.8-10.6) k/uL RBC (4.30-5.90) m/uL Hgb (13.0-17.5) gm/dL Hct (39.0-53.0) % Plt Count (150-450) k/uL Neutrophils # (1.3-7.7) k/uL Lymphocytes # (1.0-4.8) k/uL APTT (22.0-30.0) sec ABG pH (7.35-7.45) ABG pCO2 (35-45) mmHg ABG pO2 (83-108) mmHg ABG HCO3 (21-25) mmol/L ABG Total CO2 (19-24) mmol/L ABG O2 Saturation (94-97) % Hemoglobin (13.0-17.5) gm/dL Chloride (98-107) mmol/L Glucose (74-99) mg/dL POC Glucose (mg/dL) 139 H 126 H 132 H (70-110) mg/dL Calcium (8.4-10.2) mg/dL AST (17-59) U/L Total Protein (6.3-8.2) g/dL Albumin (3.5-5.0) g/dL Crossmatch 05/30/24 05/30/24 05/30/24 Range/Units 02:56 04:02 04:02 WBC (3.8-10.6) k/uL RBC 3.76 L (4.30-5.90) m/uL Hgb 11.3 L (13.0-17.5) gm/dL Hct 32.8 L (39.0-53.0) % Plt Count 97 L (150-450) k/uL Neutrophils # 8.1 H (1.3-7.7) k/uL Lymphocytes # 0.8 L (1.0-4.8) k/uL APTT (22.0-30.0) sec ABG pH (7.35-7.45) ABG pCO2 (35-45) mmHg ABG pO2 (83-108) mmHg ABG HCO3 (21-25) mmol/L ABG Total CO2 (19-24) mmol/L ABG O2 Saturation (94-97) % Hemoglobin (13.0-17.5) gm/dL Chloride 110 H (98-107) mmol/L Glucose 104 H (74-99) mg/dL POC Glucose (mg/dL) 118 H (70-110) mg/dL Calcium 8.3 L (8.4-10.2) mg/dL AST 101 H (17-59) U/L Total Protein 5.3 L (6.3-8.2) g/dL Albumin 3.2 L (3.5-5.0) g/dL Crossmatch 05/30/24 05/30/24 05/30/24 Range/Units 04:02 04:57 05:53 WBC (3.8-10.6) k/uL RBC (4.30-5.90) m/uL Hgb (13.0-17.5) gm/dL Hct (39.0-53.0) % Plt Count (150-450) k/uL Neutrophils # (1.3-7.7) k/uL Lymphocytes # (1.0-4.8) k/uL APTT (22.0-30.0) sec ABG pH (7.35-7.45) ABG pCO2 (35-45) mmHg ABG pO2 (83-108) mmHg ABG HCO3 (21-25) mmol/L ABG Total CO2 (19-24) mmol/L ABG O2 Saturation (94-97) % Hemoglobin (13.0-17.5) gm/dL Chloride (98-107) mmol/L Glucose (74-99) mg/dL POC Glucose (mg/dL) 111 H 134 H 153 H (70-110) mg/dL Calcium (8.4-10.2) mg/dL AST (17-59) U/L Total Protein (6.3-8.2) g/dL Albumin (3.5-5.0) g/dL Crossmatch 05/30/24 05/30/24 05/30/24 Range/Units 06:53 08:02 10:57 WBC (3.8-10.6) k/uL RBC (4.30-5.90) m/uL Hgb (13.0-17.5) gm/dL Hct (39.0-53.0) % Plt Count (150-450) k/uL Neutrophils # (1.3-7.7) k/uL Lymphocytes # (1.0-4.8) k/uL APTT (22.0-30.0) sec ABG pH (7.35-7.45) ABG pCO2 (35-45) mmHg ABG pO2 (83-108) mmHg ABG HCO3 (21-25) mmol/L ABG Total CO2 (19-24) mmol/L ABG O2 Saturation (94-97) % Hemoglobin (13.0-17.5) gm/dL Chloride (98-107) mmol/L Glucose (74-99) mg/dL POC Glucose (mg/dL) 139 H 120 H 115 H (70-110) mg/dL Calcium (8.4-10.2) mg/dL AST (17-59) U/L Total Protein (6.3-8.2) g/dL Albumin (3.5-5.0) g/dL Crossmatch 05/30/24 Range/Units 14:00 WBC (3.8-10.6) k/uL RBC (4.30-5.90) m/uL Hgb (13.0-17.5) gm/dL Hct (39.0-53.0) % Plt Count (150-450) k/uL Neutrophils # (1.3-7.7) k/uL Lymphocytes # (1.0-4.8) k/uL APTT (22.0-30.0) sec ABG pH (7.35-7.45) ABG pCO2 (35-45) mmHg ABG pO2 (83-108) mmHg ABG HCO3 (21-25) mmol/L ABG Total CO2 (19-24) mmol/L ABG O2 Saturation (94-97) % Hemoglobin (13.0-17.5) gm/dL Chloride (98-107) mmol/L Glucose (74-99) mg/dL POC Glucose (mg/dL) 112 H (70-110) mg/dL Calcium (8.4-10.2) mg/dL AST (17-59) U/L Total Protein (6.3-8.2) g/dL Albumin (3.5-5.0) g/dL Crossmatch
[2024-05-30 16:26] LABS: Glucose,Whole Blood 107 mg/dL (70-110)
[2024-05-30 19:00] LABS: Glucose,Whole Blood 101 mg/dL (70-110)
[2024-05-30] MEDS: BENZOCAINE/MENTHOL LOZENG 1 EACH LOZENGE MUCOUS MEM PRN (20:18)
[2024-05-30 21:02] LABS: Glucose,Whole Blood 132 mg/dL (70-110)
[2024-05-30 23:04] LABS: Glucose,Whole Blood 121 mg/dL (70-110)
[2024-05-31 01:07] LABS: Glucose,Whole Blood 121 mg/dL (70-110)
[2024-05-31 02:55] LABS: Glucose,Whole Blood 120 mg/dL (70-110)
[2024-05-31] MEDS: hydrALAZINE HCL 20 MG/ML 1 ML VIAL IVP PRN (03:14)
[2024-05-31 03:27] LABS: Basophils % (A) 0 %; Eosinophils % (A) 0 %; HCT 31.3 % (39.0-53.0); HGB 10.8 gm/dL (13.0-17.5); Lymphocytes # (A) 1.3 k/uL (1.0-4.8); Lymphocytes % (A) 15 %; MCH 30.4 pg (25.0-35.0); MCHC 34.4 g/dL (31.0-37.0); MCV 88.4 fL (80.0-100.0); Mean Platelet Volume 9.8; Monocytes # (A) 0.5 k/uL (0-1.0); Monocytes % (A) 5 %; Neutrophils # (A) 7.1 k/uL (1.3-7.7); Neutrophils % (A) 79 %; RBC 3.54 m/uL (4.30-5.90); RDW 13.7 % (11.5-15.5); WBC 9.1 k/uL (3.8-10.6)
[2024-05-31 03:31] LABS: Platelet Count 81 k/uL (150-450)
[2024-05-31 03:44] LABS: Ionized Calcium 4.7 mg/dL (4.5-5.3)
[2024-05-31 03:58] LABS: ALT 31 U/L (4-49); AST 111 U/L (17-59); African American GFR (CKD) 75 (>60 ml/min/1.73 sqM); Albumin 3.3 g/dL (3.5-5.0); Alkaline Phosphatase 51 U/L (38-126); Anion Gap 6 mmol/L; Blood Urea Nitrogen 14 mg/dL (9-20); Calcium 8.5 mg/dL (8.4-10.2); Carbon Dioxide 23 mmol/L (22-30); Chloride 107 mmol/L (98-107); Glucose 117 mg/dL (74-99); Magnesium 1.8 mg/dL (1.6-2.3); Non-African American GFR(CKD) 64 (>60 ml/min/1.73 sqM); Potassium 4.3 mmol/L (3.5-5.1); Sodium 136 mmol/L (137-145); Total Bilirubin 0.9 mg/dL (0.2-1.3); Total Protein 5.5 g/dL (6.3-8.2)
[2024-05-31 05:14] LABS: Glucose,Whole Blood 128 mg/dL (70-110)
[2024-05-31] MEDS: MAGNESIUM SULFATE-D5W PMX 1 GM in DEXTROSE/WATER 1 100ML.BAG IVPB ONE (05:44)
[2024-05-31 06:53] LABS: Glucose,Whole Blood 128 mg/dL (70-110)
[2024-05-31] MEDS: METOPROLOL TARTRATE 25 MG TAB PO SCH (08:24)
[2024-05-31 09:19] LABS: Glucose,Whole Blood 151 mg/dL (70-110)
[2024-05-31] MEDS ORDERED: DEXTROSE 50% SYRINGE 50 ML IVP PRN ×2 (09:20)
--- NOTE | 2024-05-31 10:49 | P.PN ---
Subjective Progress Note Date: 05/31/24 Principal diagnosis: Two vessel and left main coronary artery disease with exertional SOB as anginal equivalent. Past medical history significant for hypertension, hyperlipidemia, borderline diabetes, obesity with a BMI of 34.7 kg/m, lifelong non-smoker, family history of premature coronary artery disease. POD #2 triple-vessel coronary artery bypass grafting using the in situ left internal mammary artery to the left anterior descending coronary artery, the left radial from the aorta to the first obtuse marginal coronary artery, a reverse saphenous vein graft from the aorta to the posterior descending coronary artery, exclusion of the left atrial appendage using a 35mm Atriclip, endoscopic harvesting of the left radial artery, endoscopic harvesting of the right greater saphenous vein, intraoperative graft flow measurements using the [employer] system, intraoperative transesophageal echocardiogram and epiaortic scanning. Postoperative acute blood loss anemia, expected given hemodilution and cardiopulmonary bypass. Patient was seen and examined in follow-up today May 31, 2024 at his bedside in the intensive care unit. He is currently sitting up to the bedside chair, is awake, alert, oriented x 3 and is in no acute apparent distress. Denies any complaints of shortness of breath at this time, although continues to complain of some surgical type pain to his left chest tube insertion site. Currently rating his pain 8-9 out of 10 on the pain scale. Reports the current pain medication regimen is controlling his pain. Right IJ cordis remains in place with current CVP pressure 8 mmHg. Mediastinal and left pleural chest tubes remain in place to low continuous wall suction -20 cm H2O. No air leak is present. Left pleural chest tube draining 10 mL output in the last 8 hours and 80 mL output in the last 24 hours, mediastinal chest tube draining 20 mL output in the last 8 hours and 120 mL output in the last 24 hours. Atrial epicardial pacemaker wires remain in place and are grounded. Oxygen saturations are 95% on 2 L nasal cannula and he is achieving 1250 mL on his incentive spirometry with encouragement. Chest x-ray and laboratory results were reviewed. Objective - Vital Signs Vital signs: Vital Signs Temp 99.1 F 05/31/24 08:00 Pulse 92 05/31/24 09:00 Resp 25 H 05/31/24 09:00 BP 133/97 05/31/24 09:00 Pulse Ox 95 05/31/24 09:00 FiO2 60 05/29/24 18:08 Intake & Output 05/30/24 05/31/24 05/31/24 18:59 06:59 18:59 Intake Total 914.869 674.470 106 Output Total 1120 580 115 Balance -205.131 94.470 -9 Weight 109.6 kg 109.4 kg Intake: IV 856 616 106 0.9 520 480 40 Albumin Human 5% 500 ml 250 In Empty Bag 1 bag @ 250 mls/hr IVPB ONCE ONE Rx#: [id number] CO/CI 20 Magnesium Sulfate-D5w Pmx 100 1 gm In Dextrose/Water 1 100ml.bag @ 100 mls/hr IVPB ONCE ONE Rx#: [id number] Pressure Bag 66 36 6 Sodium Chloride 0.9% 1, 60 000 ml @ 20 mls/hr IV . Q24H [facility] Rx#:[id number] Intake, IV Titration 58.869 58.470 Amount Insulin Regular 100 unit 5.319 58.470 In Sodium Chloride 0.9% 100 ml @ Per Protocol IV .Q0M [facility] Rx#:[id number] Nitroglycerin-D5w Pmx 50 53.55 mg In Dextrose/Water 1 250ml.bag @ 5 MCG/MIN 1.5 mls/hr IV .Q24H [facility] Rx#: [id number] Output: Chest Tube Drainage 130 70 Left Pleural Chest Tube 70 30 Mediastinal Chest Tubes 60 40 Urine 990 510 115 Other: Voiding Method Indwelling Catheter Indwelling Catheter ABP, PAP, CO, CI - Last Documented Arterial Blood Pressure 107/98 Pulmonary Artery Pressure 23/9 Cardiac Output 5.2 Cardiac Index 2.3 - Exam CONSTITUTIONAL: Sitting up to the bedside chair in the intensive care unit, appears comfortable, cooperative, no apparent acute distress. HEENT: Neck is supple, no JVD, no lymphadenopathy. Right IJ Cordis and [place]- Shlomo catheter in place and functioning. RESPIRATORY: Lungs sounds essentially clear throughout, diminished to his bilateral bases. Respirations are symmetrical and nonlabored. Currently on 2 L nasal cannula with oxygen saturations 95%. Able to achieve 1250 mL on his incentive spirometry. Strong cough. CARDIOVASCULAR: Regular rhythm and rate. S1 and S2 present, negative for S3, gallop or murmur. Bedside telemetry is showing normal sinus rhythm heart rate 97 bpm. Sternum is stable. Palpable peripheral pulses bilaterally. No calf pain or tenderness noted. Heart hugger in place with patient demonstrating appropriate use. Knee-high ANASTASIYA hose and sequential compression devices in place to his bilateral lower extremities. GASTROINTESTINAL: Abdomen soft, nontender, nondistended. Active bowel sounds present 4 quadrants. Tolerating diet. Passing flatus. No guarding or rigidity. GENITOURINARY: Melendez present draining clear, yellow urine. Urine output 425 mL in the last 8 hours. INTEGUMENTARY: Skin is warm and dry with no evidence of clubbing or cyanosis. Midline sternal incision clean dry and well approximated, covered with dry inta ct dressing. Right lower extremity EVH sites well approximated without redness or drainage. Left arm radial artery harvest sites clean, dry and approximated. No drainage or redness is present. NEUROLOGIC: Cranial nerves II through XII intact. No focal deficits. MUSKULOSKELETAL: Able to move all extremities, strength equal bilaterally, generalized weakness. PSYCHIATRIC: Alert and oriented to person place and time, appropriate affect, intact judgment and insight. INVASIVE LINES AND TUBES: Mediastinal/left pleural chest tubes present and connected to low continuous wall suction, no air leaks present. Mediastinal tube with 20 mL of thin serosanguineous drainage overnight, 120 mL output in the last 24 hours. Left pleural chest tube with 10 mL of thin serosanguineous drainage overnight, 80 mL output in the last 24 hours. Atrial epicardial pacemaker wires present, and are grounded. Right internal jugular Cordis present. Last CVP 9 mmHg. - Allied health notes Allied health notes reviewed: nursing - Labs CBC & Chem 7: 05/31/24 02:57 05/31/24 02:57 Labs: Abnormal Lab Results - Last 24 Hours (Table) 05/30/24 05/30/24 05/30/24 Range/Units 10:57 14:00 21:01 RBC (4.30-5.90) m/uL Hgb (13.0-17.5) gm/dL Hct (39.0-53.0) % Plt Count (150-450) k/uL Sodium (137-145) mmol/L Glucose (74-99) mg/dL POC Glucose (mg/dL) 115 H 112 H 132 H (70-110) mg/dL AST (17-59) U/L Total Protein (6.3-8.2) g/dL Albumin (3.5-5.0) g/dL 05/30/24 05/31/24 05/31/24 Range/Units 23:02 01:06 02:53 RBC (4.30-5.90) m/uL Hgb (13.0-17.5) gm/dL Hct (39.0-53.0) % Plt Count (150-450) k/uL Sodium (137-145) mmol/L Glucose (74-99) mg/dL POC Glucose (mg/dL) 121 H 121 H 120 H (70-110) mg/dL AST (17-59) U/L Total Protein (6.3-8.2) g/dL Albumin (3.5-5.0) g/dL 05/31/24 05/31/24 05/31/24 Range/Units 02:57 02:57 05:12 RBC 3.54 L (4.30-5.90) m/uL Hgb 10.8 L (13.0-17.5) gm/dL Hct 31.3 L (39.0-53.0) % Plt Count 81 L (150-450) k/uL Sodium 136 L (137-145) mmol/L Glucose 117 H (74-99) mg/dL POC Glucose (mg/dL) 128 H (70-110) mg/dL AST 111 H (17-59) U/L Total Protein 5.5 L (6.3-8.2) g/dL Albumin 3.3 L (3.5-5.0) g/dL 05/31/24 05/31/24 Range/Units 06:51 09:17 RBC (4.30-5.90) m/uL Hgb (13.0-17.5) gm/dL Hct (39.0-53.0) % Plt Count (150-450) k/uL Sodium (137-145) mmol/L Glucose (74-99) mg/dL POC Glucose (mg/dL) 128 H 151 H (70-110) mg/dL AST (17-59) U/L Total Protein (6.3-8.2) g/dL Albumin (3.5-5.0) g/dL - Imaging and Cardiology Chest x-ray: report reviewed, image reviewed Assessment and Plan Assessment: Two-vessel and left main coronary artery disease with exertional SOB as anginal equivalent, status post three-vessel coronary artery bypass grafting surgery History of hypertension Hyperlipidemia, cholesterol 220, LDL 148, triglycerides 181 Diabetes mellitus, hemoglobin A1c 6.6% Obesity with a BMI of 34.7 kg/m Lifelong non-smoker, preoperative FEV1 97% of predicted Family history of premature coronary artery disease Postoperative acute blood loss anemia, expected given hemodilution and cardiopulmonary bypass Plan: Continue to maximize medical therapy with aspirin, statin, Plavix and beta- cristina. Will increase metoprolol to tartrate to 25 mg p.o. twice daily with hold parameters. Continue Norvasc 2.5 mg p.o. daily at noon for radial artery spasm prophylaxis with hold parameters. Wean oxygen as tolerated. Encourage incentive spirometry use 10 times every hour while awake. Bronchodilators per pulmonology. Increase activity, ambulate as tolerated. PT/OT/cardiac rehab following. Will monitor daily labs and chest x-rays. Electrolyte replacement per protocol. GI/DVT prophylaxis. Remove right IJ cordis. Insulin management per internal medicine. Patient preoperative hemoglobin A1c 6.6%. Should remain on continuous IV insulin for 48 hours then may transition to subcutaneous per protocol. Pain control per current medication regimen. Discontinue oxycodone watch chest tubes have been removed. Remove mediastinal and left pleural chest tubes. Remove Melendez, continue to monitor and record strict accurate intake and output. Lasix 20 mg IV x 1 now. May bladder scan every 6 hours and as needed postvoid residuals, if greater than 300 mL of urine may straight cath. Daily weights. Shower daily starting tomorrow June 01, 2024. Keep atrial epicardial pacemaker wires in place, May ground pacemaker wires. Transfer orders will be placed to the third floor cardiac stepdown unit. Discharge planning is in place, anticipate discharge home within the next 48 hours, with home health care. More recommendations to follow based on patient's clinical course. Time with Patient: Greater than 30
--- NOTE | 2024-05-31 10:51 | P.PN ---
Subjective Progress Note Date: 05/31/24 Subjective: Patient seen and examined at the bedside. No acute events overnight. Patient is sitting upright. Post op day 2 All Systems reviewed and pertinent positives and negatives noted in HPI, all oth er symptoms are negative Objective: Vital signs reviewed. General: extubated, sitting upright, not in acute distress Derm: no unusual rashes/lesions, warm, surgical sites clean and intact Head: atraumatic, normocephalic, symmetric Eyes: anicteric sclera, pupils equal round reactive to light ENT: Nose and ears atraumatic Mouth: no lip lesion, mucus membranes moist Cardiovascular: S1S2 reg, no murmur, positive dorsalis pedis pulse bilateral, no edema Lungs: CTA bilateral, no rhonchi, no rales, no accessory muscle use, on room air Abdominal: soft, nondistended, no guarding Ext: no gross muscle atrophy, no contractures, Neuro: CN 1-12 are grossly intact Psych: A&O x 3, calm Data reviewed today: Labs: WBC 9.1, hemoglobin 10.8, platelet count 81, sodium 136, potassium 4.3, chloride 107, bicarb 23, glucose 117, AST 11, ALT 31, ALP 51 Images: Chest x-ray independently interpreted, postoperative changes Assessment and Plan: 59-year-old male with history of type 2 diabetes, hyperlipidemia, and hypertension initially came to the ER with a abnormal stress test done outpatient cardiology. Patient is admitted for unstable angina with cardiac catheterization showing multivessel CAD. CABG on 05/29/2024, postop day 2. #CAD status post CABG on 05/29/2024 #Postoperative anemia, anticipated #Hypertension Cardiothoracic surgery note reviewed,, nitroglycerin drip discontinued, continue on amlodipine 2.5 daily, Lasix 20 IV once Cardiology on board, recs appreciated Aspirin 325 mg p.o. daily and Plavix 75 mg p.o. daily Lipitor 80 mg p.o. at bedtime Metoprolol increased to 25 mg p.o. twice daily Echocardiogram shows LVEF of 55 to 60% with normal LV function Continue cardiac monitoring Monitor CBC and BMP Encourage incentive spirometry Cardiology and pulmonology note reviewed, continue current therapy #Type 2 diabetes HbA1c 6.6 Insulin drip discontinued -Transitioned to subcu insulin Patsy S, monitor for hypoglycemia Chronic condition: Gout: Hold colchicine, Probenecid Thank you for allowing us to participate in the care of this pleasant patient. Do not hesitate to contact us with questions. Someone can be reached from the [facility] hospitalist group all hours of the day at [phone] or via perfect serve. Objective - Vital Signs Vital signs: Vital Signs Temp 99.1 F 05/31/24 08:00 Pulse 92 05/31/24 09:00 Resp 25 H 05/31/24 09:00 BP 133/97 05/31/24 09:00 Pulse Ox 95 05/31/24 09:00 FiO2 60 05/29/24 18:08 Intake & Output 05/30/24 05/31/24 05/31/24 18:59 06:59 18:59 Intake Total 914.869 674.470 106 Output Total 1120 580 115 Balance -205.131 94.470 -9 Weight 109.6 kg 109.4 kg Intake: IV 856 616 106 0.9 520 480 40 Albumin Human 5% 500 ml 250 In Empty Bag 1 bag @ 250 mls/hr IVPB ONCE ONE Rx#: [id number] CO/CI 20 Magnesium Sulfate-D5w Pmx 100 1 gm In Dextrose/Water 1 100ml.bag @ 100 mls/hr IVPB ONCE ONE Rx#: [id number] Pressure Bag 66 36 6 Sodium Chloride 0.9% 1, 60 000 ml @ 20 mls/hr IV . Q24H [facility] Rx#:[id number] Intake, IV Titration 58.869 58.470 Amount Insulin Regular 100 unit 5.319 58.470 In Sodium Chloride 0.9% 100 ml @ Per Protocol IV .Q0M [facility] Rx#:[id number] Nitroglycerin-D5w Pmx 50 53.55 mg In Dextrose/Water 1 250ml.bag @ 5 MCG/MIN 1.5 mls/hr IV .Q24H [facility] Rx#: [id number] Output: Chest Tube Drainage 130 70 Left Pleural Chest Tube 70 30 Mediastinal Chest Tubes 60 40 Urine 990 510 115 Other: Voiding Method Indwelling Catheter Indwelling Catheter ABP, PAP, CO, CI - Last Documented Arterial Blood Pressure 107/98 Pulmonary Artery Pressure 23/9 Cardiac Output 5.2 Cardiac Index 2.3 - Labs CBC & Chem 7: 05/31/24 02:57 05/31/24 02:57 Labs: Abnormal Lab Results - Last 24 Hours (Table) 11/08/24 11/08/24 11/08/24 Range/Units 10:57 14:00 21:01 RBC (4.30-5.90) m/uL Hgb (13.0-17.5) gm/dL Hct (39.0-53.0) % Plt Count (150-450) k/uL Sodium (137-145) mmol/L Glucose (74-99) mg/dL POC Glucose (mg/dL) 115 H 112 H 132 H (70-110) mg/dL AST (17-59) U/L Total Protein (6.3-8.2) g/dL Albumin (3.5-5.0) g/dL 05/30/24 05/31/24 05/31/24 Range/Units 23:02 01:06 02:53 RBC (4.30-5.90) m/uL Hgb (13.0-17.5) gm/dL Hct (39.0-53.0) % Plt Count (150-450) k/uL Sodium (137-145) mmol/L Glucose (74-99) mg/dL POC Glucose (mg/dL) 121 H 121 H 120 H (70-110) mg/dL AST (17-59) U/L Total Protein (6.3-8.2) g/dL Albumin (3.5-5.0) g/dL 05/31/24 05/31/24 05/31/24 Range/Units 02:57 02:57 05:12 RBC 3.54 L (4.30-5.90) m/uL Hgb 10.8 L (13.0-17.5) gm/dL Hct 31.3 L (39.0-53.0) % Plt Count 81 L (150-450) k/uL Sodium 136 L (137-145) mmol/L Glucose 117 H (74-99) mg/dL POC Glucose (mg/dL) 128 H (70-110) mg/dL AST 111 H (17-59) U/L Total Protein 5.5 L (6.3-8.2) g/dL Albumin 3.3 L (3.5-5.0) g/dL 05/31/24 05/31/24 Range/Units 06:51 09:17 RBC (4.30-5.90) m/uL Hgb (13.0-17.5) gm/dL Hct (39.0-53.0) % Plt Count (150-450) k/uL Sodium (137-145) mmol/L Glucose (74-99) mg/dL POC Glucose (mg/dL) 128 H 151 H (70-110) mg/dL AST (17-59) U/L Total Protein (6.3-8.2) g/dL Albumin (3.5-5.0) g/dL
--- NOTE | 2024-05-31 10:56 | XR ---
EXAMINATION TYPE: XR chest 1V portable DATE OF EXAM: 05/31/2024 COMPARISON: 05/30/2024 HISTORY: Postop cardiac surgery. TECHNIQUE: Single frontal view of the chest is obtained. FINDINGS: The [place]-Shlomo catheter has been removed in the interval. There has been CABG surgery. This probable mild left lower lobe atelectasis and small effusion unchanged from previous. The right lung is clear. There is no pneumothorax. The pulmonary vasculature is not congested. IMPRESSION: No significant interval change with the exception of removal of the Shonto-Shlomo catheter. [facility], , 05/31/2024 10:53 AM
[2024-05-31 11:27] LABS: Glucose,Whole Blood 134 mg/dL (70-110)
[2024-05-31] MEDS: FUROSEMIDE 10 MG/ML 2 ML VIAL IV STA (12:29)
[2024-05-31] MEDS: INSULIN ASPART (NovoLOG) 100 UNIT/ML VIAL SQ SCH (12:30)
--- NOTE | 2024-05-31 13:09 | P.PN ---
Subjective Progress Note Date: 05/31/24 HISTORY OF PRESENT ILLNESS: This is a 59-year-old male with a past medical history significant for hyper tension, hyperlipidemia, and diabetes. Patient does not follow with a finance professor. Patient initially presented to the hospital this morning for an outpatient stress test. Patient states he has been having shortness of breath with exertion for approximately 2 months. Patient exercised for approximately 7 minutes on the treadmill. He was unable to reach his target heart rate due to significant shortness of breath. Patient did appear slightly ashen in color at that time. He denied having any chest pain. He did report having maybe some vague chest tightness. EKG at that time revealed ST elevation in aVR and ST depressions in inferior lateral leads. Patient's EKG changes did resolve with r est. Recommendation was made for hospital admission with cardiac catheterization to be performed tomorrow. The patient is agreeable. He is a non-smoker. He reports a family history of heart disease. He states his dad had issues with his heart valves but does not think he had any problems with h eart blockages. DIAGNOSTICS: - EKG reveals this mechanism with no signs of acute ischemia. - Laboratory data: WBC 7.9. Hemoglobin 16.2. Platelet count 156. Sodium 142. Potassium 4.3. BUN 13. Creatinine 1.24. - home cardiac medications include metoprolol tartrate 100 mg twice a day and amlodipine 10 mg daily 05/28/2024 Patient is status post cardiac catheterization revealing two-vessel coronary artery disease involving ostial circumflex and LAD with distal left main stenosis. Patient examined this morning at the bedside. Patient currently denies chest pain or pressure. He denies shortness of breath. He remains on IV heparin. Vital signs are stable. Telemetry reveals sinus mechanism. Plan is for CABG tomorrow with Dr. Bloom. Echocardiogram completed revealing ejection fraction 55 to 60%. May 30, 2024 S/p triple-vessel CABG with [place] to LAD, left radial to first OM, SVG to PDA, left atrial appendage occlusion with atrial clip, Currently has a right IJ [place]-Shlomo catheter in place, cardiac output 3.2, cardiac index 2.3, PA pressure 23 over 10 mmHg, CVP 5 mmHg Mediastinal chest tube in place, to 50 cc output since surgery Left pleural chest tube in place 350 output since surgery LANIE drain in place of left radial and SVG harvest. On 2 L of oxygen saturating 94%, 1250 mL on incentive spirometer. May 31, 2024 Patient is coming along well. Drains are out. Good inspiratory effort on spirometry, tolerating ambulation in the unit. PHYSICAL EXAM: LUNGS: Mild crackles audible, diminished breath sounds due to poor inspiratory effort. No significant wheezing or rhonchi. HEART: Regular rate and rhythm. No significant murmurs appreciated ABDOMEN: Soft. Nondistended. Nontender. EXTREMITIES: No significant lower extremity edema noticed. NEUROLOGIC: Awake and alert. Oriented x 3. Detailed neuroexam was not performed ASSESSMENT: Triple-vessel disease status post three-vessel CABG, [place] to LAD, SVG to PDA, left radial to OM Status post left atrial appendage occlusion with atrial clip. Hypertension Hyperlipidemia Diabetes Obesity: BMI 34.4 PLAN: Aspirin 325 mg, Lipitor Metoprolol, amlodipine 2.5 mg Encourage incentive spirometer use Continue to monitor in ICU with supportive care Surgical team following, appreciate recommendations Objective - Vital Signs Vital signs: Vital Signs Temp 99.1 F 05/31/24 12:00 Pulse 92 05/31/24 12:00 Resp 18 05/31/24 12:00 BP 113/66 05/31/24 12:00 Pulse Ox 93 L 05/31/24 12:00 FiO2 60 05/29/24 18:08 Intake & Output 05/30/24 05/31/24 05/31/24 18:59 06:59 18:59 Intake Total 914.869 674.470 126 Output Total 1120 580 415 Balance -205.131 94.470 -289 Weight 109.6 kg 109.4 kg Intake: IV 856 616 126 0.9 520 480 40 Albumin Human 5% 500 ml 250 In Empty Bag 1 bag @ 250 mls/hr IVPB ONCE ONE Rx#: [id number] CO/CI 20 Magnesium Sulfate-D5w Pmx 100 1 gm In Dextrose/Water 1 100ml.bag @ 100 mls/hr IVPB ONCE ONE Rx#: [id number] Pressure Bag 66 36 6 Sodium Chloride 0.9% 1, 80 000 ml @ 20 mls/hr IV . Q24H [facility] Rx#:[id number] Intake, IV Titration 58.869 58.470 Amount Insulin Regular 100 unit 5.319 58.470 In Sodium Chloride 0.9% 100 ml @ Per Protocol IV .Q0M [facility] Rx#:[id number] Nitroglycerin-D5w Pmx 50 53.55 mg In Dextrose/Water 1 250ml.bag @ 5 MCG/MIN 1.5 mls/hr IV .Q24H [facility] Rx#: [id number] Output: Chest Tube Drainage 130 70 Left Pleural Chest Tube 70 30 Mediastinal Chest Tubes 60 40 Urine 990 510 415 Other: Voiding Method Indwelling Catheter Indwelling Catheter ABP, PAP, CO, CI - Last Documented Arterial Blood Pressure 107/98 Pulmonary Artery Pressure 23/9 Cardiac Output 5.2 Cardiac Index 2.3 - Labs CBC & Chem 7: 05/31/24 02:57 05/31/24 02:57 Labs: Abnormal Lab Results - Last 24 Hours (Table) 05/30/24 05/30/24 05/30/24 Range/Units 14:00 21:01 23:02 RBC (4.30-5.90) m/uL Hgb (13.0-17.5) gm/dL Hct (39.0-53.0) % Plt Count (150-450) k/uL Sodium (137-145) mmol/L Glucose (74-99) mg/dL POC Glucose (mg/dL) 112 H 132 H 121 H (70-110) mg/dL AST (17-59) U/L Total Protein (6.3-8.2) g/dL Albumin (3.5-5.0) g/dL 05/31/24 05/31/24 05/31/24 Range/Units 01:06 02:53 02:57 RBC (4.30-5.90) m/uL Hgb (13.0-17.5) gm/dL Hct (39.0-53.0) % Plt Count (150-450) k/uL Sodium 136 L (137-145) mmol/L Glucose 117 H (74-99) mg/dL POC Glucose (mg/dL) 121 H 120 H (70-110) mg/dL AST 111 H (17-59) U/L Total Protein 5.5 L (6.3-8.2) g/dL Albumin 3.3 L (3.5-5.0) g/dL 05/31/24 05/31/24 05/31/24 Range/Units 02:57 05:12 06:51 RBC 3.54 L (4.30-5.90) m/uL Hgb 10.8 L (13.0-17.5) gm/dL Hct 31.3 L (39.0-53.0) % Plt Count 81 L (150-450) k/uL Sodium (137-145) mmol/L Glucose (74-99) mg/dL POC Glucose (mg/dL) 128 H 128 H (70-110) mg/dL AST (17-59) U/L Total Protein (6.3-8.2) g/dL Albumin (3.5-5.0) g/dL 05/31/24 05/31/24 Range/Units 09:17 11:25 RBC (4.30-5.90) m/uL Hgb (13.0-17.5) gm/dL Hct (39.0-53.0) % Plt Count (150-450) k/uL Sodium (137-145) mmol/L Glucose (74-99) mg/dL POC Glucose (mg/dL) 151 H 134 H (70-110) mg/dL AST (17-59) U/L Total Protein (6.3-8.2) g/dL Albumin (3.5-5.0) g/dL
--- NOTE | 2024-05-31 14:27 | P.PN ---
Subjective Progress Note Date: 05/31/24 This is a 59-year-old male patient, with an abnormal stress test involving the inferolateral leads and the patient underwent a cardiac catheterization the patient was found to have triple-vessel coronary artery disease. LV function is preserved with an ejection fraction of 55 to 60% with mild mitral and trace tricuspid regurgitation. He is known to have hypertension hyperlipidemia and borderline diabetes mellitus. He is a non-smoker and is morbidly obese. His body mass index is 34.4. The patient is scheduled to undergo a coronary artery bypass surgery in a.m. His CAT scan of the chest was completed on 05/27/2024 and the patient has moderate amount of calcification of the aortic arch. Moderate coronary artery calcification. Moderate aortic valve calcification. No evidence of any focal consolidation pneumothorax or pulmonary nodules. The patient's pulse ox currently is 98% on room air oxygen. He is hemodynamically stable. His labs was reviewed and the WBC count is at 6 with a hemoglobin 15.3, platelet count is at 136, BUN is 11 with a creatinine of 1.3 and a sodium level is 141. GFR is currently at 62. Normal LFTs. Denies having any chest pain. Carotid Doppler showed mild atherosclerotic plaques, no hemodynamically significant stenosis. 05/29/2024, the patient is arriving to the intensive care unit, intubated and mechanically ventilated. The patient underwent coronary bypass surgery with [place] to LAD, radial to OM and SVG to PDA PDA. Currently, intermittently tachyca rdic, propofol running at 30 mcg/kg/min. Hemodynamically stable. While on the mechanical ventilator, assist-control mode with rate of 12, tidal volume of 500, FiO2 of 100% with a PEEP of 10. Blood gas showed a pH of 7.3 with a pCO2 of 51 and pO2 of 209. Chest x-ray shows adequate expansion of both lungs. No evidence of any pneumothorax. The patient has tubes x 2 in the mediastinum and 1 in the left pleural. Performed the tubes are minimal in the order of less than 200 cc from the left and less than 100 from the right. No evidence of any air leak. No evidence of any pneumothorax. Hemodynamically stable, currently on nitroglycerin drip running at 10 mcg/min. He is producing adequate amount of urine output. Cardiac output is at 4.6 with an index of 2.1. PA pressures of 40/28. The right radial artery is malfunctioning. The blood work is still pending for now. No other significant events otherwise reported. On 05/30/2024, the patient is being seen for a follow-up. The patient was weaned off the mechanical ventilator and the patient was extubated yesterday without any major difficulties and the patient is currently postop day #1 following three-vessel bypass surgery. He is currently on 2 L of oxygen by nasal cannula. Cardiac rhythm is sinus. Cardiac output is 5.2 with an index of 2.3. PA pressures are 23/9 with a CBV of 4. Nitroglycerin is running at 5 mcg/min and the patient remains on insulin drip at 3 units an hour. Mediastinal chest tube has produced 90 cc over the past 8 hours, to 50 cc over the past 24 hours, left lower chest tube has produced 130s over the past 8 hours and 350 cc over the past 24 hours. The patient is currently on no pressors. Able to sit up on the chair and you will be ambulating soon. Hemoglobin is 11.3, the white cell count is at 9.4, the sodium levels at 138, BUN is 12 with a creatinine of 1.08 and a serum bicarb is at 23. LFTs are normal. Awake and alert and communicating. Pain is under adequate control and is using incentive barometer. On 05/31/2024, the patient is on room air oxygen. The patient is awake and alert and communicating. Wick[place]-Shlomo catheter has been removed. Chest tubes have been removed. The patient's cardiac rhythm is sinus. Denies having any specific complaints. No issues with pain. The white cell count is at 9.1, it was 10.8 and a platelet count of 81. The BUN is at 14 with a creatinine of 1.2 and a sodium of is 136 and a potassium dose of 4.3. No focal neurological deficit. Tolerating diet. No other significant events overnight. Using incentive spirometer. Patient is pulling approximately 1.25 L on the intensive spirometry. Chest x-ray was reviewed and shows some left basilar atelectatic changes, possibly a small left-sided pleural effusion. The patient is currently postop day #2. Objective - Vital Signs Vital signs: Vital Signs Temp 99.1 F 05/31/24 08:00 Pulse 92 05/31/24 09:00 Resp 25 H 05/31/24 09:00 BP 133/97 05/31/24 09:00 Pulse Ox 95 05/31/24 09:00 FiO2 60 05/29/24 18:08 Intake & Output 05/30/24 05/31/24 05/31/24 18:59 06:59 18:59 Intake Total 914.869 674.470 106 Output Total 1120 580 115 Balance -205.131 94.470 -9 Weight 109.6 kg 109.4 kg Intake: IV 856 616 106 0.9 520 480 40 Albumin Human 5% 500 ml 250 In Empty Bag 1 bag @ 250 mls/hr IVPB ONCE ONE Rx#: [id number] CO/CI 20 Magnesium Sulfate-D5w Pmx 100 1 gm In Dextrose/Water 1 100ml.bag @ 100 mls/hr IVPB ONCE ONE Rx#: [id number] Pressure Bag 66 36 6 Sodium Chloride 0.9% 1, 60 000 ml @ 20 mls/hr IV . Q24H [facility] Rx#:[id number] Intake, IV Titration 58.869 58.470 Amount Insulin Regular 100 unit 5.319 58.470 In Sodium Chloride 0.9% 100 ml @ Per Protocol IV .Q0M [facility] Rx#:[id number] Nitroglycerin-D5w Pmx 50 53.55 mg In Dextrose/Water 1 250ml.bag @ 5 MCG/MIN 1.5 mls/hr IV .Q24H [facility] Rx#: [id number] Output: Chest Tube Drainage 130 70 Left Pleural Chest Tube 70 30 Mediastinal Chest Tubes 60 40 Urine 990 510 115 Other: Voiding Method Indwelling Catheter Indwelling Catheter ABP, PAP, CO, CI - Last Documented Arterial Blood Pressure 107/98 Pulmonary Artery Pressure 23/9 Cardiac Output 5.2 Cardiac Index 2.3 - Exam The patient appeared well nourished and normally developed. Vital signs as documented.. The patient is currently on room air oxygen. Head exam is unremarkable. No scleral icterus or corneal arcus noted. Neck is without jugular venous distension, thyromegaly, or carotid bruits. Carotid upstrokes are brisk bilaterally. Lungs are clear to auscultation and percussion. Cardiac exam reveals the PMI to be normally sized and situated. Rhythm is regular. First and second heart sounds normal. No murmurs, rubs or gallops. The patient has an intrinsic normal sinus rhythm. Abdominal exam reveals normal bowel sounds, no masses, no organomegaly and no aortic enlargement. Extremities are nonedematous and both femoral and pedal pulses are normal. Examination of the skin revealed no evidence of significant rashes, suspicious appearing nevi or other concern the surgical wound site over the left upper extremity is ing lesions. Neurologically, the patient is awake and alert and the patient does not have any focal neurological deficit. Cranial nerves are essentially intact. - Labs CBC & Chem 7: 05/31/24 02:57 05/31/24 02:57 Labs: Abnormal Lab Results - Last 24 Hours (Table) 05/30/24 05/30/24 05/30/24 Range/Units 10:57 14:00 21:01 RBC (4.30-5.90) m/uL Hgb (13.0-17.5) gm/dL Hct (39.0-53.0) % Plt Count (150-450) k/uL Sodium (137-145) mmol/L Glucose (74-99) mg/dL POC Glucose (mg/dL) 115 H 112 H 132 H (70-110) mg/dL AST (17-59) U/L Total Protein (6.3-8.2) g/dL Albumin (3.5-5.0) g/dL 05/30/24 05/31/24 05/31/24 Range/Units 23:02 01:06 02:53 RBC (4.30-5.90) m/uL Hgb (13.0-17.5) gm/dL Hct (39.0-53.0) % Plt Count (150-450) k/uL Sodium (137-145) mmol/L Glucose (74-99) mg/dL POC Glucose (mg/dL) 121 H 121 H 120 H (70-110) mg/dL AST (17-59) U/L Total Protein (6.3-8.2) g/dL Albumin (3.5-5.0) g/dL 05/31/24 05/31/24 05/31/24 Range/Units 02:57 02:57 05:12 RBC 3.54 L (4.30-5.90) m/uL Hgb 10.8 L (13.0-17.5) gm/dL Hct 31.3 L (39.0-53.0) % Plt Count 81 L (150-450) k/uL Sodium 136 L (137-145) mmol/L Glucose 117 H (74-99) mg/dL POC Glucose (mg/dL) 128 H (70-110) mg/dL AST 111 H (17-59) U/L Total Protein 5.5 L (6.3-8.2) g/dL Albumin 3.3 L (3.5-5.0) g/dL 05/31/24 05/31/24 Range/Units 06:51 09:17 RBC (4.30-5.90) m/uL Hgb (13.0-17.5) gm/dL Hct (39.0-53.0) % Plt Count (150-450) k/uL Sodium (137-145) mmol/L Glucose (74-99) mg/dL POC Glucose (mg/dL) 128 H 151 H (70-110) mg/dL AST (17-59) U/L Total Protein (6.3-8.2) g/dL Albumin (3.5-5.0) g/dL Assessment and Plan Plan: Symptomatic multivessel coronary artery disease. Cardiac catheterization done 05/27/2024 showed two-vessel coronary artery disease including ostial circumflex and LAD with distal left main stenosis. The patient underwent a three-vessel bypass surgery with [place] to LAD, radial to OM and SVG to PDA. Currently postop day #2. Hemodynamically stable Postthoracotomy, chest x-ray shows no complications. Atelectatic changes left lung base. The patient is currently on room air oxygen. Chest tubes are removed. Diabetes mellitus type 2, currently on sliding scale insulin coverage. The patient is currently off insulin drip on a CIWA scale coverage. Hypertension Hyperlipidemia Osteoarthritis Obesity with a BMI of 34. Plan Incentive spirometer Currently on room air oxygen Monitor hemodynamics [place]-Shlomo has been removed Chest tubes will be removed Sliding scale insulin coverage Aspirin and Plavix Metoprolol to be started at a dose of 12.5 mg twice a day and amlodipine 2.5 mg p.o. daily. Ambulate the patient Will continue to follow
[2024-05-31 16:34] LABS: Glucose,Whole Blood 150 mg/dL (70-110)
[2024-05-31 20:08] LABS: Glucose,Whole Blood 126 mg/dL (70-110)
[2024-06-01 05:51] LABS: Glucose,Whole Blood 135 mg/dL (70-110)
[2024-06-01] MEDS: PANTOPRAZOLE 40 MG TABLET PO SCH (06:07)
--- NOTE | 2024-06-01 07:44 | XR ---
EXAMINATION TYPE: XR chest 2V DATE OF EXAM: 06/01/2024 COMPARISON: 05/31/2024 HISTORY: Postop CABG TECHNIQUE: Frontal and lateral views of the chest are obtained. FINDINGS: There are postsurgical changes of CABG surgery. There is persistent mild atelectasis left lung base. The heart is mildly prominent in size but the pulmonary vasculature is not congested. There is no ple ural effusion or pneumothorax. The osseous structures are intact. IMPRESSION: 1. Status post CABG surgery. 2. Stable mild left lower lobe atelectasis. 3. No evidence of pulmonary edema, pneumonia or overt CHF. [facility], , 06/01/2024 7:42 AM
[2024-06-01] MEDS: METOPROLOL TARTRATE 50 MG TAB PO SCH (08:08)
[2024-06-01] MEDS: HYDROcodone/APAP 10-325MG 1 EACH TAB PO SCH (09:19)
[2024-06-01 10:07] LABS: HCT 27.9 % (39.0-53.0); HGB 9.7 gm/dL (13.0-17.5); MCH 30.9 pg (25.0-35.0); MCHC 34.9 g/dL (31.0-37.0); MCV 88.5 fL (80.0-100.0); Mean Platelet Volume 9.3; RBC 3.15 m/uL (4.30-5.90); RDW 12.9 % (11.5-15.5); WBC 7.9 k/uL (3.8-10.6)
--- NOTE | 2024-06-01 10:08 | P.PN ---
Subjective Progress Note Date: 06/01/24 Principal diagnosis: Two vessel and left main coronary artery disease with exertional SOB as anginal equivalent. Past medical history significant for hypertension, hyperlipidemia, borderline diabetes, obesity with a BMI of 34.7 kg/m, lifelong non-smoker, family history of premature coronary artery disease. POD #3 triple-vessel coronary artery bypass grafting using the in situ left internal mammary artery to the left anterior descending coronary artery, the left radial from the aorta to the first obtuse marginal coronary artery, a reverse saphenous vein graft from the aorta to the posterior descending coronary artery, exclusion of the left atrial appendage using a 35mm Atriclip, endoscopic harvesting of the left radial artery, endoscopic harvesting of the right greater saphenous vein, intraoperative graft flow measurements using the Cometa-stim system, intraoperative transesophageal echocardiogram and epiaortic scanning. Postoperative acute blood loss anemia, expected given hemodilution and cardiopulmonary bypass. The patient was seen and examined in follow-up today June 01, 2024 at his bedside on the third floor cardiac stepdown unit. He is currently sitting up to the bedside chair, is awake, alert, oriented x 3 and is in no acute apparent distress. Patient is complaining of some episodes of shortness of breath, and is complaining of pain to his surgical incision sites. He states that the acetaminophen is not helping his pain, and he takes [place] 10/325 mg at home which has been reordered this morning. Oxygen saturations are 97% on room air and he is achieving 2000 mL on his incentive spirometry. His chest tubes were removed without incident yesterday and he states he feels much improved since his chest tubes have been removed. Atrial epicardial pacemaker wires remain in place and are grounded. Remote telemetry is showing normal sinus rhythm heart rate 90 bpm. The patient ambulated in the cardiac stepdown unit hallway this morning with standby assistance and tolerated well. He remains hemodynamically stable and is currently on no inotropic or pressor support. Chest x-ray results reviewed. Laboratory results remain pending. Objective - Vital Signs Vital signs: Vital Signs Temp 97.4 F L 05/31/24 20:30 Pulse 90 06/01/24 09:33 Resp 18 06/01/24 09:33 BP 132/76 06/01/24 07:53 Pulse Ox 97 06/01/24 08:51 FiO2 60 05/29/24 18:08 Intake & Output 05/31/24 06/01/24 06/01/24 18:59 06:59 18:59 Intake Total 126 540 240 Output Total 770 450 Balance -644 90 240 Weight 108 kg Intake: IV 126 0.9 40 Pressure Bag 6 Sodium Chloride 0.9% 1, 80 000 ml @ 20 mls/hr IV . Q24H [facility] Rx#:[id number] Oral 540 240 Output: Chest Tube Drainage 80 Left Pleural Chest Tube 40 Mediastinal Chest Tubes 40 Urine 690 450 Other: Voiding Method Urinal Urinal Urinal # Voids 1 ABP, PAP, CO, CI - Last Documented Arterial Blood Pressure 107/98 Pulmonary Artery Pressure 23/9 Cardiac Output 5.2 Cardiac Index 2.3 - Exam CONSTITUTIONAL: Sitting up to the bedside chair on the cardiac stepdown unit, appears comfortable, cooperative, no apparent acute distress. HEENT: Neck is supple, no JVD, no lymphadenopathy. RESPIRATORY: Lungs sounds essentially clear throughout, diminished to his bilateral bases. Respirations are symmetrical and nonlabored. Currently on room air with oxygen saturations 97%. Able to achieve 2000 mL on his incentive spirometry. Strong cough. CARDIOVASCULAR: Regular rhythm and rate. S1 and S2 present, negative for S3, gallop or murmur. Remote telemetry is showing normal sinus rhythm heart rate 90 bpm. Sternum is stable. Palpable peripheral pulses bilaterally. No calf pain or tenderness noted. Heart hugger in place with patient demonstrating appropriate use. Knee-high ANASTASIYA hose and sequential compression devices in place to his bilateral lower extremities. GASTROINTESTINAL: Abdomen soft, nontender, nondistended. Active bowel sounds present 4 quadrants. Tolerating diet. Passing flatus. No guarding or rigidity. GENITOURINARY: Continues to void. Urine output 450 mL in the last 8 hours. INTEGUMENTARY: Skin is warm and dry with no evidence of clubbing or cyanosis. Midline sternal incision clean dry and well approximated, covered with dry intact dressing. Right lower extremity EVH sites well approximated without redness or drainage. Left arm radial artery harvest sites clean, dry and approximated. No drainage or redness is present. NEUROLOGIC: Cranial nerves II through XII intact. No focal deficits. MUSKULOSKELETAL: Able to move all extremities, strength equal bilaterally. PSYCHIATRIC: Alert and oriented to person place and time, appropriate affect, intact judgment and insight. INVASIVE LINES AND TUBES: Atrial epicardial pacemaker wires present, and are grounded. - Allied health notes Allied health notes reviewed: nursing - Labs CBC & Chem 7: 05/31/24 02:57 05/31/24 02:57 Labs: Abnormal Lab Results - Last 24 Hours (Table) 05/31/24 05/31/24 05/31/24 Range/Units 11:25 16:32 20:07 POC Glucose (mg/dL) 134 H 150 H 126 H (70-110) mg/dL 06/01/24 Range/Units 05:49 POC Glucose (mg/dL) 135 H (70-110) mg/dL - Imaging and Cardiology Chest x-ray: report reviewed, image reviewed Assessment and Plan Assessment: Two-vessel and left main coronary artery disease with exertional SOB as anginal equivalent, status post three-vessel coronary artery bypass grafting surgery History of hypertension Hyperlipidemia, cholesterol 220, LDL 148, triglycerides 181 Diabetes mellitus, hemoglobin A1c 6.6% Obesity with a BMI of 34.7 kg/m Lifelong non-smoker, preoperative FEV1 97% of predicted Family history of premature coronary artery disease Postoperative acute blood loss anemia, expected given hemodilution and cardiopulmonary bypass Plan: Continue to maximize medical therapy with aspirin, statin, Plavix and beta- cristina. Will increase metoprolol tartrate to 50 mg p.o. twice daily with hold parameters. Continue Norvasc 2.5 mg p.o. daily at noon for radial artery spasm prophylaxis with hold parameters. Encourage incentive spirometry use 10 times every hour while awake. Bronchodilators per pulmonology. Increase activity, ambulate as tolerated. PT/OT/cardiac rehab following. Will monitor daily labs and chest x-rays. Electrolyte replacement per protocol. GI/DVT prophylaxis. Insulin management per internal medicine. Patient preoperative hemoglobin A1c 6.6%. Pain control per current medication regimen. Restarted the patient's home dose of [place]. Continue to monitor and record strict accurate intake and output. May bladder scan every 6 hours and as needed postvoid residuals, if greater than 300 mL of urine may straight cath. Daily weights. Shower daily. Keep atrial epicardial pacemaker wires in place, May ground pacemaker wires. Discharge planning is in place, anticipate discharge home within the next 24 hours, with home health care. More recommendations to follow based on patient's clinical course. Time with Patient: Greater than 30
[2024-06-01 10:18] LABS: ALT 34 U/L (4-49); AST 87 U/L (17-59); African American GFR (CKD) 84 (>60 ml/min/1.73 sqM); Albumin 3.3 g/dL (3.5-5.0); Alkaline Phosphatase 46 U/L (38-126); Anion Gap 10 mmol/L; Blood Urea Nitrogen 18 mg/dL (9-20); Calcium 8.6 mg/dL (8.4-10.2); Carbon Dioxide 21 mmol/L (22-30); Chloride 105 mmol/L (98-107); Glucose 142 mg/dL (74-99); Magnesium 1.7 mg/dL (1.6-2.3); Non-African American GFR(CKD) 73 (>60 ml/min/1.73 sqM); Potassium 3.6 mmol/L (3.5-5.1); Sodium 136 mmol/L (137-145); Total Protein 5.6 g/dL (6.3-8.2)
[2024-06-01 10:26] LABS: Platelet Count 87 k/uL (150-450)
[2024-06-01 11:23] LABS: Glucose,Whole Blood 149 mg/dL (70-110)
[2024-06-01] MEDS: FUROSEMIDE 10 MG/ML 2 ML VIAL IV ONE (12:18)
--- NOTE | 2024-06-01 12:18 | P.PN ---
Subjective Progress Note Date: 06/01/24 This is a 59-year-old male patient, with an abnormal stress test involving the inferolateral leads and the patient underwent a cardiac catheterization the patient was found to have triple-vessel coronary artery disease. LV function is preserved with an ejection fraction of 55 to 60% with mild mitral and trace tricuspid regurgitation. He is known to have hypertension hyperlipidemia and borderline diabetes mellitus. He is a non-smoker and is morbidly obese. His body mass index is 34.4. The patient is scheduled to undergo a coronary artery bypass surgery in a.m. His CAT scan of the chest was completed on 05/27/2024 and the patient has moderate amount of calcification of the aortic arch. Moderate coronary artery calcification. Moderate aortic valve calcification. No evidence of any focal consolidation pneumothorax or pulmonary nodules. The patient's pulse ox currently is 98% on room air oxygen. He is hemodynamically stable. His labs was reviewed and the WBC count is at 6 with a hemoglobin 15.3, platelet count is at 136, BUN is 11 with a creatinine of 1.3 and a sodium level is 141. GFR is currently at 62. Normal LFTs. Denies having any chest pain. Carotid Doppler showed mild atherosclerotic plaques, no hemodynamically significant stenosis. 05/29/2024, the patient is arriving to the intensive care unit, intubated and mechanically ventilated. The patient underwent coronary bypass surgery with DE LA VEGA to LAD, radial to OM and SVG to PDA PDA. Currently, intermittently tachyca rdic, propofol running at 30 mcg/kg/min. Hemodynamically stable. While on the mechanical ventilator, assist-control mode with rate of 12, tidal volume of 500, FiO2 of 100% with a PEEP of 10. Blood gas showed a pH of 7.3 with a pCO2 of 51 and pO2 of 209. Chest x-ray shows adequate expansion of both lungs. No evidence of any pneumothorax. The patient has tubes x 2 in the mediastinum and 1 in the left pleural. Performed the tubes are minimal in the order of less than 200 cc from the left and less than 100 from the right. No evidence of any air leak. No evidence of any pneumothorax. Hemodynamically stable, currently on nitroglycerin drip running at 10 mcg/min. He is producing adequate amount of urine output. Cardiac output is at 4.6 with an index of 2.1. PA pressures of 40/28. The right radial artery is malfunctioning. The blood work is still pending for now. No other significant events otherwise reported. On 05/30/2024, the patient is being seen for a follow-up. The patient was weaned off the mechanical ventilator and the patient was extubated yesterday without any major difficulties and the patient is currently postop day #1 following three-vessel bypass surgery. He is currently on 2 L of oxygen by nasal cannula. Cardiac rhythm is sinus. Cardiac output is 5.2 with an index of 2.3. PA pressures are 23/9 with a CBV of 4. Nitroglycerin is running at 5 mcg/min and the patient remains on insulin drip at 3 units an hour. Mediastinal chest tube has produced 90 cc over the past 8 hours, to 50 cc over the past 24 hours, left lower chest tube has produced 130s over the past 8 hours and 350 cc over the past 24 hours. The patient is currently on no pressors. Able to sit up on the chair and you will be ambulating soon. Hemoglobin is 11.3, the white cell count is at 9.4, the sodium levels at 138, BUN is 12 with a creatinine of 1.08 and a serum bicarb is at 23. LFTs are normal. Awake and alert and communicating. Pain is under adequate control and is using incentive barometer. On 05/31/2024, the patient is on room air oxygen. The patient is awake and alert and communicating. Douglas-Shlomo catheter has been removed. Chest tubes have been removed. The patient's cardiac rhythm is sinus. Denies having any specific complaints. No issues with pain. The white cell count is at 9.1, it was 10.8 and a platelet count of 81. The BUN is at 14 with a creatinine of 1.2 and a sodium of is 136 and a potassium dose of 4.3. No focal neurological deficit. Tolerating diet. No other significant events overnight. Using incentive spirometer. Patient is pulling approximately 1.25 L on the intensive spirometry. Chest x-ray was reviewed and shows some left basilar atelectatic changes, possibly a small left-sided pleural effusion. The patient is currently postop day #2. On 06/01/2024, the patient remains on room air oxygen. Ambulating. Hemodynamically stable. No chest pain. No shortness of breath. No cough or sputum production. Repeat chest x-ray from today shows postsurgical changes related to coronary bypass surgery. Some minor left basilar atelectatic changes. Cardiac rhythm remains sinus. BUN is 18 with a creatinine of 1.08 and WBC count 7.9 with a hemoglobin of 9.7. Remains on aspirin and Plavix. Remains on metoprolol 50 mg p.o. twice a day. Remains on Lipitor 40 mg p.o. daily. Remains on hydralazine as needed for blood pressure control. No other significant events overnight. Patient is postop day #3. Objective - Vital Signs Vital signs: Vital Signs Temp 97.4 F L 05/31/24 20:30 Pulse 90 06/01/24 09:33 Resp 18 06/01/24 09:33 BP 132/76 06/01/24 07:53 Pulse Ox 97 06/01/24 08:51 FiO2 60 05/29/24 18:08 Intake & Output 05/31/24 06/01/24 06/01/24 18:59 06:59 18:59 Intake Total 126 540 240 Output Total 770 450 Balance -644 90 240 Weight 108 kg Intake: IV 126 0.9 40 Pressure Bag 6 Sodium Chloride 0.9% 1, 80 000 ml @ 20 mls/hr IV . Q24H [facility] Rx#:[id number] Oral 540 240 Output: Chest Tube Drainage 80 Left Pleural Chest Tube 40 Mediastinal Chest Tubes 40 Urine 690 450 Other: Voiding Method Urinal Urinal Urinal # Voids 1 ABP, PAP, CO, CI - Last Documented Arterial Blood Pressure 107/98 Pulmonary Artery Pressure 23/9 Cardiac Output 5.2 Cardiac Index 2.3 - Exam The patient appeared well nourished and normally developed. Vital signs as documented.. The patient is currently on room air oxygen. Head exam is unremarkable. No scleral icterus or corneal arcus noted. Neck is without jugular venous distension, thyromegaly, or carotid bruits. [place] tid upstrokes are brisk bilaterally. Lungs are clear to auscultation and percussion. Cardiac exam reveals the PMI to be normally sized and situated. Rhythm is regular. First and second heart sounds normal. No murmurs, rubs or gallops. The patient has an intrinsic normal sinus rhythm. Abdominal exam reveals normal bowel sounds, no masses, no organomegaly and no aortic enlargement. Extremities are nonedematous and both femoral and pedal pulses are normal. Examination of the skin revealed no evidence of significant rashes, suspicious appearing nevi or other concern the surgical wound site over the left upper extremity is ing lesions. Neurologically, the patient is awake and alert and the patient does not have any focal neurological deficit. Cranial nerves are essentially intact. - Labs CBC & Chem 7: 06/01/24 09:52 06/01/24 09:52 Labs: Abnormal Lab Results - Last 24 Hours (Table) 05/31/24 05/31/24 05/31/24 Range/Units 11:25 16:32 20:07 POC Glucose (mg/dL) 134 H 150 H 126 H (70-110) mg/dL 06/01/24 Range/Units 05:49 POC Glucose (mg/dL) 135 H (70-110) mg/dL Assessment and Plan Plan: Symptomatic multivessel coronary artery disease. Cardiac catheterization done 05/27/2024 showed two-vessel coronary artery disease including ostial circumflex and LAD with distal left main stenosis. The patient underwent a three-vessel bypass surgery with DE LA VEGA to LAD, radial to OM and SVG to PDA. Currently postop day # 3. Hemodynamically stable Postthoracotomy, chest x-ray shows no complications. Atelectatic changes left lung base. The patient is currently on room air oxygen. Chest tubes are removed. Diabetes mellitus type 2, currently on sliding scale insulin coverage. The patient is currently off insulin drip on a CIWA scale coverage. Hypertension Hyperlipidemia Osteoarthritis Obesity with a BMI of 34. Plan Incentive spirometer Currently on room air oxygen Monitor hemodynamics Douglas-Shlomo has been removed Chest tubes will be removed Sliding scale insulin coverage Aspirin and Plavix Metoprolol to be started at a dose of 50 mg twice a day and amlodipine 2.5 mg p.o. daily. Ambulate the patient Will continue to follow
[2024-06-01] MEDS: POTASSIUM CHLORIDE ER 20 MEQ TAB.ER PO SCH (12:19)
[2024-06-01] MEDS: MAGNESIUM SULFATE-D5W PMX 1 GM in DEXTROSE/WATER 1 100ML.BAG IVPB ONE (12:19)
--- NOTE | 2024-06-01 13:32 | P.PN ---
Subjective Progress Note Date: 06/01/24 HISTORY OF PRESENT ILLNESS: This is a 59-year-old male with a past medical history significant for hyper tension, hyperlipidemia, and diabetes. 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 Patient initially presented to the hospital this morning for an outpatient stress test. Patient states he has been having shortness of breath with exertion for approximately 2 months. Patient exercised for approximately 7 minutes on the treadmill. He was unable to reach his target heart rate due to significant shortness of breath. Patient did appear slightly ashen in color at that time. He denied having any chest pain. He did report having maybe some vague chest tightness. EKG at that time revealed ST elevation in aVR and ST depressions in inferior lateral leads. Patient's EKG changes did resolve with r est. Recommendation was made for hospital admission with cardiac catheterization to be performed tomorrow. The patient is agreeable. He is a non-smoker. He reports a family history of heart disease. He states his dad had issues with his heart valves but does not think he had any problems with h eart blockages. DIAGNOSTICS: - EKG reveals this mechanism with no signs of acute ischemia. - Laboratory data: WBC 7.9. Hemoglobin 16.2. Platelet count 156. Sodium 142. Potassium 4.3. BUN 13. Creatinine 1.24. - home cardiac medications include metoprolol tartrate 100 mg twice a day and amlodipine 10 mg daily 05/28/2024 Patient is status post cardiac catheterization revealing two-vessel coronary artery disease involving ostial circumflex and LAD with distal left main stenosis. Patient examined this morning at the bedside. Patient currently denies chest pain or pressure. He denies shortness of breath. He remains on IV heparin. Vital signs are stable. Telemetry reveals sinus mechanism. Plan is for CABG tomorrow with Dr. Bloom. Echocardiogram completed revealing ejection fraction 55 to 60%. May 30, 2024 S/p triple-vessel CABG with DE LA VEGA to LAD, left radial to first OM, SVG to PDA, left atrial appendage occlusion with atrial clip, Currently has a right IJ [place] Switch-Shlomo catheter in place, cardiac output 3.2, cardiac index 2.3, PA pressure 23 over 10 mmHg, CVP 5 mmHg Mediastinal chest tube in place, to 50 cc output since surgery Left pleural chest tube in place 350 output since surgery LANIE drain in place of left radial and SVG harvest. On 2 L of oxygen saturating 94%, 1250 mL on incentive spirometer. May 31, 2024 Patient is coming along well. Drains are out. Good inspiratory effort on spirometry, tolerating ambulation in the unit. June 01, 2024 Patient is coming along well. He was transferred out of ICU. Good inspiratory effort on spirometry, ambulating in the unit. Hemodynamically stable. Good urine output. PHYSICAL EXAM: LUNGS: Mild crackles audible, diminished breath sounds due to poor inspiratory effort. No significant wheezing or rhonchi. HEART: Regular rate and rhythm. No significant murmurs appreciated ABDOMEN: Soft. Nondistended. Nontender. EXTREMITIES: No significant lower extremity edema noticed. NEUROLOGIC: Awake and alert. Oriented x 3. Detailed neuroexam was not performed ASSESSMENT: Triple-vessel disease status post three-vessel CABG, DE LA VEGA to LAD, SVG to PDA, left radial to OM Status post left atrial appendage occlusion with atrial clip. Hypertension Hyperlipidemia Diabetes Obesity: BMI 34.4 PLAN: Aspirin 325 mg, Lipitor Metoprolol, amlodipine 2.5 mg Encourage incentive spirometer use Surgical team following, appreciate recommendations Objective - Vital Signs Vital signs: Vital Signs Temp 97.4 F L 05/31/24 20:30 Pulse 85 06/01/24 12:15 Resp 18 06/01/24 12:15 BP 121/76 06/01/24 12:15 Pulse Ox 92 L 06/01/24 12:15 FiO2 60 05/29/24 18:08 Intake & Output 05/31/24 06/01/24 06/01/24 18:59 06:59 18:59 Intake Total 126 540 360 Output Total 770 450 Balance -644 90 360 Weight 108 kg Intake: IV 126 0.9 40 Pressure Bag 6 Sodium Chloride 0.9% 1, 80 000 ml @ 20 mls/hr IV . Q24H [facility] Rx#:[id number] Oral 540 360 Output: Chest Tube Drainage 80 Left Pleural Chest Tube 40 Mediastinal Chest Tubes 40 Urine 690 450 Other: Voiding Method Urinal Urinal Urinal # Voids 1 ABP, PAP, CO, CI - Last Documented Arterial Blood Pressure 107/98 Pulmonary Artery Pressure 23/9 Cardiac Output 5.2 Cardiac Index 2.3 - Labs CBC & Chem 7: 06/01/24 09:52 06/01/24 09:52 Labs: Abnormal Lab Results - Last 24 Hours (Table) 05/31/24 05/31/24 06/01/24 Range/Units 16:32 20:07 05:49 RBC (4.30-5.90) m/uL Hgb (13.0-17.5) gm/dL Hct (39.0-53.0) % Plt Count (150-450) k/uL Sodium (137-145) mmol/L Carbon Dioxide (22-30) mmol/L Glucose (74-99) mg/dL POC Glucose (mg/dL) 150 H 126 H 135 H (70-110) mg/dL AST (17-59) U/L Total Protein (6.3-8.2) g/dL Albumin (3.5-5.0) g/dL 06/01/24 06/01/24 06/01/24 Range/Units 09:52 09:52 11:21 RBC 3.15 L (4.30-5.90) m/uL Hgb 9.7 L (13.0-17.5) gm/dL Hct 27.9 L (39.0-53.0) % Plt Count 87 L (150-450) k/uL Sodium 136 L (137-145) mmol/L Carbon Dioxide 21 L (22-30) mmol/L Glucose 142 H (74-99) mg/dL POC Glucose (mg/dL) 149 H (70-110) mg/dL AST 87 H (17-59) U/L Total Protein 5.6 L (6.3-8.2) g/dL Albumin 3.3 L (3.5-5.0) g/dL
--- NOTE | 2024-06-01 13:48 | P.PN ---
Subjective Progress Note Date: 06/01/24 Subjective: Patient seen and examined at the bedside. No acute events overnight. All Systems reviewed and pertinent positives and negatives noted in HPI, all other symptoms are negative Objective: Vital signs reviewed. General: extubated, sitting upright, not in acute distress Derm: no unusual rashes/lesions, warm, surgical sites clean and intact Head: atraumatic, normocephalic, symmetric Eyes: anicteric sclera, pupils equal round reactive to light ENT: Nose and ears atraumatic Mouth: no lip lesion, mucus membranes moist Cardiovascular: S1S2 reg, no murmur, positive dorsalis pedis pulse bilateral, no edema Lungs: CTA bilateral, no rhonchi, no rales, no accessory muscle use, on room air Abdominal: soft, nondistended, no guarding Ext: no gross muscle atrophy, no contractures, Neuro: CN 1-12 are grossly intact Psych: A&O x 3, calm Data reviewed today: Labs: WBC 7.9, hemoglobin 9.7, sodium 136, bicarb 21, creatinine 1.09, blood glucose range between 1 26-1 50, magnesium 1.7 Images: Chest x-ray independently interpreted, postoperative changes, resolving Assessment and Plan: #CAD status post CABG on 05/29/2024 #Postoperative anemia, anticipated #Hypertension Cardiothoracic surgery note reviewed, continue on amlodipine 2.5 daily, metoprolol increased to 50 twice daily discharge planning Cardiology continue management as below Aspirin 325 mg p.o. daily and Plavix 75 mg p.o. daily Lipitor 40 daily Echocardiogram shows LVEF of 55 to 60% with normal LV function Continue cardiac monitoring Monitor CBC and BMP Encourage incentive spirometry Pulmonology note reviewed, continue current management #Type 2 diabetes HbA1c 6.6 Insulin drip discontinued -Transitioned to subcu insulin qACH S, monitor for hypoglycemia Chronic condition: Gout: Hold colchicine, Probenecid Thank you for allowing us to participate in the care of this pleasant patient. Do not hesitate to contact us with questions. Someone can be reached from the [facility] hospitalist group all hours of the day at [phone] or via perfect serve. Objective - Vital Signs Vital signs: Vital Signs Temp 97.4 F L 05/31/24 20:30 Pulse 85 06/01/24 12:15 Resp 18 06/01/24 12:15 BP 121/76 06/01/24 12:15 Pulse Ox 92 L 06/01/24 12:15 FiO2 60 05/29/24 18:08 Intake & Output 05/31/24 06/01/24 06/01/24 18:59 06:59 18:59 Intake Total 126 540 360 Output Total 770 450 Balance -644 90 360 Weight 108 kg Intake: IV 126 0.9 40 Pressure Bag 6 Sodium Chloride 0.9% 1, 80 000 ml @ 20 mls/hr IV . Q24H [facility] Rx#:[id number] Oral 540 360 Output: Chest Tube Drainage 80 Left Pleural Chest Tube 40 Mediastinal Chest Tubes 40 Urine 690 450 Other: Voiding Method Urinal Urinal Urinal # Voids 1 ABP, PAP, CO, CI - Last Documented Arterial Blood Pressure 107/98 Pulmonary Artery Pressure 23/9 Cardiac Output 5.2 Cardiac Index 2.3 - Labs CBC & Chem 7: 06/01/24 09:52 06/01/24 09:52 Labs: Abnormal Lab Results - Last 24 Hours (Table) 05/31/24 05/31/24 06/01/24 Range/Units 16:32 20:07 05:49 RBC (4.30-5.90) m/uL Hgb (13.0-17.5) gm/dL Hct (39.0-53.0) % Plt Count (150-450) k/uL Sodium (137-145) mmol/L Carbon Dioxide (22-30) mmol/L Glucose (74-99) mg/dL POC Glucose (mg/dL) 150 H 126 H 135 H (70-110) mg/dL AST (17-59) U/L Total Protein (6.3-8.2) g/dL Albumin (3.5-5.0) g/dL 06/01/24 06/01/24 06/01/24 Range/Units 09:52 09:52 11:21 RBC 3.15 L (4.30-5.90) m/uL Hgb 9.7 L (13.0-17.5) gm/dL Hct 27.9 L (39.0-53.0) % Plt Count 87 L (150-450) k/uL Sodium 136 L (137-145) mmol/L Carbon Dioxide 21 L (22-30) mmol/L Glucose 142 H (74-99) mg/dL POC Glucose (mg/dL) 149 H (70-110) mg/dL AST 87 H (17-59) U/L Total Protein 5.6 L (6.3-8.2) g/dL Albumin 3.3 L (3.5-5.0) g/dL
[2024-06-01] MEDS: POTASSIUM CHLORIDE ER 10 MEQ TAB.ER.PRT PO ONE (15:35)
[2024-06-01 16:13] LABS: Glucose,Whole Blood 143 mg/dL (70-110)
[2024-06-01 19:41] LABS: Glucose,Whole Blood 149 mg/dL (70-110)
[2024-06-01] MEDS: MD COMMUNICATION TO PHARMACY 1 EACH MISC PO ONE ×2 (20:10→20:26)
[2024-06-01] MEDS: PHENYLEPHRINE 10 MG/ML VIAL IV ONE (20:10)
[2024-06-01] MEDS: ALBUMIN HUMAN 25% 50 ML in EMPTY BAG 1 BAG IVPB ONE (20:11)
[2024-06-01] MEDS: ALBUMIN HUMAN 5% 500 ML in EMPTY BAG 1 BAG IVPB ONE ×5 (20:11→20:12)
[2024-06-01] MEDS: CALCIUM CHLORIDE 100 MG/ML 10 ML SYRINGE IVP ONE (20:19)
[2024-06-01] MEDS: ceFAZolin 1,000 MG in SODIUM CHLORIDE 0.9% IRRIGATIO 1,000 ML IRRIGATION ONE (20:19)
[2024-06-01] MEDS: CHLORHEXIDINE GLUCONATE 15 ML CUP MUCOUS MEM ONE (20:20)
[2024-06-01] MEDS: CLEVIDIPINE BUTYRATE 25 MG in EMPTY BAG 1 BAG IV SCH (20:20)
[2024-06-01] MEDS: DILTIAZEM 125 MG in SODIUM CHLORIDE 0.9% 100 ML IV SCH (20:20)
[2024-06-01] MEDS: ELECTROLYTE-A SOLUTION 1,000 ML with POTASSIUM CHLORIDE 100 MEQ, MAGNESIUM SULFATE 16 M... IV ONE (20:21)
[2024-06-01] MEDS: ELECTROLYTE-A SOLUTION 1,000 ML with POTASSIUM CHLORIDE 40 MEQ, MAGNESIUM SULFATE 16 ME... IV ONE (20:24)
[2024-06-01] MEDS: HEPARIN SODIUM 1,000 UN/ML (10ML VL) IV ONE (20:24)
[2024-06-01] MEDS: HEPARIN SODIUM,PORCINE (1 ML) 5,000 UNIT in SODIUM CHLORIDE 0.9% 500 ML 500 ML IV ONE (20:25)
[2024-06-01] MEDS: MAGNESIUM SULFATE 16.24 MEQ in EMPTY SYRINGE 1 SYR IV ONE (20:26)
[2024-06-01] MEDS: MANNITOL 25% 12.5 GM/50 ML VIAL IV ONE ×2 (20:26)
[2024-06-01] MEDS: NITROGLYCERIN-D5W PMX 25 MG/250 ML BTL IV ONE (20:26)
[2024-06-01] MEDS: LACTATED RINGERS 1,000 ML IV SCH ×2 (20:26→20:28)
[2024-06-01] MEDS: PAPAVERINE 360 MG in SODIUM CHLORIDE 0.9% 90 ML IV ONE (20:27)
[2024-06-01] MEDS: PROTAMINE SULFATE 10 MG/ML 25 ML VIAL IV ONE (20:27)
[2024-06-01] MEDS: PHENYLEPHRINE 40 MG in SODIUM CHLORIDE 0.9% 250 ML IV ONE (20:27)
[2024-06-01] MEDS: NITROGLYCERIN-D5W PMX 50 MG in DEXTROSE/WATER 1 250ML.BAG IV SCH (20:27)
[2024-06-01] MEDS: TRANEXAMIC ACID 2,000 MG in SODIUM CHLORIDE 0.9% 80 ML IV ONE ×2 (20:28→20:29)
[2024-06-01] MEDS: PROTAMINE SULFATE 250 MG in EMPTY BAG 1 BAG IV ONE (20:28)
[2024-06-01] MEDS: SODIUM BICARB 8.4% 50 ML SYR (1 MEQ/ML) IV ONE (20:28)
[2024-06-02] MEDS: MAGNESIUM HYDROXIDE 2,400 MG/30 ML CUP PO PRN (05:12)
[2024-06-02 05:16] LABS: Glucose,Whole Blood 146 mg/dL (70-110)
--- NOTE | 2024-06-02 06:02 | XR ---
EXAM: XR Chest, 2 Views CLINICAL HISTORY: ITS.REASON XR Reason: Postop CABG TECHNIQUE: Frontal and lateral views of the chest. COMPARISON: 06/01/2024 FINDINGS: Lungs: No consolidation. Lingular atelectasis is unchanged. Pleural space: No pleural effusion. No pneumothorax. Heart: Cardiomegaly. Status post CABG. Left atrial appendage ligation. Bones/joints: Unremarkable. No fracture or malalignment. IMPRESSION: No acute abnormality.
[2024-06-02 08:03] LABS: Basophils % (A) 0 %; Eosinophils # (A) 0.2 k/uL (0-0.7); Eosinophils % (A) 2 %; HCT 30.7 % (39.0-53.0); HGB 10.6 gm/dL (13.0-17.5); Lymphocytes # (A) 1.2 k/uL (1.0-4.8); Lymphocytes % (A) 15 %; MCH 30.3 pg (25.0-35.0); MCHC 34.4 g/dL (31.0-37.0); MCV 87.9 fL (80.0-100.0); Mean Platelet Volume 11.6; Monocytes # (A) 0.6 k/uL (0-1.0); Monocytes % (A) 7 %; Neutrophils # (A) 5.9 k/uL (1.3-7.7); Neutrophils % (A) 73 %; Platelet Count 125 k/uL (150-450); RBC 3.49 m/uL (4.30-5.90); RDW 13.2 % (11.5-15.5)
[2024-06-02 08:22] LABS: African American GFR (CKD) 81 (>60 ml/min/1.73 sqM); Anion Gap 11 mmol/L; Blood Urea Nitrogen 18 mg/dL (9-20); Calcium 8.9 mg/dL (8.4-10.2); Carbon Dioxide 24 mmol/L (22-30); Chloride 102 mmol/L (98-107); Glucose 116 mg/dL (74-99); Non-African American GFR(CKD) 70 (>60 ml/min/1.73 sqM); Sodium 137 mmol/L (137-145)
[2024-06-02 09:54] VITALS: TEMP 98
--- NOTE | 2024-06-02 10:01 | P.PN ---
Subjective Progress Note Date: 06/02/24 Principal diagnosis: Two vessel and left main coronary artery disease with exertional SOB as anginal equivalent. Past medical history significant for hypertension, hyperlipidemia, borderline diabetes, obesity with a BMI of 34.7 kg/m, lifelong non-smoker, family history of premature coronary artery disease. POD #4 triple-vessel coronary artery bypass grafting using the in situ left internal mammary artery to the left anterior descending coronary artery, the left radial from the aorta to the first obtuse marginal coronary artery, a reverse saphenous vein graft from the aorta to the posterior descending coronary artery, exclusion of the left atrial appendage using a 35mm Atriclip, endoscopic harvesting of the left radial artery, endoscopic harvesting of the right greater saphenous vein, intraoperative graft flow measurements using the Myrl-stim system, intraoperative transesophageal echocardiogram and epiaortic scanning. Postoperative acute blood loss anemia, expected given hemodilution and cardiopulmonary bypass. The patient was seen and examined in follow-up today June 02, 2024 at his bedside on the third floor cardiac stepdown unit. The patient is currently sitting up to the bedside chair, eating his breakfast, is awake, alert, oriented x 3 and is in no acute apparent distress. Patient denies any complaints of shortness of breath this a.m., and states his pain is much better controlled this morning from previous days. The patient is complaining of some clicking with movement and coughing to his sternum. He was restarted on his home dose of Alabaster yesterday. He reports he has been up ambulating in the cardiac stepdown unit hallway independently and tolerating well. He remains hemodynamically stable and is currently no inotropic or pressor support. Oxygen saturations are 96% on room air and he is achieving 2500 mL on his incentive spirometry with encouragement. Remote telemetry is showing normal sinus rhythm heart rate 93 bpm. He continues on metoprolol to tartrate 50 mg p.o. twice daily. He has been afebrile in the last 24 hours. Chest x-ray and laboratory results were reviewed. Objective - Vital Signs Vital signs: Vital Signs Temp 98.1 F 06/02/24 04:00 Pulse 78 06/02/24 04:00 Resp 12 06/02/24 04:00 BP 125/76 06/02/24 04:00 Pulse Ox 96 06/02/24 04:00 FiO2 60 05/29/24 18:08 Intake & Output 06/01/24 06/02/24 06/02/24 18:59 06:59 18:59 Intake Total 880 Output Total 200 550 Balance 680 -550 Weight 108.2 kg Intake: Oral 880 Output: Urine 200 550 Other: Voiding Method Urinal Urinal ABP, PAP, CO, CI - Last Documented Arterial Blood Pressure 107/98 Pulmonary Artery Pressure 23/9 Cardiac Output 5.2 Cardiac Index 2.3 - Exam CONSTITUTIONAL: Sitting up to the bedside chair on the cardiac stepdown unit, appears comfortable, cooperative, no apparent acute distress. HEENT: Neck is supple, no JVD, no lymphadenopathy. RESPIRATORY: Lungs sounds essentially clear throughout, diminished to his bilateral bases. Respirations are symmetrical and nonlabored. Currently on room air with oxygen saturations 96%. Able to achieve 2500 mL on his incentive spirometry. Strong cough. CARDIOVASCULAR: Regular rhythm and rate. S1 and S2 present, negative for S3, gallop or murmur. Remote telemetry is showing normal sinus rhythm heart rate 93 bpm. Sternum is stable, some clicking with coughing. Palpable peripheral pulses bilaterally. No calf pain or tenderness noted. Heart hugger in place with patient demonstrating appropriate use. Knee-high ANASTASIYA hose and sequential compression devices in place to his bilateral lower extremities. GASTROINTESTINAL: Abdomen soft, nontender, nondistended. Active bowel sounds present 4 quadrants. Tolerating diet. Passing flatus. No guarding or rigidity. GENITOURINARY: Continues to void. Urine output 350 mL in the last 8 hours. INTEGUMENTARY: Skin is warm and dry with no evidence of clubbing or cyanosis. Midline sternal incision clean dry and well approximated, covered with dry intact dressing. Right lower extremity EVH sites well approximated without redness or drainage. Left arm radial artery harvest sites clean, dry and approximated. No drainage or redness is present. NEUROLOGIC: Cranial nerves II through XII intact. No focal deficits. MUSKULOSKELETAL: Able to move all extremities, strength equal bilaterally. PSYCHIATRIC: Alert and oriented to person place and time, appropriate affect, intact judgment and insight. INVASIVE LINES AND TUBES: Atrial epicardial pacemaker wires present, and are grounded. - Allied health notes Allied health notes reviewed: nursing - Labs CBC & Chem 7: 06/02/24 06:58 06/02/24 06:58 Labs: Abnormal Lab Results - Last 24 Hours (Table) 06/01/24 06/01/24 06/01/24 Range/Units 09:52 09:52 11:21 RBC 3.15 L (4.30-5.90) m/uL Hgb 9.7 L (13.0-17.5) gm/dL Hct 27.9 L (39.0-53.0) % Plt Count 87 L (150-450) k/uL Sodium 136 L (137-145) mmol/L Carbon Dioxide 21 L (22-30) mmol/L Glucose 142 H (74-99) mg/dL POC Glucose (mg/dL) 149 H (70-110) mg/dL AST 87 H (17-59) U/L Total Protein 5.6 L (6.3-8.2) g/dL Albumin 3.3 L (3.5-5.0) g/dL 06/01/24 06/01/24 06/02/24 Range/Units 16:02 19:39 05:14 RBC (4.30-5.90) m/uL Hgb (13.0-17.5) gm/dL Hct (39.0-53.0) % Plt Count (150-450) k/uL Sodium (137-145) mmol/L Carbon Dioxide (22-30) mmol/L Glucose (74-99) mg/dL POC Glucose (mg/dL) 143 H 149 H 146 H (70-110) mg/dL AST (17-59) U/L Total Protein (6.3-8.2) g/dL Albumin (3.5-5.0) g/dL - Imaging and Cardiology Chest x-ray: report reviewed, image reviewed Assessment and Plan Assessment: Two-vessel and left main coronary artery disease with exertional SOB as anginal equivalent, status post three-vessel coronary artery bypass grafting surgery History of hypertension Hyperlipidemia, cholesterol 220, LDL 148, triglycerides 181 Diabetes mellitus, hemoglobin A1c 6.6% Obesity with a BMI of 34.7 kg/m Lifelong non-smoker, preoperative FEV1 97% of predicted Family history of premature coronary artery disease Postoperative acute blood loss anemia, expected given hemodilution and cardiopulmonary bypass Plan: Continue to maximize medical therapy with aspirin, statin, Plavix and beta- cristina. Continue metoprolol tartrate to 50 mg p.o. twice daily with hold parameters. Continue Norvasc 2.5 mg p.o. daily at noon for radial artery spasm prophylaxis with hold parameters. Encourage incentive spirometry use 10 times every hour while awake. Broncho dilators per pulmonology. Increase activity, ambulate as tolerated. PT/OT/cardiac rehab following. Will monitor daily labs and chest x-rays. Electrolyte replacement per protocol. GI/DVT prophylaxis. Insulin management per internal medicine. Patient preoperative hemoglobin A1c 6.6%. Pain control per current medication regimen. Restarted the patient's home dose of Alabaster. Continue to monitor and record strict accurate intake and output. May bladder scan every 6 hours and as needed postvoid residuals, if greater than 300 mL of urine may straight cath. Daily weights. Shower daily. We will remove his atrial epicardial pacemaker wires. Bedrest for 1 hour post pacemaker wire removal. Discharge planning is in place, anticipate discharge home within the next 24 hours, with home health care. More recommendations to follow based on patient's clinical course. Time with Patient: Greater than 30
[2024-06-02 11:29] LABS: Glucose,Whole Blood 107 mg/dL (70-110)
--- NOTE | 2024-06-02 11:29 | P.PN ---
Subjective Progress Note Date: 06/02/24 Subjective: Patient seen and examined at the bedside. No acute events overnight. All Systems reviewed and pertinent positives and negatives noted in HPI, all other symptoms are negative Objective: Vital signs reviewed. General: extubated, sitting upright, not in acute distress Derm: no unusual rashes/lesions, warm, surgical sites clean and intact Head: atraumatic, normocephalic, symmetric Eyes: anicteric sclera, pupils equal round reactive to light ENT: Nose and ears atraumatic Mouth: no lip lesion, mucus membranes moist Cardiovascular: S1S2 reg, no murmur, positive dorsalis pedis pulse bilateral, no edema Lungs: CTA bilateral, no rhonchi, no rales, no accessory muscle use, on room air Abdominal: soft, nondistended, no guarding Ext: no gross muscle atrophy, no contractures, Neuro: CN 1-12 are grossly intact Psych: A&O x 3, calm, mood stable, Data reviewed today: Labs: WBC 8.0, hemoglobin 10.6, platelet count 125, sodium 137, potassium 4.0, creatinine 1.13, glucose range from [id number] Images: Chest x-ray independently interpreted, postoperative changes, resolving Assessment and Plan: #CAD status post CABG on 05/29/2024 #Postoperative anemia, anticipated #Hypertension Cardiothoracic surgery note reviewed, continue on amlodipine 2.5 daily, metopro lol increased to 100 mg twice daily discharge planning Cardiology continue management as below Aspirin 325 mg p.o. daily and Plavix 75 mg p.o. daily Lipitor 40 daily Echocardiogram shows LVEF of 55 to 60% with normal LV function Continue cardiac monitoring Monitor CBC and BMP Encourage incentive spirometry Pulmonology note reviewed, continue current management #Type 2 diabetes HbA1c 6.6 Insulin drip discontinued -Transitioned to subcu insulin qACH S, monitor for hypoglycemia Chronic condition: Gout: Hold colchicine, Probenecid Thank you for allowing us to participate in the care of this pleasant patient. Do not hesitate to contact us with questions. Someone can be reached from the [facility] hospitalist group all hours of the day at [phone] or via perfect serve. I have seen and evaluated the patient today. Discussed with the resident and agree with the residents finding and plan as documented in the resident's note. Changes highlighted in blue font. Objective - Vital Signs Vital signs: Vital Signs Temp 98.0 F 06/02/24 08:30 Pulse 86 06/02/24 09:04 Resp 16 06/02/24 08:30 BP 145/61 06/02/24 08:30 Pulse Ox 98 06/02/24 09:05 FiO2 60 05/29/24 18:08 Intake & Output 06/01/24 06/02/24 06/02/24 18:59 06:59 18:59 Intake Total 880 240 Output Total 200 550 Balance 680 -550 240 Weight 108.2 kg Intake: Oral 880 240 Output: Urine 200 550 Other: Voiding Method Urinal Urinal Urinal ABP, PAP, CO, CI - Last Documented Arterial Blood Pressure 107/98 Pulmonary Artery Pressure 23/9 Cardiac Output 5.2 Cardiac Index 2.3 - Labs CBC & Chem 7: 06/02/24 06:58 06/02/24 06:58 Labs: Abnormal Lab Results - Last 24 Hours (Table) 06/01/24 06/01/24 06/02/24 Range/Units 16:02 19:39 05:14 RBC (4.30-5.90) m/uL Hgb (13.0-17.5) gm/dL Hct (39.0-53.0) % Plt Count (150-450) k/uL Glucose (74-99) mg/dL POC Glucose (mg/dL) 143 H 149 H 146 H (70-110) mg/dL 06/02/24 06/02/24 Range/Units 06:58 06:58 RBC 3.49 L (4.30-5.90) m/uL Hgb 10.6 L (13.0-17.5) gm/dL Hct 30.7 L (39.0-53.0) % Plt Count 125 L (150-450) k/uL Glucose 116 H (74-99) mg/dL POC Glucose (mg/dL) (70-110) mg/dL
[2024-06-02] MEDS: FUROSEMIDE 10 MG/ML 2 ML VIAL IV ONE (11:32)
[2024-06-02] MEDS: METOPROLOL TARTRATE 50 MG TAB PO STA (11:33)
[2024-06-02] MEDS: POTASSIUM CHLORIDE ER 10 MEQ TAB.ER.PRT PO ONE (11:33)
--- NOTE | 2024-06-02 11:42 | P.PN ---
Subjective Progress Note Date: 06/02/24 This is a 59-year-old male patient, with an abnormal stress test involving the inferolateral leads and the patient underwent a cardiac catheterization the patient was found to have triple-vessel coronary artery disease. LV function is preserved with an ejection fraction of 55 to 60% with mild mitral and trace tricuspid regurgitation. He is known to have hypertension hyperlipidemia and borderline diabetes mellitus. He is a non-smoker and is morbidly obese. His body mass index is 34.4. The patient is scheduled to undergo a coronary artery bypass surgery in a.m. His CAT scan of the chest was completed on 05/27/2024 and the patient has moderate amount of calcification of the aortic arch. Moderate coronary artery calcification. Moderate aortic valve calcification. No evidence of any focal consolidation pneumothorax or pulmonary nodules. The patient's pulse ox currently is 98% on room air oxygen. He is hemodynamically stable. His labs was reviewed and the WBC count is at 6 with a hemoglobin 15.3, platelet count is at 136, BUN is 11 with a creatinine of 1.3 and a sodium level is 141. GFR is currently at 62. Normal LFTs. Denies having any chest pain. Carotid Doppler showed mild atherosclerotic plaques, no hemodynamically significant stenosis. 05/29/2024, the patient is arriving to the intensive care unit, intubated and mechanically ventilated. The patient underwent coronary bypass surgery with [place] VEGA to LAD, radial to OM and SVG to PDA PDA. Currently, intermittently tachycardic, propofol running at 30 mcg/kg/min. Hemodynamically stable. While on the mechanical ventilator, assist-control mode with rate of 12, tidal volume of 500, FiO2 of 100% with a PEEP of 10. Blood gas showed a pH of 7.3 with a pCO2 of 51 and pO2 of 209. Chest x-ray shows adequate expansion of both lungs. No evidence of any pneumothorax. The patient has tubes x 2 in the mediastinum and 1 in the left pleural. Performed the tubes are minimal in the order of less than 200 cc from the left and less than 100 from the right. No evidence of any air leak. No evidence of any pneumothorax. Hemodynamically stable, currently on nitroglycerin drip running at 10 mcg/min. He is producing adequate amount of urine output. Cardiac output is at 4.6 with an index of 2.1. PA pressures of 40/28. The right radial artery is malfunctioning. The blood work is still pending for now. No other significant events otherwise reported. On 05/30/2024, the patient is being seen for a follow-up. The patient was weaned off the mechanical ventilator and the patient was extubated yesterday without any major difficulties and the patient is currently postop day #1 following three-vessel bypass surgery. He is currently on 2 L of oxygen by nasal cannula. Cardiac rhythm is sinus. Cardiac output is 5.2 with an index of 2.3. PA pressures are 23/9 with a CBV of 4. Nitroglycerin is running at 5 mcg/min and the patient remains on insulin drip at 3 units an hour. Mediastinal chest tube has produced 90 cc over the past 8 hours, to 50 cc over the past 24 hours, left lower chest tube has produced 130s over the past 8 hours and 350 cc over the past 24 hours. The patient is currently on no pressors. Able to sit up on the chair and you will be ambulating soon. Hemoglobin is 11.3, the white cell count is at 9.4, the sodium levels at 138, BUN is 12 with a creatinine of 1.08 and a serum bicarb is at 23. LFTs are normal. Awake and alert and communicating. Pain is under adequate control and is using incentive barometer. On 05/31/2024, the patient is on room air oxygen. The patient is awake and alert and communicating. [place] catheter has been removed. Chest tubes have been removed. The patient's cardiac rhythm is sinus. Denies having any specific complaints. No issues with pain. The white cell count is at 9.1, it was 10.8 and a platelet count of 81. The BUN is at 14 with a creatinine of 1.2 and a sodium of is 136 and a potassium dose of 4.3. No focal neurological deficit. Tolerating diet. No other significant events overnight. Using incentive spirometer. Patient is pulling approximately 1.25 L on the intensive spirometry. Chest x-ray was reviewed and shows some left basilar atelectatic changes, possibly a small left-sided pleural effusion. The patient is currently postop day #2. On 06/01/2024, the patient remains on room air oxygen. Ambulating. Hemodynamically stable. No chest pain. No shortness of breath. No cough or sputum production. Repeat chest x-ray from today shows postsurgical changes related to coronary bypass surgery. Some minor left basilar atelectatic changes. Cardiac rhythm remains sinus. BUN is 18 with a creatinine of 1.08 and WBC count 7.9 with a hemoglobin of 9.7. Remains on aspirin and Plavix. Remains on metoprolol 50 mg p.o. twice a day. Remains on Lipitor 40 mg p.o. daily. Remains on hydralazine as needed for blood pressure control. No other significant events overnight. Patient is postop day #3. The patient is seen today June 02, 2024 in follow-up on the selective care unit. He is currently sitting up in a chair. Awake and alert in no acute distress. Postoperative day #4. He is maintaining good O2 saturations in the 90s on room air. He is pulling up to 2500 mL on his incentive spirometer. Chest x-ray shows no acute abnormalities. White count 8.0. Hemoglobin 10.6. Platelets 125. Sodium 137. Potassium 4.0. Bicarb 24. BUN 18. Creatinine 1.13. Glucose 116. None DuoNeb inhalations. Heparin for DVT prophylaxis. His pain is well-managed. Objective - Vital Signs Vital signs: Vital Signs Temp 98.0 F 06/02/24 08:30 Pulse 86 06/02/24 09:04 Resp 16 06/02/24 08:30 BP 145/61 06/02/24 08:30 Pulse Ox 98 06/02/24 09:05 FiO2 60 05/29/24 18:08 Intake & Output 06/01/24 06/02/24 06/02/24 18:59 06:59 18:59 Intake Total 880 240 Output Total 200 550 Balance 680 -550 240 Weight 108.2 kg Intake: Oral 880 240 Output: Urine 200 550 Other: Voiding Method Urinal Urinal Urinal ABP, PAP, CO, CI - Last Documented Arterial Blood Pressure 107/98 Pulmonary Artery Pressure 23/9 Cardiac Output 5.2 Cardiac Index 2.3 - Exam GENERAL EXAM: Alert, active, pleasant 59-year-old male, on room air, fairly comfortable in no apparent distress. HEAD: Normocephalic. EYES: Normal reaction of pupils, equal size. NOSE: Clear with pink turbinates. THROAT: No erythema or exudates. NECK: No masses, no JVD. CHEST: Sternum stable. Heart hugger in place. LUNGS: Equal air entry with no crackles, wheeze, rhonchi or dullness. CVS: S1 and S2 normal with no audible murmur, regular rhythm. ABDOMEN: No hepatosplenomegaly, normal bowel sounds, no guarding or rigidity. SPINE: No scoliosis or deformity SKIN: No rashes CENTRAL NERVOUS SYSTEM: No focal deficits, tone is normal in all 4 extremities. EXTREMITIES: There is no peripheral edema. No clubbing, no cyanosis. Peripheral pulses are intact. - Labs CBC & Chem 7: 06/02/24 06:58 06/02/24 06:58 Labs: Abnormal Lab Results - Last 24 Hours (Table) 06/01/24 06/01/24 06/02/24 Range/Units 16:02 19:39 05:14 RBC (4.30-5.90) m/uL Hgb (13.0-17.5) gm/dL Hct (39.0-53.0) % Plt Count (150-450) k/uL Glucose (74-99) mg/dL POC Glucose (mg/dL) 143 H 149 H 146 H (70-110) mg/dL 06/02/24 06/02/24 Range/Units 06:58 06:58 RBC 3.49 L (4.30-5.90) m/uL Hgb 10.6 L (13.0-17.5) gm/dL Hct 30.7 L (39.0-53.0) % Plt Count 125 L (150-450) k/uL Glucose 116 H (74-99) mg/dL POC Glucose (mg/dL) (70-110) mg/dL Assessment and Plan Assessment: Symptomatic multivessel coronary artery disease. Cardiac catheterization done 05/27/2024 showed two-vessel coronary artery disease including ostial circumflex and LAD with distal left main stenosis. The patient underwent a three-vessel bypass surgery with [place] to LAD, radial to OM and SVG to PDA. Currently postop day #4. Hemodynamically stable Postthoracotomy, chest x-ray shows no complications. The patient is currently on room air oxygen. Chest tubes are removed Diabetes mellitus type 2, currently on sliding scale insulin coverage. Off the insulin drip Hypertension Hyperlipidemia Osteoarthritis Obesity with a BMI of 34 Plan: The patient was seen and evaluated Chest x-ray, labs and medications reviewed Currently stable and on room air Pulling 2500 ml on the incentive spirometry Remains on bronchodilators Increase his activity as tolerated Heparin for DVT prophylaxis Home once cleared by CT service This patient was seen independently by the pulmonary nurse practitioner addressing pulmonary issues I have personally seen and examined the patient, performed the documentation and the assessment and plan as written. Number of minutes spent on the visit: 24 Dictation was produced using [employer] dictation software. Please excuse any grammatical, word or spelling errors.
[2024-06-02 12:03] VITALS: BP 119/70; RESP 18
--- NOTE | 2024-06-02 13:04 | P.PN ---
Subjective HISTORY OF PRESENT ILLNESS: This is a 59-year-old male with a past medical history significant for hypertension, hyperlipidemia, and diabetes. Patient does not follow with a body design checker. Patient initially presented to the hospital this morning for an outpatient stress test. Patient states he has been having shortness of breath with exertion for approximately 2 months. Patient exercised for approximately 7 minutes on the treadmill. He was unable to reach his target heart rate due to significant shortness of breath. Patient did appear slightly ashen in color at that time. He denied having any chest pain. He did report having maybe some vague chest tightness. EKG at that time revealed ST elevation in aVR and ST depressions in inferior lateral leads. Patient's EKG changes did resolve with rest. Recommendation was made for hospital admission with cardiac catheterization to be performed tomorrow. The patient is agreeable. He is a non-smoker. He reports a family history of heart disease. He states his dad had issues with his heart valves but does not think he had any problems with heart blockages. DIAGNOSTICS: - EKG reveals this mechanism with no signs of acute ischemia. - Laboratory data: WBC 7.9. Hemoglobin 16.2. Platelet count 156. Sodium 142. Potassium 4.3. BUN 13. Creatinine 1.24. - Current home cardiac medications include metoprolol tartrate 100 mg twice a day and amlodipine 10 mg daily 05/28/2024 Patient is status post cardiac catheterization revealing two-vessel coronary artery disease involving ostial circumflex and LAD with distal left main stenosis. Patient examined this morning at the bedside. Patient currently denies chest pain or pressure. He denies shortness of breath. He remains on IV heparin. Vital signs are stable. Telemetry reveals sinus mechanism. Plan is for CABG tomorrow with Dr. Bloom. Echocardiogram completed revealing ejection fraction 55 to 60%. 06/02/2024 Patient is status post CABG x 3 vessel. Postop day #4. Patient examined this morning at the bedside. Patient currently denies chest pain or pressure. He denies shortness of breath. He has been up ambulating in the hallway. He is pulling 2500 cc on his incentive spirometer. Telemetry reveals sinus mechanism. Vital signs are stable. PHYSICAL EXAM: VITAL SIGNS: Reviewed. GENERAL: Well-developed in no acute distress. HEENT: Head is normocephalic. Pupils are equal, round. Sclerae anicteric. Mucous membranes of the mouth are moist. Neck supple. No JVD or thyromegaly LUNGS: Respirations even and unlabored. Lungs essentially clear to auscultation bilaterally. HEART: Regular rate and rhythm. S1 and S2 heard. ABDOMEN: Soft. Nondistended. Nontender. EXTREMITIES: Normal range of motion. No clubbing or cyanosis. Peripheral pulses intact. No lower extremity edema NEUROLOGIC: Awake and alert. Oriented x 3. ASSESSMENT: Exertional shortness of breath x 2 months Abnormal stress test with ST elevation in aVR and ST depression in inferior lateral leads, status post cardiac catheterization revealing two-vessel coronary artery disease and left main disease Status post three-vessel CABG Hypertension Hyperlipidemia Diabetes Obesity: BMI 34.4 PLAN: Continue postoperative management per CT surgery Continue telemetry monitoring Continue current cardiac medications Increase activity as tolerated Encourage use of incentive spirometer Further recommendations pending patient course Patient to follow-up postdischarge with Dr. Morel Nurse practitioner note has been reviewed by physician. Signing provider agrees with the documented findings, assessment, and plan of care documented by INTAKE RN as a scribe. Objective - Vital Signs Vital signs: Vital Signs Temp 98.0 F 06/02/24 08:30 Pulse 86 06/02/24 12:17 Resp 18 06/02/24 12:00 BP 119/70 06/02/24 12:00 Pulse Ox 97 06/02/24 12:00 FiO2 60 05/29/24 18:08 Intake & Output 06/01/24 06/02/24 06/02/24 18:59 06:59 18:59 Intake Total 880 240 Output Total 200 550 Balance 680 -550 240 Weight 108.2 kg Intake: Oral 880 240 Output: Urine 200 550 Other: Voiding Method Urinal Urinal Urinal ABP, PAP, CO, CI - Last Documented Arterial Blood Pressure 107/98 Pulmonary Artery Pressure 23/9 Cardiac Output 5.2 Cardiac Index 2.3 - Labs CBC & Chem 7: 06/02/24 06:58 06/02/24 06:58 Labs: Abnormal Lab Results - Last 24 Hours (Table) 06/01/24 06/01/24 06/02/24 Range/Units 16:02 19:39 05:14 RBC (4.30-5.90) m/uL Hgb (13.0-17.5) gm/dL Hct (39.0-53.0) % Plt Count (150-450) k/uL Glucose (74-99) mg/dL POC Glucose (mg/dL) 143 H 149 H 146 H (70-110) mg/dL 06/02/24 06/02/24 Range/Units 06:58 06:58 RBC 3.49 L (4.30-5.90) m/uL Hgb 10.6 L (13.0-17.5) gm/dL Hct 30.7 L (39.0-53.0) % Plt Count 125 L (150-450) k/uL Glucose 116 H (74-99) mg/dL POC Glucose (mg/dL) (70-110) mg/dL
--- NOTE | 2024-06-02 13:34 | P.DS ---
Providers Date of admission: 05/27/24 12:20 Expected date of discharge: 06/02/24 Attending physician: Farhan Bloom Consults: 05/26/24 11:25 Consult Physician Routine Consulting Provider: Tevin Albert Consult Reason/Comments: Abnormal stress test Do you want consulting provider notified?: Yes 05/27/24 11:09 Consult Physician Routine Consulting Provider: Percy Marie Consult Reason/Comments: CABG eval Do you want consulting provider notified?: Yes 05/28/24 06:44 Consult Physician Routine Consulting Provider: David Lazo Consult Reason/Comments: pulm clearance for open heart Do you want consulting provider notified?: Already Contacted 05/28/24 09:18 Consult to Anesthesia Routine Consulting Provider: Anesthesia,Services Consult Reason/Comments: Cardiac Surgery Pre-Op 05/29/24 15:34 Consult Physician Routine Consulting Provider: Jamaal Roberts Consult Reason/Comments: med mgmt Do you want consulting provider notified?: Already Contacted Primary care physician: Bhavesh Plummer [facility] Course: FINAL DIAGNOSIS: Two-vessel and left main coronary artery disease with exertional SOB as anginal equivalent, status post three-vessel coronary artery bypass grafting surgery History of hypertension Hyperlipidemia, cholesterol 220, LDL 148, triglycerides 181 Diabetes mellitus, hemoglobin A1c 6.6%, on Ozempic as an outpatient Obesity with a BMI of 34.7 kg/m Lifelong non-smoker, preoperative FEV1 97% of predicted Family history of premature coronary artery disease Postoperative acute blood loss anemia, expected given hemodilution and cardio pulmonary bypass PRINCIPAL PROCEDURE: 1. Triple vessel coronary artery bypass grafting using the in situ left internal mammary artery to the left anterior descending coronary artery, the left radial from the aorta to the first obtuse marginal coronary artery, a reverse saphenous vein graft from the aorta to the posterior descending coronary artery 2. Exclusion of the left atrial appendage using a 35mm Atriclip 3. Endoscopic harvesting of the left radial artery 4. Endoscopic harvesting of the right greater saphenous vein 5. Intraoperative graft flow measurements using the Medi-stim system 6. Intraoperative epiaortic scanning 7. Intraoperative transesophageal echocardiogram performed by anesthesia HISTORY OF PRESENT ILLNESS: This is a 59-year-old gentleman who follows outpatient with Dr. Bhavesh Plummer for internal medicine. The patient presented to the emergency department here on May 26, 2024 after having a stress test completed which was abnormal. The patient endorsed progressive shortness of breath with exertion over a 1 month period which prompted a stress test completed. The patient had denied any complaints of chest pain, nausea, vomiting, dizziness, lightheadedness, or any other symptomatology. The stress test was abnormal with ST elevation in lead aVR and ST depression in the inferolateral leads. Subsequently, due to the positive stress test he was re commended to report to [facility] emergency room for evaluation and treatment with plans for heart catheterization. On May 27, 2020 for a cardiac catheterization was completed which revealed two-vessel coronary artery disease involving the ostial circumflex and left anterior descending coronary artery with distal left main stenosis. A transthoracic 2D echocardiogram was also completed which demonstrated a preserved left ventricular systolic function with EF 55 to 60%, no wall motion abnormalities, mild mitral and trace tricuspid regurgitation. Due to the stress test results and findings on his cardiac catheterization a consult was placed to cardiothoracic surgery for further evaluation and treatment recommendations. The patient was seen and examined by Dr. Percy Marie from cardiothoracic surgery, treatment options were discussed with the patient by Dr. Marie including myocardial vascularization surgery. Risks and benefits of surgery including the STS risk or were discussed with the patient and knowing and understanding the risks he wished to proceed with the surgical option. HOSPITAL COURSE: The patient was brought to the preoperative area 05/29/24, after obtaining consent, the patient was prepared in the usual fashion, and subsequently taken to the operating room where Dr. Farhan Bloom performed a triple vessel coronary artery bypass grafting using the in situ left internal mammary artery to the left anterior descending coronary artery, the left radial from the aorta to the first obtuse marginal coronary artery, a reverse saphenous vein graft from the aorta to the posterior descending coronary artery. Upon completion of surgery the patient was transferred to the cardiovascular intensive care unit where he was recovered and monitored hemodynamically. He was extubated, all lines, tubes, and drips were discontinued when appropriate, and he was transferred to 3 cardiac stepdown unit for further monitoring and rehabilitation. His oxygen was titrated down, he continued to work with physical and occupational therapy, he was tolerating an oral diet, his pain was controlled, and he was ready to be discharged to home with residential home care on postoperative day #4. He received written and verbal instruction regarding his medications, activity restrictions, signs and symptoms requiring physician notification, and follow-up appointments. Patient Condition at Discharge: Stable Plan - Discharge Summary Discharge Rx Participant: No New Discharge Prescriptions: New Pantoprazole [Protonix] 40 mg PO AC-BRKFST #30 tab Sennosides-Docusate Sodium [Senokot-S] 2 each PO HS #14 tab Aspirin 325 mg PO DAILY #30 tab Atorvastatin [Lipitor] 40 mg PO DAILY #30 tab amLODIPine [Norvasc] 2.5 mg PO DAILY@1200 #30 tab Clopidogrel [Plavix] 75 mg PO DAILY #30 tab Discontinued amLODIPine [Norvasc] 10 mg PO DAILY No Action Probenecid [Benemid] 500 mg PO BID HYDROcodone/APAP 10-325MG [[place] 10-325] 1 tab PO TID Colchicine 0.6 mg PO BID PRN PRN Reason: gout flare up Semaglutide [Ozempic] 0.5 mg SQ MO Febuxostat [Uloric] 80 mg PO DAILY Metoprolol Tartrate [Lopressor] 100 mg PO BID Discharge Medication List Colchicine 0.6 mg PO BID PRN 05/26/24 [History] Febuxostat [Uloric] 80 mg PO DAILY 05/26/24 [History] HYDROcodone/APAP 10-325MG [[place] 10-325] 1 tab PO TID 05/26/24 [History] Metoprolol Tartrate [Lopressor] 100 mg PO BID 05/26/24 [History] Probenecid [Benemid] 500 mg PO BID 05/26/24 [History] Semaglutide [Ozempic] 0.5 mg SQ MO 05/26/24 [History] Aspirin 325 mg PO DAILY #30 tab 06/02/24 [Rx] Atorvastatin [Lipitor] 40 mg PO DAILY #30 tab 06/02/24 [Rx] Clopidogrel [Plavix] 75 mg PO DAILY #30 tab 06/02/24 [Rx] Pantoprazole [Protonix] 40 mg PO AC-BRKFST #30 tab 06/02/24 [Rx] Sennosides-Docusate Sodium [Senokot-S] 2 each PO HS #14 tab 06/02/24 [Rx] amLODIPine [Norvasc] 2.5 mg PO DAILY@1200 #30 tab 06/02/24 [Rx] Follow up Appointment(s)/Referral(s): Radha May MD [STAFF PHYSICIAN] - 06/16/24 1:00 pm Rehab [facility],Cardiac [NON-STAFF] - 1 Week Farhan Bloom MD [STAFF PHYSICIAN] - 06/27/24 10:00 am Pancho Padron NPC [Nurse Practitioner] - 06/11/24 11:45 am (Please follow-up in the office located at [address] [place] [address], [facility], phone number is [phone]) Residential Home,Health [NON-STAFF] - 1-2 Days Darnell Morel MD [STAFF PHYSICIAN] - 06/13/24 2:15 pm Deborah Vences PAC [REFERRING] - 06/06/24 2:20 pm (Please follow-up in the [place] office located at [address] [place] [address]) Ambulatory/Diagnostic Orders: Complete Blood Count w/diff [LAB.AMB] Time Frame: 06/05/24, Facility: [facility], Location: [facility] Comprehensive Metabolic Panel [LAB.AMB] Time Frame: 06/05/24, Facility: [facility], Location: [facility] Activity/Diet/Wound Care/Special Instructions: DISCHARGE INSTRUCTIONS: 1. No driving for 4 weeks, or until physician gives their ok. 2. The patient should sleep in their own bed, no medical bed needed. 3. Stairs are not an issue. If the bedroom is upstairs, it is advised that the patient go up at night and down in the morning for the first week. Go slowly, using handrail and take 1 step at a time. 4. ANASTASIYA hose are to be worn for 30 days post surgery or until physician discontinues. 5. Heart hugger is to be worn 100% of the time until physician discontinues.(except when showering) 6. No lifting, pushing, or pulling more than 10 pounds for 12 weeks. The physician will advise of any restriction changes. 7. The patient is expected to continue the prescribed walking program. 8. Continue pain control per as needed orders. 9. Continue with incentive spirometry and splinting/heart hugger until otherwise directed by the physician. 10. Must shower daily using liquid antibacterial soap 11. Routine sternal incision care. No powders, lotions, ointments on incisions. No dressings are necessary on incisions unless they are draining. Dermabond tape is to remain on sternal incision until surgeon follow-up. 12. Please call surgeon/PATIENT SERVICES REPRESENTATIVE for temp greater than 101 F or purulent drainage from incisions. 13. You should weigh yourself daily, record and bring log with you to follow up appointments. 14. All prescriptions given by surgeon for 30 days. Refills need to be filled through critical care clinical nurse specialist/primary care physician. 15. A Red armband has been placed on the patient. It should be worn for 30 days post discharge from surgery and will be removed by the cardiac surgeons. If an ER visit is necessary, please make sure the number on the Red armband is called before going to ER. 16. You have been referred to and are expected to begin Cardiac Rehab in approximately 4-6 weeks. 17. Quitting smoking is the most important step you can take to improve your health. For additional information and assistance to quit smoking, please call the [place] tobacco quit line (1-749-IIHN-NOW/ ) or online: [email or web address] HOME HEALTH SERVICES TO PROVIDE: RN SKILLED HOME CARE SERVICES FOR POST-OP SURGICAL PATIENTS WITH THE FOLLOWING: Coronary Artery Bypass Surgery (CABG), Mitral Valve Replacement/Repair ( MVR), Aortic Valve Replacement/Repair (AVR) RN TO CONTINUE EDUCATION FROM ``ROAD TO A HEALTH HEART PATIENT EDUCATION MANUAL (GIVEN TO PATIENT IN THE HOSPITAL) MEDICATION RECONCILIATION WITH EDUCATION NEEDED ON FIRST HOME VISIT EMPHASIZE IMPORTANCE OF WEARING BREAST SUPPORT/HEART HUGGER ENCOURAGE USE OF INCENTIVE SPIROMETER 10 X EVERY HOUR WHILE AWAKE ENCOURAGE UTILIZATION OF LOWER EXTREMITY COMPRESSION STOCKINGS/ANASTASIYA HOSE and ELEVATE LEGS ABOVE LEVEL OF HEART WHILE AT REST. ENCOURAGE AMBULATION 3-5x/day INCREASING TOLERATES, WHILE AVOIDING EXTREMES IN TEMPERATURE FREQUENCY: RN TO OPEN THE PATIENT WITHIN 24 HOURS OF DISCHARGE FROM THE HOSPITAL WITH TELEHEALTH INSTALLED AT [facility], RN TO VISIT 2-3 X A WEEK FOR 4 WEEKS ESTABLISHED BY PATIENT NEEDS. LABORATORY: CBC, CMP TO BE DRAWN ON THE THIRD DAY HOME, (RAN STAT) FAX RESULTS TO [phone]. TELEHEALTH PARAMETERS: WEIGHT: NOTIFY MD OF WEIGHT GAIN OF 2 LBS IN 24 HOURS OR 5 LBS IN ONE WEEK HR: NOTIFY MD OF HR <55 BPM OR HR>100 BPM BP: NOTIFY MD IF BP <90/55 OR BP>140/100 O2 SAT: NOTIFY MD IF PO2<93% ON ROOM AIR SEND TELEHEALTH REPORT TO LEAD JAVA PROGRAMMER AND CARDIOVASCULAR SURGEON THE FIRST WEEK OF CARE AND THEN BI-WEEKLY. PLEASE ADDITIONALLY COMMUNICATE ANY ABNORMALS AND NEW FINDINGS TO THE SURGEONS OFFICE. Discharge Disposition: HOME WITH HOME HEALTH SERVICES
[2024-06-02 15:37] VITALS: PULSE 88
[2024-06-02] MEDS ORDERED: METOPROLOL TARTRATE 50 MG TAB PO SCH (21:00)
--- NOTE | 2024-06-04 17:42 | CDI ---
Documentation Clarification Form Date: 06/04/2024 05:34:42 PM From: Brittany Regalado Phone: Admit Date: 05/27/2024 12:20:00 PM Patient Name: Nilson Boswell Visit Number: [id number] Discharge Date: 06/02/2024 03:35:00 PM ATTENTION: The Clinical Documentation Specialists (CDI) and [facility] Coding Staff appreciate your assistance in clarifying documentation. Please respond to the clarification below the line at the bottom and electronically sign. The CDI & [facility] Coding staff will review the response and follow-up if needed. Please note: Queries are made part of the Legal Health Record. If you have any questions, please contact the author of this message via ITS. Doctor/Provider: Farhan Bloom Non ST elevation myocardial infarction is documented per 05/29 Op Note which may lack sufficient clinical evidence/support in the medical record. Additional clarification is requested. History/Risk Factors: 59yo M, CAD, HTN, HLD, DMII, obesity, ABLA, FHx CAD Clinical Indicators: Troponin: <0.012; Troponins trend negative EKG Results: EKG at that time revealed STelevationin aVR and ST depressions in inferior lateral leads. Patient's EKG changes did resolve with rest. Treatment: Triple vesselcoronary artery bypass grafting Please clarify the type of DE, if known: [ ] NSTEMI (type 1) [ ] Type II DE due to (please specify etiology) [ x] NSTEMI ruled out [ ] Unable to determine [ ] Other Condition, please specify (Template Last Revised: September 2020) MTDD
== END 2024-06-02 15:35 | disposition home health service (06) | DRG 234 ==
LOC: CATHCVL 10:31 → 6NMEDSUR 12:21 → OBSVTOIN 05-27 12:20 → 2SICU 05-29 07:20 → 3SCARD 05-31 20:42
PROVIDERS: ADMIT Surgery; ATTEND Surgery
PROC: 4A023N7 Measurement of Cardiac Sampling and Pressure, Left Heart, Percutaneous Approach (ICD-10-PCS; 2024-05-28)
PROC: B2111ZZ Fluoroscopy of Multiple Coronary Arteries using Low Osmolar Contrast (ICD-10-PCS; 2024-05-28)
PROC: 06BP4ZZ Excision of Right Saphenous Vein, Percutaneous Endoscopic Approach (ICD-10-PCS; 2024-05-29)
PROC: 05BA4ZZ Excision of Left Brachial Vein, Percutaneous Endoscopic Approach (ICD-10-PCS; 2024-05-29)
PROC: 02L70CK Occlusion of Left Atrial Appendage with Extraluminal Device, Open Approach (ICD-10-PCS; 2024-05-29)
PROC: B24BZZ4 Ultrasonography of Heart with Aorta, Transesophageal (ICD-10-PCS; 2024-05-29)
PROC: 30243H0 Transfusion of Autologous Whole Blood into Central Vein, Percutaneous Approach (ICD-10-PCS; 2024-05-29)
PROC: 5A1221Z Performance of Cardiac Output, Continuous (ICD-10-PCS; 2024-05-29)
PROC: 4A0305C Measurement of Arterial Flow, Coronary, Open Approach (ICD-10-PCS; 2024-05-29)
PROC: 02100Z9 Bypass Coronary Artery, One Artery from Left Internal Mammary, Open Approach (ICD-10-PCS; principal; 2024-05-29 08:00)
PROC: 02100AW Bypass Coronary Artery, One Artery from Aorta with Autologous Arterial Tissue, Open Approach (ICD-10-PCS; 2024-05-29 08:00)
PROC: 021009W Bypass Coronary Artery, One Artery from Aorta with Autologous Venous Tissue, Open Approach (ICD-10-PCS; 2024-05-29 08:00)
DX: I25.110 Atherosclerotic heart disease of native coronary artery with unstable angina pectoris (principal); D62 Acute posthemorrhagic anemia; E66.01 Morbid (severe) obesity due to excess calories; E11.9 Type 2 diabetes mellitus without complications; I70.0 Atherosclerosis of aorta; Z68.34 Body mass index [BMI] 34.0-34.9, adult; I10 Essential (primary) hypertension; I35.8 Other nonrheumatic aortic valve disorders; M19.90 Unspecified osteoarthritis, unspecified site; I25.10 Atherosclerotic heart disease of native coronary artery without angina pectoris; M10.9 Gout, unspecified; E78.5 Hyperlipidemia, unspecified; Z82.49 Family history of ischemic heart disease and other diseases of the circulatory system; Z79.891 Long term (current) use of opiate analgesic; Z79.899 Other long term (current) drug therapy; Z79.85 Long-term (current) use of injectable non-insulin antidiabetic drugs
CPT/HCPCS: 71045; 71046; 71250; 80048; 80053; 80061; 80074; 82330; 82805; 83036; 83735; 84443; 84484; 85025; 85027; 85610; 85730; 86850; 86891; 86900; 86901; 86920; 87070; 93005; 93306; 93458; 93880; 93922; 93970; 94002; 94150; 94640; 94760; 96372; 99285

== ENCOUNTER → 2024-05-26 | Outpatient (CLI) | payer BC, OTHER ==
--- NOTE | 2024-05-26 18:15 | CA ---
Exercise Stress Test Report Name: Nilson Boswell Exam Date: 05/26/2024 09:07 Exam Location: [place] Stress Ht (in): 70 Wt (lb): 240 BSA: 2.26 Ordering Phys: Bhavesh Plummer DO Referring Phys: Deborah Vences Technologist: Ajit Osorio Age: 59 Gender: M : 1965 Procedure CPT: Indications: R06.02 SOB R07.9 CHEST PAIN ICD-10 Codes: Patient History: Medications: Amlodipine, Metoprolol Meds past 24 hrs: Pretest Chest Pain: STRESS TEST Govind Protocol Exercise Duration (min:sec): 07:[address] Depressions (mm): Angina Score: White Score: Resting HR (bpm): 79 Peak HR (bpm): 123 Resting BP (mmHg): 137 / 85 Peak BP (mmHg): 185 / 81 MPHR: 159 Target HR: 135 % MPHR: 77 METS: 9.8 Total Dose: Peak Dose: Atropine: Double Product: 29268 BP Response: Stress Termination: Dyspnea Stress Symptoms: Severe Shortness of Breath Stress Summary: ECG ANALYSIS Resting ECG: Normal sinus rhythm normal axis normal intervals Stress ECG: Patient exercised on Govind protocol for 7 and half minutes achieving 9 METs 77% of predicted maximal heart rate. Test had to be stopped secondary to severe shortness of breath [address] segment depression with T-wave inversion and [address] elevation in aVR CONCLUSIONS Limited exercise tolerance Abnormal stress test at submaximal workload Dr. Darnell Morel MD (Electronically Signed) Final Date: 26 May 2024 18:14
== END | disposition home or self-care (01) ==
LOC: RADNMMAIN 08:28
PROVIDERS: ATTEND Family Medicine
DX: R06.02 Shortness of breath (principal); R94.39 Abnormal result of other cardiovascular function study
CPT/HCPCS: 93017